=== PATIENT | female | born 1950 | race Caucasian/White ===

== ENCOUNTER 2019-09-13 11:34 | Inpatient (IN) | payer MEDICARE, OTHER ==
[2019-09-13] MEDS ORDERED: IPRATROPIUM 0.5 MG/2.5 ML NEBU INHALATION STA (12:07)
[2019-09-13] MEDS ORDERED: ALBUTEROL NEBULIZED 2.5 MG/3 ML INHALATION STA (12:07)
--- NOTE | 2019-09-13 12:17 | ED ---
General Adult HPI - General Chief complaint: Recheck/Abnormal Lab/Rx Stated complaint: Cold, slurred speech Time Seen by Provider: 09/13/19 11:55 Source: patient, RN notes reviewed, old records reviewed Mode of arrival: ambulatory - History of Present Illness Initial comments: 69-year-old female presenting for evaluation of cough and chest congestion. Patient has had symptoms for 24 hours. She has history of hypertension, congestive heart failure, sickle cell anemia. She recently moved to the area and does not have primary care physician or metal cutter. She states her last hemoglobin was normal but is unable to tell me the exact number. She denies weight gain, denies lower extremity edema. She denies significant chest pain. Denies abdominal pain nausea or vomiting. She is accompanied by her son who states she had an episode of mild confusion and slurred speech which resolved very quickly./The just seconds this morning while eating breakfast. She is at baseline with no complaints of focal numbness or weakness. No headache. - Related Data Allergies Allergy/AdvReac Type Severity Reaction Status Date / Time No Known Allergies Allergy Verified 09/13/19 14:12 Review of Systems ROS Statement: Those systems with pertinent positive or pertinent negative responses have been documented in the HPI. ROS Other: All systems not noted in ROS Statement are negative. Past Medical History Past Medical History: Heart Failure, Hyperlipidemia, Hypertension History of Any Multi-Drug Resistant Organisms: None Reported Past Surgical History: Tubal Ligation Smoking Status: Current every day smoker Past Alcohol Use History: Occasional Past Drug Use History: None Reported General Exam General appearance: alert, in no apparent distress Head exam: Present: atraumatic, normocephalic Eye exam: Present: normal appearance, PERRL. Absent: scleral icterus ENT exam: Present: mucous membranes dry Neck exam: Present: normal inspection. Absent: tenderness, meningismus Respiratory exam: Present: wheezes, rhonchi. Absent: respiratory distress Cardiovascular Exam: Present: regular rate, normal rhythm GI/Abdominal exam: Present: soft. Absent: distended, tenderness, guarding Extremities exam: Present: normal inspection, normal capillary refill. Absent: pedal edema Neurological exam: Present: alert, oriented X3, CN II-XII intact. Absent: motor sensory deficit Psychiatric exam: Present: normal affect, normal mood Skin exam: Present: warm, dry, intact. Absent: cyanosis, diaphoretic Course Vital Signs 09/13/19 09/13/19 09/13/19 11:42 12:28 12:38 Temperature 98.1 F Pulse Rate 82 86 Respiratory 18 16 Rate Blood Pressure 207/130 O2 Sat by Pulse 94 L Oximetry 09/13/19 09/13/19 09/13/19 12:51 13:42 13:52 Temperature Pulse Rate 88 Respiratory Rate Blood Pressure 233/138 213/137 O2 Sat by Pulse Oximetry 09/13/19 14:11 Temperature Pulse Rate Respiratory Rate Blood Pressure 202/128 O2 Sat by Pulse Oximetry EKG Findings - EKG Comments: EKG Findings:: EKG: Sinus rhythm with occasional PVC, left ventricular hypertrophy, no ST segment elevation, rate of 82, TN interval 164, QRS duration 88, QTC 493 Medical Decision Making - Medical Decision Making 69-year-old female history of hypertension, congestive heart failure, previous CVA, presenting with dyspnea for the past 24-48 hours mild cough. No URI symp toms. History of congestive heart failure. Patient also had an episode of slurred speech and dysarthria which lasted only momentarily. Patient well- appearing, hypertensive on initial exam with an NIH is 0. She has a CBC showing hemoglobin 13.0, no signs of anemia consistent with her history of sickle cell anemia. She has potassium 3.4 which is replaced. Chest x-ray showing pulmonary vascular congestion. This is treated with IV Lasix. She has a BNP of 9500 consistent with heart failure. She has a head CT which is negative for intracranial hemorrhage, there is significant ischemic change and remote occipital infarction. She's given an aspirin in the emergency department. She will be admitted for both hypertensive urgency, CHF, and rule out CVA. Cardiology and neurology placed on consult. Case is discussed with the admitting physician Dr. [email or web address] - Lab Data Result diagrams: 09/13/19 12:12 09/13/19 12:12 Lab Results 09/13/19 09/13/19 09/13/19 Range/Units 12:12 12:12 12:12 WBC 4.8 (3.8-10.6) k/uL RBC 4.83 (3.80-5.40) m/uL Hgb 13.0 (11.4-16.0) gm/dL Hct 39.8 (34.0-46.0) % MCV 82.3 (80.0-100.0) fL MCH 26.8 (25.0-35.0) pg MCHC 32.6 (31.0-37.0) g/dL RDW 14.2 (11.5-15.5) % Plt Count 171 (150-450) k/uL Neutrophils % 55 % Lymphocytes % 36 % Monocytes % 4 % Eosinophils % 2 % Basophils % 1 % Neutrophils # 2.6 (1.3-7.7) k/uL Lymphocytes # 1.7 (1.0-4.8) k/uL Monocytes # 0.2 (0-1.0) k/uL Eosinophils # 0.1 (0-0.7) k/uL Basophils # 0.0 (0-0.2) k/uL Retic Count (0.5-2.0) % PT (9.0-12.0) sec INR (<1.2) APTT (22.0-30.0) sec Sodium 142 (137-145) mmol/L Potassium 3.4 L (3.5-5.1) mmol/L Chloride 104 (98-107) mmol/L Carbon Dioxide 28 (22-30) mmol/L Anion Gap 10 mmol/L BUN 15 (7-17) mg/dL Creatinine 0.87 (0.52-1.04) mg/dL Est GFR (CKD-EPI)AfAm 78 (>60 ml/min/1.73 sqM) Est GFR (CKD-EPI)NonAf 68 (>60 ml/min/1.73 sqM) Glucose 106 H (74-99) mg/dL Plasma Lactic Acid Reuben (0.7-2.0) mmol/L Calcium 9.7 (8.4-10.2) mg/dL Magnesium 2.0 (1.6-2.3) mg/dL Total Bilirubin 1.8 H (0.2-1.3) mg/dL AST 55 H (14-36) U/L ALT 71 H (4-34) U/L Alkaline Phosphatase 181 H (38-126) U/L NT-Pro-B Natriuret Pep 9500 pg/mL Total Protein 8.3 H (6.3-8.2) g/dL Albumin 4.5 (3.5-5.0) g/dL Urine Color Urine Appearance (Clear) Urine pH (5.0-8.0) Ur Specific [place] (1.001-1.035) Urine Protein (Negative) Urine Glucose (UA) (Negative) Urine Ketones (Negative) Urine Blood (Negative) Urine Nitrite (Negative) Urine Bilirubin (Negative) Urine Urobilinogen (<2.0) mg/dL Ur Leukocyte Esterase (Negative) Urine RBC (0-5) /hpf Urine WBC (0-5) /hpf Urine WBC Clumps (None) /hpf Ur Squamous Epith Cells (0-4) /hpf Urine Bacteria (None) /hpf Urine Mucus (None) /hpf Influenza Type A RNA (Not Detectd) Influenza Type B (PCR) (Not Detectd) 09/13/19 09/13/19 09/13/19 Range/Units 12:12 12:12 12:21 WBC (3.8-10.6) k/uL RBC (3.80-5.40) m/uL Hgb (11.4-16.0) gm/dL Hct (34.0-46.0) % MCV (80.0-100.0) fL MCH (25.0-35.0) pg MCHC (31.0-37.0) g/dL RDW (11.5-15.5) % Plt Count (150-450) k/uL Neutrophils % % Lymphocytes % % Monocytes % % Eosinophils % % Basophils % % Neutrophils # (1.3-7.7) k/uL Lymphocytes # (1.0-4.8) k/uL Monocytes # (0-1.0) k/uL Eosinophils # (0-0.7) k/uL Basophils # (0-0.2) k/uL Retic Count 2.1 H (0.5-2.0) % PT 11.8 (9.0-12.0) sec INR 1.1 (<1.2) APTT 25.5 (22.0-30.0) sec Sodium (137-145) mmol/L Potassium (3.5-5.1) mmol/L Chloride (98-107) mmol/L Carbon Dioxide (22-30) mmol/L Anion Gap mmol/L BUN (7-17) mg/dL Creatinine (0.52-1.04) mg/dL Est GFR (CKD-EPI)AfAm (>60 ml/min/1.73 sqM) Est GFR (CKD-EPI)NonAf (>60 ml/min/1.73 sqM) Glucose (74-99) mg/dL Plasma Lactic Acid Reuben (0.7-2.0) mmol/L Calcium (8.4-10.2) mg/dL Magnesium (1.6-2.3) mg/dL Total Bilirubin (0.2-1.3) mg/dL AST (14-36) U/L ALT (4-34) U/L Alkaline Phosphatase (38-126) U/L NT-Pro-B Natriuret Pep pg/mL Total Protein (6.3-8.2) g/dL Albumin (3.5-5.0) g/dL Urine Color Urine Appearance (Clear) Urine pH (5.0-8.0) Ur Specific [place] (1.001-1.035) Urine Protein (Negative) Urine Glucose (UA) (Negative) Urine Ketones (Negative) Urine Blood (Negative) Urine Nitrite (Negative) Urine Bilirubin (Negative) Urine Urobilinogen (<2.0) mg/dL Ur Leukocyte Esterase (Negative) Urine RBC (0-5) /hpf Urine WBC (0-5) /hpf Urine WBC Clumps (None) /hpf Ur Squamous Epith Cells (0-4) /hpf Urine Bacteria (None) /hpf Urine Mucus (None) /hpf Influenza Type A RNA Not Detected (Not Detectd) Influenza Type B (PCR) Not Detected (Not Detectd) 09/13/19 09/13/19 Range/Units 12:31 12:36 WBC (3.8-10.6) k/uL RBC (3.80-5.40) m/uL Hgb (11.4-16.0) gm/dL Hct (34.0-46.0) % MCV (80.0-100.0) fL MCH (25.0-35.0) pg MCHC (31.0-37.0) g/dL RDW (11.5-15.5) % Plt Count (150-450) k/uL Neutrophils % % Lymphocytes % % Monocytes % % Eosinophils % % Basophils % % Neutrophils # (1.3-7.7) k/uL Lymphocytes # (1.0-4.8) k/uL Monocytes # (0-1.0) k/uL Eosinophils # (0-0.7) k/uL Basophils # (0-0.2) k/uL Retic Count (0.5-2.0) % PT (9.0-12.0) sec INR (<1.2) APTT (22.0-30.0) sec Sodium (137-145) mmol/L Potassium (3.5-5.1) mmol/L Chloride (98-107) mmol/L Carbon Dioxide (22-30) mmol/L Anion Gap mmol/L BUN (7-17) mg/dL Creatinine (0.52-1.04) mg/dL Est GFR (CKD-EPI)AfAm (>60 ml/min/1.73 sqM) Est GFR (CKD-EPI)NonAf (>60 ml/min/1.73 sqM) Glucose (74-99) mg/dL Plasma Lactic Acid Reuben 1.2 (0.7-2.0) mmol/L Calcium (8.4-10.2) mg/dL Magnesium (1.6-2.3) mg/dL Total Bilirubin (0.2-1.3) mg/dL AST (14-36) U/L ALT (4-34) U/L Alkaline Phosphatase (38-126) U/L NT-Pro-B Natriuret Pep pg/mL Total Protein (6.3-8.2) g/dL Albumin (3.5-5.0) g/dL Urine Color Yellow Urine Appearance Cloudy H (Clear) Urine pH 6.5 (5.0-8.0) Ur Specific [place] 1.011 (1.001-1.035) Urine Protein 2+ H (Negative) Urine Glucose (UA) Negative (Negative) Urine Ketones Negative (Negative) Urine Blood Large H (Negative) Urine Nitrite Positive H (Negative) Urine Bilirubin Negative (Negative) Urine Urobilinogen 2.0 (<2.0) mg/dL Ur Leukocyte Esterase Large H (Negative) Urine RBC 153 H (0-5) /hpf Urine WBC 67 H (0-5) /hpf Urine WBC Clumps Rare H (None) /hpf Ur Squamous Epith Cells 1 (0-4) /hpf Urine Bacteria Moderate H (None) /hpf Urine Mucus Rare H (None) /hpf Influenza Type A RNA (Not Detectd) Influenza Type B (PCR) (Not Detectd) Critical Care Time Critical Care Time: Yes Total Critical Care Time: 35 Disposition Clinical Impression: TIA (transient ischemic attack), CHF (congestive heart failure) Disposition: ADMITTED IP TO THIS [facility] Condition: Stable Is patient prescribed a controlled substance at d/c from ED?: No Referrals: None,Stated [Primary Care Provider] - 1-2 days Decision to Admit Reason: Admit from EC Decision Date: 09/13/19 Decision Time: 14:34
[2019-09-13 12:33] LABS: Basophils % (A) 1 %; Eosinophils # (A) 0.1 k/uL (0-0.7); Eosinophils % (A) 2 %; HCT 39.8 % (34.0-46.0); Lymphocytes # (A) 1.7 k/uL (1.0-4.8); Lymphocytes % (A) 36 %; MCH 26.8 pg (25.0-35.0); MCHC 32.6 g/dL (31.0-37.0); MCV 82.3 fL (80.0-100.0); Mean Platelet Volume 9.9; Monocytes # (A) 0.2 k/uL (0-1.0); Monocytes % (A) 4 %; Neutrophils # (A) 2.6 k/uL (1.3-7.7); Neutrophils % (A) 55 %; Platelet Count 171 k/uL (150-450); RBC 4.83 m/uL (3.80-5.40); RDW 14.2 % (11.5-15.5); WBC 4.8 k/uL (3.8-10.6)
[2019-09-13 12:37] LABS: INR 1.1 (<1.2); Partial Thromboplastin Time 25.5 sec (22.0-30.0); Prothrombin Time 11.8 sec (9.0-12.0)
[2019-09-13 12:41] LABS: Albumin 4.5 g/dL (3.5-5.0); Calcium 9.7 mg/dL (8.4-10.2); Potassium 3.4 mmol/L (3.5-5.1); Total Bilirubin 1.8 mg/dL (0.2-1.3); Total Protein 8.3 g/dL (6.3-8.2)
[2019-09-13 12:58] LABS: Reticulocyte % 2.1 % (0.5-2.0)
[2019-09-13 13:20] LABS: Appearance,Urine Cloudy (Clear); Bacteria,Urine Moderate /hpf; Bilirubin,Urine Negative (Negative); Blood,Urine Large (Negative); Color,Urine Yellow; Glucose,Urine (UA) Negative (Negative); Ketones,Urine Negative (Negative); Leukocyte Esterase,Urine Large (Negative); Mucus,Urine Rare /hpf; Nitrite,Urine Positive (Negative); PH, Urine 6.5 (5.0-8.0); Protein,Urine 2+ (Negative); RBC,Urine 153 /hpf (0-5); Specific Gravity,Urine 1.011 (1.001-1.035); Squamous Epithelial Cell,Urine 1 /hpf (0-4); WBC,Urine 67 /hpf (0-5)
--- NOTE | 2019-09-13 13:28 | XR ---
EXAMINATION TYPE: XR chest 2V DATE OF EXAM: 09/13/2019 COMPARISON: NONE HISTORY: Difficulty breathing, altered mental status TECHNIQUE: Frontal and lateral views of the chest are obtained. FINDINGS: The heart is enlarged. Central vascularity and interstitium are increased. Blunting the ri ght costophrenic angle. No evident pneumothorax. Arthropathy noted within the shoulders. There are ov erlying cardiac leads. IMPRESSION: Correlate for pulmonary venous hypertension and interstitial edema. Possible small basil ar effusion. Follow-up recommended.
[2019-09-13] MEDS ORDERED: NITROGLYCERIN SL TABS 0.4 MG TAB SUBLINGUAL STA (13:32)
[2019-09-13] MEDS ORDERED: FUROSEMIDE 10 MG/ML 4 ML VIAL IV STA (13:33)
[2019-09-13] MEDS ORDERED: POTASSIUM CHLORIDE ER 20 MEQ TAB.ER PO STA (13:33)
[2019-09-13] MEDS ORDERED: LABETALOL 5 MG/ML VIAL MDV IVP STA ×2 (13:33→14:40)
[2019-09-13] MEDS ORDERED: cefTRIAXone IN SWFI 1,000 MG/10 ML SYRINGE IVP STA (13:34)
--- NOTE | 2019-09-13 13:39 | CT ---
EXAMINATION TYPE: CT brain wo con DATE OF EXAM: 09/13/2019 HISTORY: slurred speech CT DLP: 964.6 mGycm. Automated Exposure Control for Dose Reduction was Utilized. TECHNIQUE: CT scan of the head is performed without contrast. COMPARISON: None. FINDINGS: There is no acute intracranial hemorrhage or midline shift identified. Ventricles and sul ci are within normal limits in size for patient's age. There are areas of low-attenuation throughout the deep and periventricular white matter with more prominent involvement left occipital lobe. Slight ex vacuo dilatation of the left occipital horn versus the opposite right side is thought present. Bi lateral basal ganglia calcifications. The globes are intact and the visualized sinuses are clear. IMPRESSION: No acute intracranial hemorrhage or midline shift. Fairly severe nonspecific white matte r changes most likely on basis of product of chronic small vessel ischemic change in patient of this age. Suspect more focal chronic infarct left occipital lobe.
[2019-09-13] MEDS ORDERED: ASPIRIN 325 MG TAB PO STA (13:49)
[2019-09-13] MEDS ORDERED: LABETALOL 5 MG/ML VIAL MDV IVP PRN (14:29)
[2019-09-13] MEDS ORDERED: amLODIPine 5 MG TAB PO STA (14:34)
[2019-09-13] MEDS ORDERED: METOPROLOL TARTRATE 12.5 MG TAB PO STA (14:34)
--- NOTE | 2019-09-13 15:32 | P.HPIM ---
History of Present Illness This is a pleasant 69 years old -[place] female with past medical history of congestive heart failure, hypertension, hyperlipidemia, every day cigarette smoker. Presents because of slurred/slow speech. Her speech abdominal tube was noticed by her son and ask her to come to emergency room. Patient is not very good historian. She denies headache, no weakness or abnormal sensation in limbs. No blurred vision, no swallowing difficulty. Patient also complained from orthopnea but no paroxysmal nocturnal dyspnea. She has some epigastric discomfort earlier this morning but no chest pain. Patient denies specific urinary symptoms, no diarrhea. No fever. No back pain. Patient is slow to respond, she has some memory problems, she says that she is not from the area and she was visiting her siblings the stay in [place] however she could not tell me what exactly she came in from as she forgot but she states she is from [place]. Patient was sitting on the chair, resting comfortably not in distress. On admission patient blood pressure was significantly elevated at 233/138 , she received several doses of IV labetalol, her blood pressure went down to 180/126, her speech is back to normal now. She denies any other symptoms currently. No chest pain or epigastric discomfort or urinary symptoms On admission Vitas looks stable however blood pressure was on the high side at 233/138, labs including CBC, INR, BMP are unremarkable with normal creatinine 0.87, potassium was 3.4. Lactic acid not elevated 1.2, bilirubin is 1.8, AST 55, ALT 71, proBNP is elevated at 9500, urinalysis is suspicious for infection. Chest x-ray showing pulmonary edema. CT of the present: No acute process like hemorrhage or mass effect. However there is severe chronic small vessel ischemic changes and there is chronic left occipital infarct In the emergency room patient got ceftriaxone, Lasix 40 mg IV once, labetalol 10 mg, nitroglycerin, and 1 dose of potassium chloride Review of Systems CONSTITUTIONAL: No fever, no malaise, no fatigue. HEENT: No recent visual problems or hearing problems. Denied any sore throat. CARDIOVASCULAR: No orthopnea, PND, no palpitations, no syncope. PULMONARY: No shortness of breath, no cough, no hemoptysis. GASTROINTESTINAL: No diarrhea, no nausea, no vomiting, no abdominal pain. Normoactive bowel sounds. NEUROLOGICAL: No headaches, no weakness, no numbness. HEMATOLOGICAL: Denies any bleeding or petechiae. GENITOURINARY: Denies any burning micturition, frequency, or urgency. MUSCULOSKELETAL/RHEUMATOLOGICAL: Denies any joint pain, swelling, or any muscle pain. ENDOCRINE: Denies any polyuria or polydipsia. Past Medical History Past Medical History: Heart Failure, Hyperlipidemia, Hypertension History of Any Multi-Drug Resistant Organisms: None Reported Past Surgical History: Tubal Ligation Smoking Status: Current every day smoker Past Alcohol Use History: Occasional Past Drug Use History: None Reported - Past Family History Father Family Medical History: No Reported History Additional Family Medical History / Comment(s): Father was healthy Mother Family Medical History: Hypertension Medications and Allergies Allergies Allergy/AdvReac Type Severity Reaction Status Date / Time No Known Allergies Allergy Verified 09/13/19 14:12 Physical Exam Vitals: Vital Signs Temp Pulse Resp BP Pulse Ox 09/13/19 13:52 213/137 09/13/19 13:42 233/138 09/13/19 12:51 88 09/13/19 12:38 86 09/13/19 12:28 16 09/13/19 11:42 98.1 F 82 18 207/130 94 L Intake and Output 09/12/19 09/13/19 09/13/19 22:59 06:59 14:59 Other: Weight 61.462 kg GENERAL: The patient is alert and oriented x3, not in any acute distress. Well developed, well nourished. HEENT: Pupils are round and equally reacting to light. EOMI. No scleral icterus. No conjunctival pallor. Normocephalic, atraumatic. No pharyngeal erythema. No thyromegaly. CARDIOVASCULAR: S1 and S2 present. No murmurs, rubs, or gallops. -PULMONARY: Chest is clear to auscultation, mild bilateral basal crepitation ABDOMEN: Soft, nontender, nondistended, normoactive bowel sounds. No palpable organomegaly. MUSCULOSKELETAL: No joint swelling or deformity. EXTREMITIES: No cyanosis, clubbing, or pedal edema. -NEUROLOGICAL: Gross neurological examination did not reveal any focal deficits. She responds to questions slowly with memory difficulties SKIN: No rashes. No petechiae Results CBC & Chem 7: 09/13/19 12:12 09/13/19 12:12 Labs: Abnormal Lab Results - Last 24 Hours (Table) 09/13/19 09/13/19 09/13/19 Range/Units 12:12 12:12 12:36 Retic Count 2.1 H (0.5-2.0) % Potassium 3.4 L (3.5-5.1) mmol/L Glucose 106 H (74-99) mg/dL Total Bilirubin 1.8 H (0.2-1.3) mg/dL AST 55 H (14-36) U/L ALT 71 H (4-34) U/L Alkaline Phosphatase 181 H (38-126) U/L Total Protein 8.3 H (6.3-8.2) g/dL Urine Appearance Cloudy H (Clear) Urine Protein 2+ H (Negative) Urine Blood Large H (Negative) Urine Nitrite Positive H (Negative) Ur Leukocyte Esterase Large H (Negative) Urine RBC 153 H (0-5) /hpf Urine WBC 67 H (0-5) /hpf Urine WBC Clumps Rare H (None) /hpf Urine Bacteria Moderate H (None) /hpf Urine Mucus Rare H (None) /hpf Assessment and Plan Assessment: Hypertensive urgency Acute on chronic congestive heart failure, unknown ejection fraction Acute urinary tract infection Elevated liver enzymes old OCCIPITAL infarct with severe small vessel ischemic changes of the brain Plan: This is a pleasant 69 years old female who presents with hypertensive urgency, CHF, UTI. Continue with antihypertensive and follow-up blood pressure closely, continue with Lasix intravenously, monitored input and output. Consult cardiology. We will check troponins and check echocardiogram. Continue with ceftriaxone FOLLOW-UP URINE CULTURE. Monitor liver enzymes Labs and medication were reviewed.. Continue same treatment. Continue with symptomatic treatment. Resume home medication. Monitor lytes and vitals. DVT and GI prophylaxis. Further recommendations of the clinical course of the patient DVT prophylaxis: Subcutaneous heparin, Once blood pressure is better controlled GI Prophylaxis: Pepcid PT/OT: Pending Prognosis is guarded
--- NOTE | 2019-09-13 16:17 | US ---
EXAMINATION TYPE: US carotid duplex BILAT DATE OF EXAM: 09/13/2019 COMPARISON: NONE CLINICAL HISTORY: Stenosis. Slurred speech EXAM MEASUREMENTS: RIGHT: Peak Systolic Velocity (PSV) cm/sec ----- Right CCA: 27.9 ----- Right ICA: 46.4 ----- Right ECA: 15.9 ICA/CCA ratio: 1.7 RIGHT: End Diastole cm/sec ----- Right CCA: 5.5 ----- Right ICA: 13.3 ----- Right ECA: 0.0 LEFT: Peak Systolic Velocity (PSV) cm/sec ----- Left CCA: 31.3 ----- Left ICA: 64.0 ----- Left ECA: 28.0 ICA/CCA ratio: 2.0 LEFT: End Diastole cm/sec ----- Left CCA: 7.5 ----- Left ICA: 24.6 ----- Left ECA: 0.0 VERTEBRALS (direction of flow): Right Vertebral: Antegrade Left Vertebral: Antegrade Rhythm: Normal Bilateral intimal thickening, no elevated velocities, left ICA/CCA ratio 2.0 IMPRESSION: No evidence for hemodynamically significant stenosis. Criteria for Assigning % of Stenosis / Diameter reduction (Estimation based on the indirect measurements of the internal carotid artery velocities (ICA PSV). 1. Normal (no stenosis)=ICA PSV < 125 cm/s: ratio < 2.0: ICA EDV<40 cm/s. 2. Less than 50% stenosis=ICA PSV < 125 cm/s: ratio < 2.0: ICA EDV<40 cm/s. 3. 50 to 69% stenosis=ICA PSV of 125 to 230 cm/s: ration 2.0 ? 4.0: ICA EDV 40-100 cm/s. 4. Greater than 70% stenosis to near occlusion= ICA PSV > 230 cm/s: ratio > 4.0: ICA EDV > 100 cm/s. 5. Near occlusion= ICA PSV velocities may be low or undetectable: variable ratio and ICA EDV. 6. Total occlusion=unable to detect flow.
[2019-09-13] MEDS ORDERED: hydrALAZINE HCL 20 MG/ML 1 ML VIAL IVP STA (16:19)
[2019-09-13] MEDS: SODIUM CHLORIDE 0.9% 1,000 ML IV SCH (17:46)
--- NOTE | 2019-09-13 20:02 | ECHOF ---
Referral Reason:Thrombus MEASUREMENTS -------- HEIGHT: 152.4 cm WEIGHT: 61.2 kg BP: 180/126 RVIDd: 3.4 cm (< 3.3) IVSd: 1.5 cm (0.6 - 1.1) LVIDd: 5.1 cm (3.9 - 5.3) LVPWd: 1.5 cm (0.6 - 1.1) IVSs: 1.5 cm LVIDs: 4.5 cm LVPWs: 1.8 cm LA Diam: 4.1 cm (2.7 - 3.8) LAESV Index (A-L): 40.71 ml/m Ao Diam: 3.2 cm (2.0 - 3.7) AV Cusp: 1.8 cm (1.5 - 2.6) MV EXCURSION: 11.063 mm (> 18.000) MV EF SLOPE: 10 mm/s (70 - 150) EPSS: 2.0 cm MV E [place]: 0.77 m/s MV DecT: 219 ms MV A [place]: 0.58 m/s MV E/A Ratio: 1.33 AR PHT: 1093 ms RAP: 15.00 mmHg RVSP: 69.10 mmHg FINDINGS -------- Sinus rhythm. This was a technically adequate study. The left ventricular size is normal. There is moderate concentric left ventricular hypertrophy. T here is severe global hypokinesis of LV . Overall left ventricular systolic function is severely im paired with, an EF between 20 - 25 %. The right ventricle is mildly enlarged. LA is severely dilated >40 ml/m2 The right atrial size is normal. Interatrial and interventricular septum intact. The aortic valve is trileaflet and appears structurally normal. There is mild aortic regurgitation. The mitral valve leaflets are mildly thickened. Moderate mitral regurgitation is present. Moderate tricuspid regurgitation present. There is severe pulmonary hypertension. The right ventr icular systolic pressure, as measured by Doppler, is 69.10mmHg. Moderate pulmonic regurgitation. The aortic root size is normal. The inferior vena cava is dilated with no significant inspiratory collapse which is consistent estima cody right atrial pressure of >15 mmHg. There is no pericardial effusion. CONCLUSIONS -------- 1. Sinus rhythm. 2. The left ventricular size is normal. 3. There is moderate concentric left ventricular hypertrophy. 4. There is severe global hypokinesis of LV . 5. Overall left ventricular systolic function is severely impaired with, an EF between 20 - 25 %. 6. The right ventricle is mildly enlarged. 7. LA is severely dilated >40 ml/m2 8. The aortic valve is trileaflet and appears structurally normal. 9. There is mild aortic regurgitation. 10. Moderate mitral regurgitation is present. 11. Moderate tricuspid regurgitation present. 12. There is severe pulmonary hypertension. 13. Moderate pulmonic regurgitation. 14. The aortic root size is normal. 15. The inferior vena cava is dilated with no significant inspiratory collapse which is consistent es timated right atrial pressure of >15 mmHg. 16. There is no pericardial effusion. [employer] SAL[employer] CLERK: Carolina Olivas RDCS
[2019-09-13] MEDS: FUROSEMIDE 10 MG/ML 4 ML VIAL IV SCH (20:15)
[2019-09-13] MEDS: METOPROLOL TARTRATE 25 MG TAB PO SCH (20:15)
[2019-09-13] MEDS: FAMOTIDINE 20 MG/2 ML VIAL IV SCH (20:15)
--- NOTE | 2019-09-13 20:26 | P.CNNES ---
History of Present Illness Consult date: 09/13/19 Requesting physician: Mandeep Florez Reason for Consult: TIA History of Present Illness: Patient is a 69-year-old female, who was in usual state of health, woke up this morning. She felt fine, but when she was talking to her son, who he felt that patient was having slurred speech. He did not like how she was speaking and he got concerned and decided her to bring to the hospital. Patient states that this speech difficulty lasted only for 5-10 minutes and then went away. Denies any other focal neurological symptoms whatsoever like numbness tingling focal weakness problem with the vision headache. Her speech is back to baseline. Patient does have history of hypertension on her life. Denies any diabetes or tobacco use. Patient does not take any antiplatelet medication at home. When she arrived her blood pressure was 207/130 with pulse rate of 82. It then went up to 233/138. Her most recent blood pressure is 161/90. Computed tomography scan of head showed no acute intracranial hemorrhage or midline shift. Fairly severe nonspecific white matter changes most likely on the basis of product of chronic small vessel ischemic change in patient of this age. Suspect more focal chronic infarct left occipital lobe. Patient had an EKG, which revealed sinus rhythm with occasional PVC. Left ventricular hypertrophy. Patient had a carotid Doppler, which was normal. Antegrade flow in both vertebr al arteries. Patient had a 2-D echo, in which there is severe global hypokinesis of left ventricle. Overall left-ventricular systolic function is severely impaired with EF between 20-25%. Left atrium is severely dilated. There is mild aortic regurgitation. Moderate MR. Moderate TR. Severe pul monary hypertension. At present patient feels fine. Review of Systems Completely unremarkable except for HPI. Past Medical History Past Medical History: Heart Failure, Hyperlipidemia, Hypertension Additional Past Medical History / Comment(s): Sickle cell anemia, pt states she thinks she may have had a prior TIA History of Any Multi-Drug Resistant Organisms: None Reported Past Surgical History: Tubal Ligation Past Anesthesia/Blood Transfusion Reactions: No Reported Reaction Smoking Status: Current every day smoker Past Alcohol Use History: Occasional Past Drug Use History: None Reported - Past Family History Father Family Medical History: No Reported History Additional Family Medical History / Comment(s): Father was healthy Mother Family Medical History: Hypertension Medications and Allergies Home Medications Medication Instructions Recorded Confirmed Type Atorvastatin [Lipitor] 40 mg PO DAILY 09/13/19 09/13/19 History Carvedilol [Coreg] 25 mg PO BID 09/13/19 09/13/19 History Furosemide [Lasix] 40 mg PO BID 09/13/19 09/13/19 History Isosorbide Mononitrate ER [Imdur] 30 mg PO DAILY 09/13/19 09/13/19 History Sacubitril/Valsartan [Entresto 97 1 tab PO BID 09/13/19 09/13/19 History mg-103 mg Tablet] Spironolactone [Aldactone] 25 mg PO DAILY 09/13/19 09/13/19 History hydrALAZINE HCL [Apresoline] 25 mg PO BID 09/13/19 09/13/19 History Allergies Allergy/AdvReac Type Severity Reaction Status Date / Time No Known Allergies Allergy Verified 09/13/19 14:12 Physical Examination - Vital Signs Vital Signs: Vital Signs Temp Pulse Pulse Resp BP BP Pulse Ox 09/13/19 18:12 97.6 F 71 20 161/90 94 L 09/13/19 17:21 178/109 09/13/19 17:05 195/114 09/13/19 16:19 62 19 166/88 98 09/13/19 14:45 180/126 09/13/19 14:11 202/128 09/13/19 13:52 213/137 09/13/19 13:42 233/138 09/13/19 12:51 88 09/13/19 12:38 86 09/13/19 12:28 16 09/13/19 11:42 98.1 F 82 18 207/130 94 L Intake and Output 09/13/19 09/13/19 09/13/19 06:59 14:59 22:59 Other: Weight 61.462 kg 61.462 kg On examination patient is an elderly Afro-[place] female, in no distress. Her mental status, speech and language functions are normal. Attention and concentration fund of knowledge is adequate. On cranial exertion pupils are r ound and reacting to light, visual medina are full on confrontation extra muscles are intact with no nystagmus. Face is symmetric and tongue protrudes the midline. On muscle strength testing patient has very mild right pronation, no drift. The strength is normal in arms and legs distally and proximally. Reflexes are 2+ all over and plantars are withdrawal. Sensory touch is equal with no neglect. No ataxia for [id number] testing. Tone and bulk of muscles normal. Results - Laboratory Findings CBC and BMP: 09/13/19 12:12 09/13/19 12:12 Abnormal Lab Findings: Abnormal Labs 09/13/19 09/13/19 09/13/19 12:12 12:12 12:36 Retic Count 2.1 H Potassium 3.4 L Glucose 106 H Total Bilirubin 1.8 H AST 55 H ALT 71 H Alkaline Phosphatase 181 H Total Protein 8.3 H Urine Appearance Cloudy H Urine Protein 2+ H Urine Blood Large H Urine Nitrite Positive H Ur Leukocyte Esterase Large H Urine RBC 153 H Urine WBC 67 H Urine WBC Clumps Rare H Urine Bacteria Moderate H Urine Mucus Rare H Assessment and Plan Assessment: * Possible TIA manifesting with transient slurred speech lasting for 5-10 minutes. * Uncontrolled hypertension with hypertensive emergency. * Possible UTI. * Elevated liver enzymes. Plan: * Agree with starting aspirin regimen. Patient was not on any antiplatelet medication at home. * Patient had an abnormal echo. Rule out embolic source. Await cardiology consultation. * Management of possible UTI and elevated liver enzymes, as per internal medicine. * Aggressive control of blood pressure. * Patient to undergo lipid panel in the morning. * Neurology coverage not available on the weekend.
[2019-09-13] MEDS ORDERED: hydrALAZINE HCL 25 MG TAB PO PRN (20:40)
[2019-09-13] MEDS: HEPARIN SODIUM,PORCINE 5,000 UNIT/ML 1 ML VIAL SQ SCH (21:36)
[2019-09-14 06:31] LABS: Albumin 3.9 g/dL (3.5-5.0); Bilirubin, Delta 0.6 mg/dL (0.0-0.2); Bilirubin,Unconjugated 1.1 mg/dL (0.0-1.1); Calcium 9.3 mg/dL (8.4-10.2); Magnesium 1.6 mg/dL (1.6-2.3); Potassium 3.1 mmol/L (3.5-5.1); Total Bilirubin 1.7 mg/dL (0.2-1.3); Total Protein 7.4 g/dL (6.3-8.2)
[2019-09-14 06:38] LABS: Basophils % (A) 1 %; Eosinophils # (A) 0.1 k/uL (0-0.7); Eosinophils % (A) 2 %; HCT 34.7 % (34.0-46.0); HGB 11.7 gm/dL (11.4-16.0); Lymphocytes # (A) 1.8 k/uL (1.0-4.8); Lymphocytes % (A) 37 %; MCH 27.5 pg (25.0-35.0); MCHC 33.7 g/dL (31.0-37.0); MCV 81.5 fL (80.0-100.0); Mean Platelet Volume 10.7; Monocytes # (A) 0.3 k/uL (0-1.0); Monocytes % (A) 6 %; Neutrophils # (A) 2.5 k/uL (1.3-7.7); Neutrophils % (A) 51 %; Platelet Count 153 k/uL (150-450); RBC 4.25 m/uL (3.80-5.40); RDW 14.1 % (11.5-15.5); WBC 4.8 k/uL (3.8-10.6)
--- NOTE | 2019-09-14 08:45 | P.PN ---
Subjective This is a pleasant 69 years old -[place] female with past medical history of congestive heart failure, hypertension, hyperlipidemia, every day cigarette smoker. Presents because of slurred/slow speech. Her speech abdominal tube was noticed by her son and ask her to come to emergency room. Patient is not very good historian. She denies headache, no weakness or abnormal sensation in limbs. No blurred vision, no swallowing difficulty. Patient also complained from orthopnea but no paroxysmal nocturnal dyspnea. She has some epigastric discomfort earlier this morning but no chest pain. Patient denies specific urinary symptoms, no diarrhea. No fever. No back pain. Patient is slow to respond, she has some memory problems, she says that she is not from the area and she was visiting her siblings the stay in [place] however she could not tell me what exactly she came in from as she forgot but she states she is from [place]. Patient was sitting on the chair, resting comfortably not in distress. On admission patient blood pressure was significantly elevated at 233/138 , she received several doses of IV labetalol, her blood pressure went down to 180/126, her speech is back to normal now. She denies any other symptoms currently. No chest pain or epigastric discomfort or urinary symptoms On admission Vitas looks stable however blood pressure was on the high side at 233/138, labs including CBC, INR, BMP are unremarkable with normal creatinine 0.87, potassium was 3.4. Lactic acid not elevated 1.2, bilirubin is 1.8, AST 55, ALT 71, proBNP is elevated at 9500, urinalysis is suspicious for infection. Chest x-ray showing pulmonary edema. CT of the present: No acute process like hemorrhage or mass effect. However there is severe chronic small vessel ischemic changes and there is chronic left occipital infarct In the emergency room patient got ceftriaxone, Lasix 40 mg IV once, labetalol 10 mg, nitroglycerin, and 1 dose of potassium chloride 09/14/2019 Patient awake and oriented. Her speech is better today, close to normal, and she responds better than yesterday when her response was slow. No weakness or numbness. She is breathing fine with no dyspnea. No chest pain. She has some epigastric discomfort earlier which is resolved now. No urinary dysuria however she has hesitancy. She's been more frequent probably from her Lasix. Also she has bilateral leg edema. Vitals are stable and her blood pressure significantly improved, this morning is 145/77 and heart rate is 75. She remains on Norvasc and metoprolol 25 mg twice daily. Also she is on Lasix 40 mg IV twice daily. She is on Rocephin for her UTI. Potassium 3.1, liver enzymes monthly trending down, but opened 1.7 compared to 1.8. We will order for ultrasound. Lactic acid is normal at 1.2. Rest of the CBC is unremarkable. Echocardiogram showing ejection fraction of 20-25% with moderate M Donaldo regurgitation, tricuspid regurgitation and pulmonary valve regurgitation. Patient with severe pulmonary hypertension Also this morning patient told me last week she was with her son in [place] for 2 weeks, although she lives with her son and daughter here in [place], [place] Review of systems CONSTITUTIONAL: No fever, no malaise, no fatigue. HEENT: No recent visual problems or hearing problems. Denied any sore throat. CARDIOVASCULAR: No orthopnea, PND, no palpitations, no syncope. PULMONARY: No shortness of breath, no cough, no hemoptysis. GASTROINTESTINAL: No diarrhea, no nausea, no vomiting, no abdominal pain. Normoactive bowel sounds. NEUROLOGICAL: No headaches, no weakness, no numbness. HEMATOLOGICAL: Denies any bleeding or petechiae. GENITOURINARY: Denies any burning micturition, frequency, or urgency. MUSCULOSKELETAL/RHEUMATOLOGICAL: Denies any joint pain, swelling, or any muscle pain. ENDOCRINE: Denies any polyuria or polydipsia. Active Medications Amlodipine Besylate (Norvasc) 5 mg PO DAILY [facility] Aspirin (Aspirin) 325 mg PO DAILY [facility] Famotidine (Pepcid) 20 mg IV Q12HR [facility] Last Admin: 09/13/19 20:15 Dose: 20 mg Documented by: Furosemide (Lasix) 40 mg IV Q12HR [facility] Last Admin: 09/13/19 20:15 Dose: 40 mg Documented by: Heparin Sodium (Porcine) (Heparin) 5,000 unit SQ Q12HR [facility] Last Admin: 09/13/19 21:36 Dose: 5,000 unit Documented by: Hydralazine HCl (Apresoline) 25 mg PO TID PRN PRN Reason: Blood Pressure - High Sodium Chloride (Saline 0.9%) 1,000 mls @ 20 mls/hr IV .Q24H [facility] Last Admin: 09/13/19 17:46 Dose: Not Given Documented by: Ceftriaxone Sodium 1 gm/ (Sodium Chloride) 50 mls @ 100 mls/hr IVPB Q24H [facility] Labetalol HCl (Trandate) 10 mg IVP Q1HR PRN PRN Reason: Hypertension Metoprolol Tartrate (Lopressor) 25 mg PO BID [facility] Last Admin: 09/13/19 20:15 Dose: 25 mg Documented by: Objective - Vital Signs Vital signs: Vital Signs Temp 98 F 09/14/19 03:48 Pulse 75 09/14/19 03:48 Resp 18 09/14/19 03:48 BP 145/77 09/14/19 03:48 Pulse Ox 97 09/14/19 03:48 Intake & Output 09/13/19 09/14/19 09/14/19 18:59 06:59 18:59 Intake Total 120 Balance 120 Weight 61.462 kg 54.6 kg Intake: Oral 120 Other: # Voids 1 - Exam GENERAL: The patient is alert and oriented x3, not in any acute distress. Well developed, well nourished. HEENT: Pupils are round and equally reacting to light. EOMI. No scleral icterus. No conjunctival pallor. Normocephalic, atraumatic. No pharyngeal erythema. No thyromegaly. CARDIOVASCULAR: S1 and S2 present. No murmurs, rubs, or gallops. PULMONARY: Chest is clear to auscultation, no crepitation or wheezing ABDOMEN: Soft, nontender, nondistended, normoactive bowel sounds. No palpable organomegaly. MUSCULOSKELETAL: No joint swelling or deformity. -EXTREMITIES: No cyanosis, clubbing,. Bilateral pitting leg edema. NEUROLOGICAL: Gross neurological examination did not reveal any focal deficits. SKIN: No rashes. No petechiae - Labs CBC & Chem 7: 09/14/19 05:45 09/14/19 05:45 Labs: Abnormal Lab Results - Last 24 Hours (Table) 09/13/19 09/13/19 09/13/19 Range/Units 12:12 12:12 12:36 Retic Count 2.1 H (0.5-2.0) % Potassium 3.4 L (3.5-5.1) mmol/L BUN (7-17) mg/dL Glucose 106 H (74-99) mg/dL Total Bilirubin 1.8 H (0.2-1.3) mg/dL Delta Bilirubin (0.0-0.2) mg/dL AST 55 H (14-36) U/L ALT 71 H (4-34) U/L Alkaline Phosphatase 181 H (38-126) U/L Total Protein 8.3 H (6.3-8.2) g/dL Urine Appearance Cloudy H (Clear) Urine Protein 2+ H (Negative) Urine Blood Large H (Negative) Urine Nitrite Positive H (Negative) Ur Leukocyte Esterase Large H (Negative) Urine RBC 153 H (0-5) /hpf Urine WBC 67 H (0-5) /hpf Urine WBC Clumps Rare H (None) /hpf Urine Bacteria Moderate H (None) /hpf Urine Mucus Rare H (None) /hpf 09/14/19 Range/Units 05:45 Retic Count (0.5-2.0) % Potassium 3.1 L (3.5-5.1) mmol/L BUN 20 H (7-17) mg/dL Glucose 107 H (74-99) mg/dL Total Bilirubin 1.7 H (0.2-1.3) mg/dL Delta Bilirubin 0.6 H (0.0-0.2) mg/dL AST 47 H (14-36) U/L ALT 55 H (4-34) U/L Alkaline Phosphatase 138 H (38-126) U/L Total Protein (6.3-8.2) g/dL Urine Appearance (Clear) Urine Protein (Negative) Urine Blood (Negative) Urine Nitrite (Negative) Ur Leukocyte Esterase (Negative) Urine RBC (0-5) /hpf Urine WBC (0-5) /hpf Urine WBC Clumps (None) /hpf Urine Bacteria (None) /hpf Urine Mucus (None) /hpf Microbiology - Last 24 Hours (Table) 09/13/19 12:36 Urine Culture - Preliminary Urine,Clean Catch Assessment and Plan Assessment: Hypertensive urgency , markedly improved Acute on systolic chronic congestive heart failure, ejection fraction 20-25% Acute urinary tract infection Elevated liver enzymes Heart valvular disease, moderate mitral regurgitation, tricuspid regurgitation and pulmonary valve regurgitation severe pulmonary hypertension old OCCIPITAL infarct with severe small vessel ischemic changes of the brain Plan: This is a pleasant 69 years old female who presents with hypertensive urgency, CHF, UTI. Continue with antihypertensive and follow-up blood pressure closely, continue with Lasix intravenously, monitored input and output. Consult cardiology. We will check troponins . Continue with ceftriaxone FOLLOW-UP URINE CULTURE. Liver ultrasound. Labs and medication were reviewed.. Continue same treatment. Continue with symptomatic treatment. Resume home medication. Monitor lytes and vitals. DVT and GI prophylaxis. Further recommendations of the clinical course of the patient DVT prophylaxis: Subcutaneous heparin GI Prophylaxis: Pepcid PT/OT: Pending Prognosis is guarded
[2019-09-14] MEDS: FAMOTIDINE 20 MG/2 ML VIAL IV SCH ×2 (08:46→19:57)
[2019-09-14] MEDS: METOPROLOL TARTRATE 25 MG TAB PO SCH (08:46)
[2019-09-14] MEDS: HEPARIN SODIUM,PORCINE 5,000 UNIT/ML 1 ML VIAL SQ SCH ×2 (08:46→19:57)
[2019-09-14] MEDS: FUROSEMIDE 10 MG/ML 4 ML VIAL IV SCH ×2 (08:46→19:57)
[2019-09-14] MEDS ORDERED: amLODIPine 5 MG TAB PO SCH (09:00)
--- NOTE | 2019-09-14 11:54 | MR ---
EXAMINATION TYPE: MR brain wo con DATE OF EXAM: 09/14/2019 COMPARISON: CT brain from yesterday. HISTORY: Possible TIA versus CVA, abnormal CT head. Acute onset slurred speech yesterday. TECHNIQUE: Multiplanar, multisequence imaging of the brain and brainstem is performed without IV cont rast. FINDINGS: Diffusion weighted images demonstrate no evidence of a recent infarct or other diffusion abnormality. There is no worrisome extra-axial fluid collection. Mild ventricular and sulcal prominence. Confluent areas of T2 hyperintensity seen throughout the deep and periventricular white matter. Area of old in farct left occipital lobe noted inferiorly. Smaller lacunar infarcts right head of caudate nucleus an d johnson radiata noted axial image 17. Midline structures demonstrate normal morphology. The craniocervical junction appears within normal limits. Normal vascular flow voids are present. Small mucous retention cyst or polyp posterior inferi or right maxillary sinus axial image 3. Remainder paranasal sinuses are clear. Globes are intact bila terally. IMPRESSION: 1. No evidence of a recent infarct. 2. Mild diffuse cerebral atrophy with advanced chronic small vessel ischemic change along with old le ft occipital lobe infarct and smaller scattered lacunar infarcts.
[2019-09-14] MEDS ORDERED: METOPROLOL TARTRATE 50 MG TAB PO STA (12:22)
[2019-09-14] MEDS: SODIUM CHLORIDE 0.9% 1,000 ML IV SCH (13:17)
[2019-09-14] MEDS: hydrALAZINE HCL 50 MG TAB PO SCH ×3 (13:17→22:39)
[2019-09-14] MEDS: SACUBITRIL/VALSARTAN 49 MG-51 MG TABLET PO SCH ×2 (13:23→22:36)
[2019-09-14] MEDS ORDERED: ASPIRIN 325 MG TAB PO SCH (14:31)
--- NOTE | 2019-09-14 14:34 | P.CRDCN ---
History of Present Illness Consult date: 09/14/19 Reason for Consult (text): hypertensive urgency Consult reason: hypertension Chief complaint: hypertensive urgency History of present illness: HISTORY OF PRESENT ILLNESS AND PLAN: This is a 69-year-old female with history of sickle cell anemia, hypertension, CHF, hyperlipidemia, smoking and declining memory. Patient presented to ER on 09/13/19 for complaints of cough and congestion. Patient was accompanied by her son in the ER who also states patient had a mild episode of confusion and slurred speech which resolved quickly. Cardiology being consulted for hypertensive urgency. BP 233/138 and 181/89. patient currently lying in bed in no acute distress but remains pleasantly confused. Patient has no current complaints of chest pain, chest pressure, shortness of breath or palpitations. When asked where the patient lives she cannot currently recall but knows it is with her son. Patient cannot recall the city that she recently moved from either. Patient's currently sinus rhythm on monitors heart rate 80s. Troponins negative 1. Most recent echo shows global decrease in LV function EF 20-25%. No focal weakness with neurology exam. SIGNIFICANT PAST MEDICAL HISTORY: PAST SURGICAL HISTORY: sickle cell anemia, hypertension, CHF, hyperlipidemia, smoking and declining memory. See list. EKG = sinus rhythm with PVCs, heart rate 80. Troponins negative x 2 SIGNIFICANT LABORATORY VALUES: Chest x-ray 09/13/19 = significant for pulmonary hypertension CT of head 09/13/19 = White matter changes. Chronic small vessel changes. focal chronic infarct left occipital lobe. Most recent echo = EF 20-25%, moderate concentric LVH. Severe global hypokinesis of LV. RV mildly enlarged. LA severely dilated. Mild AR. Moderate MR. Moderate TR. Severe pulmonary hypertension. Moderate HI. REVIEW OF SYSTEMS: CONSTITUTIONAL: Denies fever. Denies chills. EYES: Denies blurred vision. Denies blurred vision or vision changes. Denies eye pain. EARS, NOSE, MOUTH & THROAT: Denies headache. Denies sore throat. Denies ear pain Denies hemoptysis. CARDIOVASCULAR: Denies chest pain. Denies shortness of breath. Denies orthopnea. Denies PND. Denies palpitations. RESPIRATORY: Complains of cough. Denies shortness of breath. GASTROINTESTINAL: Denies abdominal pain or distention. Denies diarrhea. Denies constipation. Denies nausea. Denies vomiting. MUSCULOSKELETAL: Denies myalgias. INTEGUMENTARY: Denies pruitis. Denies rash. ENDOCRINE: Complains of fatigue. Denies weight change. Denies polydipsia. Denies polyurina Denies heat/cold intolerance. GENITOURINARY: Denies burning, hematuria or urgency with micturation. HEMATOLOGIC: Denies history of anemia. Denies bleeding. NEUROLOGIC: Denies numbness. Denies tingling. Denies weakness. PSYCHIATRIC: Denies anxiety. Denies depression. PHYSICAL EXAM: VITAL SIGNS: 145/77, HR 75. Afebrile. 97% on RA. GENERAL: Well developed, in no acute distress. HEENT: Head is atraumatic, normocephalic. Pupils are equal, round. Extra ocular movements intact. Mucous membranes moist. Neck supple. No JVD. No carotid bruit. No thyromegaly. LUNGS: Bilateral wheeze. No rales or rhonchi. No chest wall tenderness on palpation or with deep breathing. HEART: Regular rate and rhythm, no rubs or gallops. S1 and S2 heard. No murmur. ABDOMEN: Abdominal exam, WNL. Bowel sounds x4 quads. Soft, non-tender, without masses, organomegaly, or abdominal aorta enlargement. EXTREMITIES/VASCULAR: Extremities have easily palpable radial, femoral, dorsalis pedis and posterior tibial pulses. No cyanosis, calf tenderness. No BLE edema. NEUROLOGIC: Patient is awake, alert and oriented x1. No focal neurologic abnormalities. FINAL IMPRESSION: 1. Hypertensive urgency 2. Acute on chronic systolic HF with reduced EF at 20-25% 3. Sickle cell anemia 4. Acute UTI 5. Old occipital infarct with white matter changes and small vessel changes PLAN: Resume Entresto 49/51 mg one tablet twice daily. Reduce ASA to 81 mg daily. Discontinue amlodipine. START Hydralazine 50 mg every 8 hours. Increase Metoprolol tartrate to 50 mg twice daily. Continue same all other medical/medication regime. Hearth healthy diet. Awaiting MRI of head. Nurse Practitioner note has been reviewed by the Physician. Signing provider agrees with the documented findings, assessment and plan of care. Past Medical History Past Medical History: Heart Failure, Hyperlipidemia, Hypertension Additional Past Medical History / Comment(s): Sickle cell anemia, pt states she thinks she may have had a prior TIA History of Any Multi-Drug Resistant Organisms: None Reported Past Surgical History: Tubal Ligation Past Anesthesia/Blood Transfusion Reactions: No Reported Reaction Smoking Status: Current every day smoker Past Alcohol Use History: Occasional Past Drug Use History: None Reported - Past Family History Father Family Medical History: No Reported History Additional Family Medical History / Comment(s): Father was healthy Mother Family Medical History: Hypertension Medications and Allergies Home Medications Medication Instructions Recorded Confirmed Type Atorvastatin [Lipitor] 40 mg PO DAILY 09/13/19 09/13/19 History Carvedilol [Coreg] 25 mg PO BID 09/13/19 09/13/19 History Furosemide [Lasix] 40 mg PO BID 09/13/19 09/13/19 History Isosorbide Mononitrate ER [Imdur] 30 mg PO DAILY 09/13/19 09/13/19 History Sacubitril/Valsartan [Entresto 97 1 tab PO BID 09/13/19 09/13/19 History mg-103 mg Tablet] Spironolactone [Aldactone] 25 mg PO DAILY 09/13/19 09/13/19 History hydrALAZINE HCL [Apresoline] 25 mg PO BID 09/13/19 09/13/19 History Allergies Allergy/AdvReac Type Severity Reaction Status Date / Time No Known Allergies Allergy Verified 09/13/19 14:12 Physical Exam Vitals: Vital Signs Temp Pulse Pulse Resp BP BP Pulse Ox 09/14/19 12:00 97.6 F 64 18 196/98 95 09/14/19 08:43 98.3 F 68 18 181/89 91 L 09/14/19 03:48 98 F 75 18 145/77 97 09/13/19 23:57 72 18 152/85 96 09/13/19 20:00 97.8 F 71 18 166/94 95 09/13/19 18:12 97.6 F 71 20 161/90 94 L 09/13/19 17:21 178/109 09/13/19 17:05 195/114 09/13/19 16:19 62 19 166/88 98 09/13/19 14:45 180/126 Intake and Output 09/13/19 09/14/19 09/14/19 22:59 06:59 14:59 Intake Total 120 Balance 120 Intake: Oral 120 Other: # Voids 1 Weight 61.462 kg 54.6 kg Results 09/14/19 05:45 09/14/19 05:45 Cardiac Enzymes 09/14/19 09/14/19 09/14/19 Range/Units 05:45 05:45 12:16 AST 47 H (14-36) U/L Troponin I 0.032 0.030 (0.000-0.034) ng/mL Lipids 09/14/19 Range/Units 05:45 Triglycerides 76 (<150) mg/dL Cholesterol 102 (<200) mg/dL HDL Cholesterol 48 (40-60) mg/dL CBC 09/14/19 Range/Units 05:45 WBC 4.8 (3.8-10.6) k/uL RBC 4.25 (3.80-5.40) m/uL Hgb 11.7 (11.4-16.0) gm/dL Hct 34.7 (34.0-46.0) % Plt Count 153 (150-450) k/uL Comprehensive Metabolic Panel 09/14/19 Range/Units 05:45 Sodium 139 (137-145) mmol/L Potassium 3.1 L (3.5-5.1) mmol/L Chloride 102 (98-107) mmol/L Carbon Dioxide 28 (22-30) mmol/L BUN 20 H (7-17) mg/dL Creatinine 0.89 (0.52-1.04) mg/dL Glucose 107 H (74-99) mg/dL Calcium 9.3 (8.4-10.2) mg/dL Unconjugated Bilirubin 1.1 (0.0-1.1) mg/dL AST 47 H (14-36) U/L ALT 55 H (4-34) U/L Alkaline Phosphatase 138 H (38-126) U/L Total Protein 7.4 (6.3-8.2) g/dL Albumin 3.9 (3.5-5.0) g/dL Current Medications Generic Name Dose Route Start Last Admin Trade Name Freq PRN Reason Stop Dose Admin Aspirin 81 mg 09/15/19 09:00 Aspirin PO DAILY [facility]I Famotidine 20 mg 09/13/19 21:00 09/14/19 08:46 Pepcid IV 20 mg Q12HR [facility] Administration Furosemide 40 mg 09/13/19 21:00 09/14/19 08:46 Lasix IV 40 mg Q12HR [facility] Administration Heparin Sodium (Porcine) 5,000 unit 09/13/19 21:00 09/14/19 08:46 Heparin SQ 5,000 unit Q12HR [facility] Administration Hydralazine HCl 50 mg 09/14/19 12:30 09/14/19 13:17 Apresoline PO 50 mg TID [facility]I Administration Sodium Chloride 1,000 mls @ 20 mls/hr 09/13/19 14:30 09/14/19 13:17 Saline 0.9% IV 20 mls/hr .Q24H [facility] Administration Ceftriaxone Sodium 1 gm/ 50 mls @ 100 mls/hr 09/14/19 13:00 09/14/19 13:17 Sodium Chloride IVPB 100 mls/hr Q24H [facility] Administration Labetalol HCl 10 mg 09/13/19 14:29 Trandate IVP Q1HR PRN Hypertension Metoprolol Tartrate 50 mg 09/14/19 21:00 Lopressor PO BID [facility]I Sacubitril/Valsartan 1 each 09/14/19 12:30 09/14/19 13:23 Entresto 49 Mg-51 Mg Tablet PO 1 each BID [facility]I Administration Intake and Output 09/13/19 09/14/19 09/14/19 22:59 06:59 14:59 Intake Total 120 Balance 120 Intake: Oral 120 Other: # Voids 1 Weight 61.462 kg 54.6 kg 09/14/19 05:45 09/14/19 05:45
--- NOTE | 2019-09-14 15:38 | US ---
EXAMINATION TYPE: US liver DATE OF EXAM: 09/14/2019 COMPARISON: NONE CLINICAL HISTORY: elevated Liver enz and mild epig discomfort . Elevated liver enzymes. EXAM MEASUREMENTS: Liver Length: 17.2 cm Gallbladder Wall: .3 cm CBD: .2 cm Right Kidney: 10.3 x 3.9 x 5.9 cm Pancreas: wnl Liver: wnl Gallbladder: Multiple stones seen. Evidence for sonographic Finch's sign: No CBD: wnl Right Kidney: wnl Pleural effusion visualized. IMPRESSION: There are numerous gallstones. No dilated ducts. No focal liver defect.
[2019-09-14] MEDS: METOPROLOL TARTRATE 50 MG TAB PO SCH (19:56)
[2019-09-14] MEDS ORDERED: Potassium Replacement Protocol 1 EACH MISC MISCELLANE PRN (20:14)
[2019-09-15 07:38] LABS: Albumin 3.7 g/dL (3.5-5.0); Bilirubin, Delta 0.6 mg/dL (0.0-0.2); Bilirubin,Unconjugated 0.8 mg/dL (0.0-1.1); Calcium 9.4 mg/dL (8.4-10.2); Magnesium 1.6 mg/dL (1.6-2.3); Potassium 3.3 mmol/L (3.5-5.1); Total Bilirubin 1.4 mg/dL (0.2-1.3)
[2019-09-15 07:56] LABS: Basophils % (A) 1 %; Eosinophils # (A) 0.2 k/uL (0-0.7); Eosinophils % (A) 4 %; HCT 44.1 % (34.0-46.0); Lymphocytes # (A) 1.6 k/uL (1.0-4.8); Lymphocytes % (A) 26 %; MCH 27.7 pg (25.0-35.0); MCHC 33.7 g/dL (31.0-37.0); MCV 82.4 fL (80.0-100.0); Mean Platelet Volume 11.5; Monocytes # (A) 0.4 k/uL (0-1.0); Monocytes % (A) 7 %; Neutrophils # (A) 3.5 k/uL (1.3-7.7); Neutrophils % (A) 58 %; Platelet Count 199 k/uL (150-450); RBC 5.36 m/uL (3.80-5.40); RDW 14.3 % (11.5-15.5)
[2019-09-15 08:22] LABS: HGB 14.9 gm/dL (11.4-16.0)
[2019-09-15] MEDS: FAMOTIDINE 20 MG/2 ML VIAL IV SCH ×2 (09:23→20:31)
[2019-09-15] MEDS: HEPARIN SODIUM,PORCINE 5,000 UNIT/ML 1 ML VIAL SQ SCH ×2 (09:24→20:25)
[2019-09-15] MEDS: hydrALAZINE HCL 50 MG TAB PO SCH (09:24)
[2019-09-15] MEDS: POTASSIUM CHLORIDE ER 20 MEQ TAB.ER PO SCH (09:24)
[2019-09-15] MEDS: METOPROLOL TARTRATE 50 MG TAB PO SCH ×2 (09:24→20:31)
[2019-09-15] MEDS: FUROSEMIDE 10 MG/ML 4 ML VIAL IV SCH ×2 (09:24→20:31)
[2019-09-15] MEDS: SACUBITRIL/VALSARTAN 49 MG-51 MG TABLET PO SCH ×2 (09:24→20:32)
[2019-09-15] MEDS: ASPIRIN 81 MG PO SCH (09:24)
[2019-09-15] MEDS ORDERED: SODIUM CHLORIDE 0.9% 500 ML 500 ML IV ONE (09:50)
--- NOTE | 2019-09-15 09:52 | P.PN ---
Subjective This is a pleasant 69 years old -[place]ian female with past medical history of congestive heart failure, hypertension, hyperlipidemia, every day cigarette smoker. Presents because of slurred/slow speech. Her speech abdominal tube was noticed by her son and ask her to come to emergency room. Patient is not very good historian. She denies headache, no weakness or abnormal sensation in limbs. No blurred vision, no swallowing difficulty. Patient also complained from orthopnea but no paroxysmal nocturnal dyspnea. She has some epigastric discomfort earlier this morning but no chest pain. Patient denies specific urinary symptoms, no diarrhea. No fever. No back pain. Patient is slow to respond, she has some memory problems, she says that she is not from the area and she was visiting her siblings the stay in [place] however she could not tell me what exactly she came in from as she forgot but she states she is from [place]. Patient was sitting on the chair, resting comfortably not in distress. On admission patient blood pressure was significantly elevated at 233/138 , she received several doses of IV labetalol, her blood pressure went down to 180/126, her speech is back to normal now. She denies any other symptoms currently. No chest pain or epigastric discomfort or urinary symptoms On admission Vitas looks stable however blood pressure was on the high side at 233/138, labs including CBC, INR, BMP are unremarkable with normal creatinine 0.87, potassium was 3.4. Lactic acid not elevated 1.2, bilirubin is 1.8, AST 55, ALT 71, proBNP is elevated at 9500, urinalysis is suspicious for infection. Chest x-ray showing pulmonary edema. CT of the present: No acute process like hemorrhage or mass effect. However there is severe chronic small vessel ischemic changes and there is chronic left occipital infarct In the emergency room patient got ceftriaxone, Lasix 40 mg IV once, labetalol 10 mg, nitroglycerin, and 1 dose of potassium chloride 09/14/2019 Patient awake and oriented. Her speech is better today, close to normal, and she responds better than yesterday when her response was slow. No weakness or numbness. She is breathing fine with no dyspnea. No chest pain. She has some epigastric discomfort earlier which is resolved now. No urinary dysuria however she has hesitancy. She's been more frequent probably from her Lasix. Also she has bilateral leg edema. Vitals are stable and her blood pressure significantly improved, this morning is 145/77 and heart rate is 75. She remains on Norvasc and metoprolol 25 mg twice daily. Also she is on Lasix 40 mg IV twice daily. She is on Rocephin for her UTI. Potassium 3.1, liver enzymes monthly trending down, but opened 1.7 compared to 1.8. We will order for ultrasound. Lactic acid is normal at 1.2. Rest of the CBC is unremarkable. Echocardiogram showing ejection fraction of 20-25% with moderate M Donaldo regurgitation, tricuspid regurgitation and pulmonary valve regurgitation. Patient with severe pulmonary hypertension Also this morning patient told me last week she was with her son in [place] for 2 weeks, although she lives with her son and daughter here in [place], [place] 09/15/2019 Patient awake with no dyspnea, no more epigastric discomfort or pain. She still have some cough. And her urine hesitancy has resolved and is back to her usual state. Vitals are stable. Liver ultrasound showed gallstones with no cayetano cystitis. Brain MRI showing no recent infarct. Her blood pressure medication were adjusted by manuscripts archivist. Her blood pressure is 100/65 today. this morning showed potassium 3.3, creatinine went up to 1.3, right lower the dose of hydralazine because of that from 50 down to 25 mg 3 times a day, and we will give small bolus of NS. Also check bladder scan. Her troponin was slightly elevated at 0.046. Urine culture showing gram-negative bacilli and firm result is pending. Objective - Vital Signs Vital signs: Vital Signs Temp 97.6 F 09/15/19 06:20 Pulse 65 09/15/19 06:20 Resp 18 09/15/19 06:20 BP 100/65 09/15/19 06:20 Pulse Ox 96 09/15/19 06:20 Intake & Output 09/14/19 09/15/19 09/15/19 18:59 06:59 18:59 Intake Total 240 Balance 240 Intake: Oral 240 Other: # Voids 3 1 - Exam GENERAL: The patient is alert and oriented x3, not in any acute distress. Well developed, well nourished. HEENT: Pupils are round and equally reacting to light. EOMI. No scleral icterus. No conjunctival pallor. Normocephalic, atraumatic. No pharyngeal erythema. No thyromegaly. CARDIOVASCULAR: S1 and S2 present. No murmurs, rubs, or gallops. PULMONARY: Chest is clear to auscultation, no crepitation or wheezing ABDOMEN: Soft, nontender, nondistended, normoactive bowel sounds. No palpable organomegaly. MUSCULOSKELETAL: No joint swelling or deformity. -EXTREMITIES: No cyanosis, clubbing,. Bilateral pitting leg edema. NEUROLOGICAL: Gross neurological examination did not reveal any focal deficits. SKIN: No rashes. No petechiae - Labs CBC & Chem 7: 09/15/19 06:11 09/15/19 06:11 Labs: Abnormal Lab Results - Last 24 Hours (Table) 09/14/19 09/15/19 Range/Units 17:48 06:11 Potassium 3.3 L (3.5-5.1) mmol/L BUN 26 H (7-17) mg/dL Creatinine 1.30 H (0.52-1.04) mg/dL Glucose 103 H (74-99) mg/dL Total Bilirubin 1.4 H (0.2-1.3) mg/dL Delta Bilirubin 0.6 H (0.0-0.2) mg/dL AST 39 H (14-36) U/L ALT 44 H (4-34) U/L Alkaline Phosphatase 144 H (38-126) U/L Troponin I 0.046 H* (0.000-0.034) ng/mL Microbiology - Last 24 Hours (Table) 09/13/19 12:36 Urine Culture - Preliminary Urine,Clean Catch Gram Neg Bacilli 09/13/19 12:31 Blood Culture - Preliminary Blood No Growth after 24 hours Assessment and Plan Assessment: Hypertensive urgency , markedly improved Acute on systolic chronic congestive heart failure, ejection fraction 20-25% Acute urinary tract infection Elevated liver enzymes Heart valvular disease, moderate mitral regurgitation, tricuspid regurgitation and pulmonary valve regurgitation severe pulmonary hypertension old OCCIPITAL infarct with severe small vessel ischemic changes of the brain Plan: This is a pleasant 69 years old female who presents with hypertensive urgency, CHF, UTI. Continue with antihypertensive and follow-up blood pressure closely, continue with Lasix intravenously, monitored input and output. Follow-up cardiology recommendation Continue with ceftriaxone FOLLOW-UP URINE CULTURE. Labs and medication were reviewed.. Continue same treatment. Continue with symptomatic treatment. Resume home medication. Monitor lytes and vitals. DVT and GI prophylaxis. Further recommendations of the clinical course of the patient DVT prophylaxis: Subcutaneous heparin GI Prophylaxis: Pepcid PT/OT: Pending Prognosis is guarded
[2019-09-15] MEDS: SODIUM CHLORIDE 0.9% 1,000 ML IV SCH (14:16)
--- NOTE | 2019-09-15 15:15 | PN ---
PROGRESS NOTE Mrs. Camara is doing well. Blood pressure control is optimal. Potassium is somewhat low. We will supplement the potassium. Vitals are stable. No JVD. S1-S2 heard normally. Short systolic murmur noted. Lungs are clear. Abdomen and lower extremity exam unchanged. Plan is to continue current medical regimen, increase activity and she can be discharged whenever okay with the admitting doctor. [email or web address] / BRITTNEEN: [id number] /
[2019-09-15] MEDS: hydrALAZINE HCL 25 MG TAB PO SCH ×2 (16:03→20:31)
[2019-09-16] MEDS ORDERED: POTASSIUM CHLORIDE ER 20 MEQ TAB.ER PO SCH (09:00)
[2019-09-16] MEDS: ASPIRIN 81 MG PO SCH (09:11)
[2019-09-16] MEDS: HEPARIN SODIUM,PORCINE 5,000 UNIT/ML 1 ML VIAL SQ SCH ×3 (09:11→22:44)
[2019-09-16] MEDS: hydrALAZINE HCL 25 MG TAB PO SCH ×3 (09:11→22:34)
[2019-09-16] MEDS: FAMOTIDINE 20 MG/2 ML VIAL IV SCH (09:11)
[2019-09-16] MEDS: FUROSEMIDE 10 MG/ML 4 ML VIAL IV SCH (09:11)
[2019-09-16] MEDS: METOPROLOL TARTRATE 50 MG TAB PO SCH ×2 (09:11→22:35)
[2019-09-16] MEDS: SACUBITRIL/VALSARTAN 49 MG-51 MG TABLET PO SCH ×2 (09:11→22:34)
[2019-09-16 10:54] LABS: Calcium 9.4 mg/dL (8.4-10.2); Magnesium 1.7 mg/dL (1.6-2.3); Potassium 2.8 mmol/L (3.5-5.1)
[2019-09-16] MEDS ORDERED: Magnesium Replacement Protocol 1 EACH MISC MISCELLANE PRN (11:50)
[2019-09-16] MEDS ORDERED: Potassium Replacement Protocol 1 EACH MISC MISCELLANE PRN (11:50)
[2019-09-16] MEDS: POTASSIUM CHLORIDE ER 20 MEQ TAB.ER PO SCH ×3 (12:12→15:08)
--- NOTE | 2019-09-16 12:38 | P.NPCON ---
History of Present Illness - Reason for Consult acute renal failure - History of Present Illness Reason for consultation: Acute kidney injury History of present illness: Patient is a 69-year-old female seen in renal consultation for acute kidney injury. Patient denies any prior history of kidney disease. Her creatinine on admission was 0.87. It is up to 1.42 today. Patient's initial chest x-ray was suggestive of vascular congestion and interstitial edema. She is currently maintained on IV Lasix 40 mg twice daily. Patient's echocardiogram revealed ejection fraction of 20-25% with moderate mitral, pulmonic and tricuspid regurgitation. She is also noted to have severe pulmonary hypertension. She denies any chest pain or shortness of breath at this time. She does admit to a cough with clear sputum. She denies history of diabetes. Denies regular use of nonsteroidals. Denies family history of renal disease. She admits to good urine output. Denies any hematuria or dysuria. Oral intake is fair. She did have an episode of vomiting yesterday but none since. Patient's potassium level is 2.8 today. This is being replaced. No other complaints at this time. Hemodynamically stable. Vital signs are stable. General: The patient appeared well nourished and normally developed. HEENT: Head exam is unremarkable. Neck is without jugular venous distension. LUNGS: Lungs are clear to auscultation and percussion. Breath sounds decreased. HEART: Rate and Rhythm are regular. First and second heart sounds normal. No murmurs, rubs or gallops. ABDOMEN: Abdominal exam reveals normal bowel sounds. Non-tender and non- distended. No evidence of peritonitis. EXTREMITITES: No clubbing, cyanosis, or edema. Past Medical History Past Medical History: Heart Failure, Hyperlipidemia, Hypertension Additional Past Medical History / Comment(s): Sickle cell anemia, pt states she thinks she may have had a prior TIA History of Any Multi-Drug Resistant Organisms: None Reported Past Surgical History: Tubal Ligation Past Anesthesia/Blood Transfusion Reactions: No Reported Reaction Smoking Status: Current every day smoker Past Alcohol Use History: Occasional Past Drug Use History: None Reported - Past Family History Father Family Medical History: No Reported History Additional Family Medical History / Comment(s): Father was healthy Mother Family Medical History: Hypertension Medications and Allergies Home Medications Medication Instructions Recorded Confirmed Type Atorvastatin [Lipitor] 40 mg PO DAILY 09/13/19 09/13/19 History Carvedilol [Coreg] 25 mg PO BID 09/13/19 09/13/19 History Furosemide [Lasix] 40 mg PO BID 09/13/19 09/13/19 History Isosorbide Mononitrate ER [Imdur] 30 mg PO DAILY 09/13/19 09/13/19 History Sacubitril/Valsartan [Entresto 97 1 tab PO BID 09/13/19 09/13/19 History mg-103 mg Tablet] Spironolactone [Aldactone] 25 mg PO DAILY 09/13/19 09/13/19 History hydrALAZINE HCL [Apresoline] 25 mg PO BID 09/13/19 09/13/19 History Allergies Allergy/AdvReac Type Severity Reaction Status Date / Time No Known Allergies Allergy Verified 09/13/19 14:12 Physical Exam Vitals: Vital Signs Temp Pulse Resp BP Pulse Ox 09/16/19 09:00 98 F 65 18 132/91 99 09/15/19 22:00 98.6 F 76 16 151/72 100 09/15/19 15:00 97.6 F 63 18 121/64 97 Intake and Output 09/15/19 09/16/19 09/16/19 22:59 06:59 14:59 Intake Total 90 360 Balance 90 360 Intake: Oral 90 360 Other: # Voids 1 1 Weight 54.3 kg Results - Lab Results Most recent lab results Calcium 9.4 mg/dL (8.4-10.2) 09/16/19 09:57 Magnesium 1.7 mg/dL (1.6-2.3) 09/16/19 09:57 09/15/19 06:11 09/16/19 09:57 Assessment and Plan Plan: Assessment: 1. Acute kidney injury mostly prerenal secondary to cardiorenal syndrome. Creatinine 1.42 today. 2. Acute systolic CHF with ejection fraction of 20-25% with moderate mitral, tricuspid and pulmonic regurgitation. 3. Severe pulmonary hypertension. 4. Volume overload. Improving with diuresis. 5. Hypokalemia secondary to diuresis. 6. Mild hypomagnesemia secondary to diuresis. 7. UTI with urine culture positive for E. coli maintained on antibiotics. Plan: Change Lasix to 40 mg orally twice daily. Potassium and magnesium being replaced. Repeat electrolytes in the morning. Low-salt diet. Thank you for the consultation. I will continue to follow the patient with you during her hospital stay.
--- NOTE | 2019-09-16 13:14 | P.PN ---
Subjective Progress Note Date: 09/16/19 this is a 69-year-old -[place] female with history of sickle cell anemia, hypertension, hyperlipidemianicotine dependence, declining memory, who presented to the hospital with symptoms of cough and congestion, she's having some mild confusion and slurring of speech as well. Cardiology consultation was initially requested because of hypertensive urgency. She was seen and examined this morning, walking around her room, had no complaints at all. Blood pressure under much better control, 130/90 today. Objective - Vital Signs Vital signs: Vital Signs Temp 98 F 09/16/19 09:00 Pulse 65 09/16/19 09:00 Resp 18 09/16/19 09:00 BP 132/91 09/16/19 09:00 Pulse Ox 99 09/16/19 09:00 Intake & Output 09/15/19 09/16/19 09/16/19 18:59 06:59 18:59 Intake Total 570 720 Output Total 780 Balance -210 720 Weight 54.3 kg Intake: Oral 570 720 Output: Urine 600 Post Void Residual 180 Other: # Voids 2 1 - Exam PHYSICAL EXAMINATION: GENERAL:69-year-old -[place] female in no acute distress at the time of my examination HEENT: Head is atraumatic, normocephalic. Pupils equal, round. Sclera anicteric. Conjunctiva are clear. Mucous membranes of the mouth are moist. Neck is supple. There is no elevated jugular venous pressure.] bruit is heard. HEART EXAMINATION: [Heart S1, S2 normal. No murmur or gallop heard.] CHEST EXAMINATION:[ Lungs reveal fine wheezing throughout.] ABDOMEN: [ Soft, nontender. Bowel sounds are heard. No organomegaly noted]. EXTREMITIES:[ 2+ peripheral pulses with no evidence of peripheral edema and no calf tenderness noted]. NEUROLOGIC [patient is awake, alert and oriented 3.] . - Labs CBC & Chem 7: 09/15/19 06:11 09/16/19 09:57 Labs: Abnormal Lab Results - Last 24 Hours (Table) 09/16/19 Range/Units 09:57 Potassium 2.8 L (3.5-5.1) mmol/L Carbon Dioxide 31 H (22-30) mmol/L BUN 24 H (7-17) mg/dL Creatinine 1.42 H (0.52-1.04) mg/dL Glucose 118 H (74-99) mg/dL Microbiology - Last 24 Hours (Table) 09/13/19 12:36 Urine Culture - Final Urine,Clean Catch Escherichia coli 09/13/19 12:31 Blood Culture - Preliminary Blood No Growth after 48 hours Assessment and Plan Plan: Assessment and plan 1. Hypertensive urgency 2. Acute on chronic systolic HF with reduced EF at 20-25% 3. Sickle cell anemia 4. Acute UTI 5. Old occipital infarct with white matter changes and small vessel changes Plan From cardiology's perspective, patient may be able to be discharged home.she has been advised to follow-up in the office post discharge. DNP note has been reviewed, I agree with a documented findings and plan of care. Patient was seen and examined.
[2019-09-16] MEDS: MAGNESIUM SULFATE-D5W PMX 1 GM in DEXTROSE/WATER 1 100ML.BAG IVPB SCH ×2 (13:25→15:08)
[2019-09-16 13:50] VITALS: BMI 23.3
[2019-09-16] MEDS: FUROSEMIDE 40 MG TAB PO SCH (17:20)
[2019-09-16] MEDS: SODIUM CHLORIDE 0.9% 1,000 ML IV SCH (18:18)
--- NOTE | 2019-09-17 00:02 | P.PN ---
Subjective This is a pleasant 69 years old -[place] female with past medical history of congestive heart failure, hypertension, hyperlipidemia, every day cigarette smoker. Presents because of slurred/slow speech. Her speech abdominal tube was noticed by her son and ask her to come to emergency room. Patient is not very good historian. She denies headache, no weakness or abnormal sensation in limbs. No blurred vision, no swallowing difficulty. Patient also complained from orthopnea but no paroxysmal nocturnal dyspnea. She has some epigastric discomfort earlier this morning but no chest pain. Patient denies specific urinary symptoms, no diarrhea. No fever. No back pain. Patient is slow to respond, she has some memory problems, she says that she is not from the area and she was visiting her siblings the stay in [place] however she could not tell me what exactly she came in from as she forgot but she states she is from [place]. Patient was sitting on the chair, resting comfortably not in distress. On admission patient blood pressure was significantly elevated at 233/138 , she received several doses of IV labetalol, her blood pressure went down to 180/126, her speech is back to normal now. She denies any other symptoms currently. No chest pain or epigastric discomfort or urinary symptoms On admission Vitas looks stable however blood pressure was on the high side at 233/138, labs including CBC, INR, BMP are unremarkable with normal creatinine 0.87, potassium was 3.4. Lactic acid not elevated 1.2, bilirubin is 1.8, AST 55, ALT 71, proBNP is elevated at 9500, urinalysis is suspicious for infection. Chest x-ray showing pulmonary edema. CT of the present: No acute process like hemorrhage or mass effect. However there is severe chronic small vessel ischemic changes and there is chronic left occipital infarct In the emergency room patient got ceftriaxone, Lasix 40 mg IV once, labetalol 10 mg, nitroglycerin, and 1 dose of potassium chloride 09/14/2019 Patient awake and oriented. Her speech is better today, close to normal, and she responds better than yesterday when her response was slow. No weakness or numbness. She is breathing fine with no dyspnea. No chest pain. She has some epigastric discomfort earlier which is resolved now. No urinary dysuria however she has hesitancy. She's been more frequent probably from her Lasix. Also she has bilateral leg edema. Vitals are stable and her blood pressure significantly improved, this morning is 145/77 and heart rate is 75. She remains on Norvasc and metoprolol 25 mg twice daily. Also she is on Lasix 40 mg IV twice daily. She is on Rocephin for her UTI. Potassium 3.1, liver enzymes monthly trending down, but opened 1.7 compared to 1.8. We will order for ultrasound. Lactic acid is normal at 1.2. Rest of the CBC is unremarkable. Echocardiogram showing ejection fraction of 20-25% with moderate M Donaldo regurgitation, tricuspid regurgitation and pulmonary valve regurgitation. Patient with severe pulmonary hypertension Also this morning patient told me last week she was with her son in [place] for 2 weeks, although she lives with her son and daughter here in [place], [place] 09/15/2019 Patient awake with no dyspnea, no more epigastric discomfort or pain. She still have some cough. And her urine hesitancy has resolved and is back to her usual state. Vitals are stable. Liver ultrasound showed gallstones with no cayetano cystitis. Brain MRI showing no recent infarct. Her blood pressure medication were adjusted by director education. Her blood pressure is 100/65 today. this morning showed potassium 3.3, creatinine went up to 1.3, right lower the dose of hydralazine because of that from 50 down to 25 mg 3 times a day, and we will give small bolus of NS. Also check bladder scan. Her troponin was slightly elevated at 0.046. Urine culture showing gram-negative bacilli and firm result is pending. pt was little confused in the morning and she needed a sitter , however by the time i saw her she is back to baseline, repeat labs shows worsening renal function , we will call nephrology consult and keep monitoring the pt while sitter at bed side. Objective - Vital Signs Vital signs: Vital Signs Temp 98 F 09/16/19 09:00 Pulse 65 09/16/19 09:00 Resp 18 09/16/19 09:00 BP 132/91 09/16/19 09:00 Pulse Ox 99 09/16/19 09:00 Intake & Output 09/15/19 09/16/19 09/16/19 18:59 06:59 18:59 Intake Total 570 360 Output Total 780 Balance -210 360 Weight 54.3 kg Intake: Oral 570 360 Output: Urine 600 Post Void Residual 180 Other: # Voids 2 1 - Exam GENERAL: The patient is alert and oriented x3, not in any acute distress. Well developed, well nourished. HEENT: Pupils are round and equally reacting to light. EOMI. No scleral icterus. No conjunctival pallor. Normocephalic, atraumatic. No pharyngeal erythema. No thyromegaly. CARDIOVASCULAR: S1 and S2 present. No murmurs, rubs, or gallops. PULMONARY: Chest is clear to auscultation, no crepitation or wheezing ABDOMEN: Soft, nontender, nondistended, normoactive bowel sounds. No palpable organomegaly. MUSCULOSKELETAL: No joint swelling or deformity. -EXTREMITIES: No cyanosis, clubbing,. Bilateral pitting leg edema. NEUROLOGICAL: Gross neurological examination did not reveal any focal deficits. SKIN: No rashes. No petechiae - Labs CBC & Chem 7: 09/15/19 06:11 09/16/19 16:00 Labs: Abnormal Lab Results - Last 24 Hours (Table) 09/16/19 Range/Units 09:57 Potassium 2.8 L (3.5-5.1) mmol/L Carbon Dioxide 31 H (22-30) mmol/L BUN 24 H (7-17) mg/dL Creatinine 1.42 H (0.52-1.04) mg/dL Glucose 118 H (74-99) mg/dL Microbiology - Last 24 Hours (Table) 09/13/19 12:36 Urine Culture - Final Urine,Clean Catch Escherichia coli 09/13/19 12:31 Blood Culture - Preliminary Blood No Growth after 48 hours Assessment and Plan Assessment: Hypertensive urgency , markedly improved Acute on systolic chronic congestive heart failure, ejection fraction 20-25% Acute urinary tract infection Elevated liver enzymes Heart valvular disease, moderate mitral regurgitation, tricuspid regurgitation and pulmonary valve regurgitation severe pulmonary hypertension old OCCIPITAL infarct with severe small vessel ischemic changes of the brain Plan: This is a pleasant 69 years old female who presents with hypertensive urgency, CHF, UTI. Continue with antihypertensive and follow-up blood pressure closely, continue with Lasix intravenously, monitored input and output. Follow-up cardiology recommendation Continue with ceftriaxone FOLLOW-UP URINE CULTURE. Labs and medication were reviewed.. Continue same treatment. Continue with symptomatic treatment. Resume home medication. Monitor lytes and vitals. DVT and GI prophylaxis. Further recommendations of the clinical course of the patient DVT prophylaxis: Subcutaneous heparin GI Prophylaxis: Pepcid PT/OT: Pending Prognosis is guarded
[2019-09-17 08:29] LABS: Calcium 9.3 mg/dL (8.4-10.2); Magnesium 2.1 mg/dL (1.6-2.3); Potassium 3.5 mmol/L (3.5-5.1)
[2019-09-17] MEDS: hydrALAZINE HCL 25 MG TAB PO SCH ×3 (09:47→20:39)
[2019-09-17] MEDS: METOPROLOL TARTRATE 50 MG TAB PO SCH (09:48)
[2019-09-17] MEDS: FUROSEMIDE 40 MG TAB PO SCH ×2 (09:48→17:15)
[2019-09-17] MEDS: FAMOTIDINE 20 MG TAB PO SCH (09:48)
[2019-09-17] MEDS: HEPARIN SODIUM,PORCINE 5,000 UNIT/ML 1 ML VIAL SQ SCH ×2 (09:48→20:39)
[2019-09-17] MEDS: ASPIRIN 81 MG PO SCH (09:48)
[2019-09-17] MEDS: SACUBITRIL/VALSARTAN 49 MG-51 MG TABLET PO SCH ×2 (09:48→20:39)
--- NOTE | 2019-09-17 13:47 | P.PN ---
Subjective Progress Note Date: 09/17/19 Follow-up for acute kidney injury. Objective - Vital Signs Vital signs: Vital Signs Temp 98.4 F 09/17/19 11:44 Pulse 58 L 09/17/19 11:44 Resp 18 09/17/19 11:44 BP 152/55 09/17/19 11:44 Pulse Ox 97 09/17/19 11:44 Intake & Output 09/16/19 09/17/19 09/17/19 18:59 06:59 18:59 Intake Total 820 480 Balance 820 480 Weight 54.3 kg Intake: Intake, IV Titration 100 Amount cefTRIAXone 1 gm In 100 Sodium Chloride 0.9% 50 ml @ 100 mls/hr IVPB Q24H [facility] Rx#:[id number] Oral 720 480 Other: Voiding Method Toilet Toilet # Voids 2 2 - Exam No acute distress S1-S2 heard Decreased breath sounds bases Trace edema - Labs CBC & Chem 7: 09/15/19 06:11 09/17/19 07:53 Labs: Abnormal Lab Results - Last 24 Hours (Table) 09/17/19 Range/Units 07:53 Carbon Dioxide 31 H (22-30) mmol/L BUN 20 H (7-17) mg/dL Creatinine 1.34 H (0.52-1.04) mg/dL Glucose 106 H (74-99) mg/dL Microbiology - Last 24 Hours (Table) 09/13/19 12:31 Blood Culture - Preliminary Blood No Growth after 72 hours Assessment and Plan Assessment: #1 acute kidney injury secondary to type and cardiorenal syndrome #2 systolic CHF with EF of 20-25% #3 severe pulmonary hypertension #4 volume overload improving with diuresis #5 electrolyte abnormality secondary to diuretics #6 UTI with E. coli Plan: #1 renal function stable and improving #2 continue with diuretics and cardiac care. #3 avoid nephrotoxic agents and hypotensive episodes
--- NOTE | 2019-09-17 15:40 | P.PN ---
Subjective This is a pleasant 69 years old -[place] female with past medical history of congestive heart failure, hypertension, hyperlipidemia, every day cigarette smoker. Presents because of slurred/slow speech. Her speech abdominal tube was noticed by her son and ask her to come to emergency room. Patient is not very good historian. She denies headache, no weakness or abnormal sensation in limbs. No blurred vision, no swallowing difficulty. Patient also complained from orthopnea but no paroxysmal nocturnal dyspnea. She has some epigastric discomfort earlier this morning but no chest pain. Patient denies specific urinary symptoms, no diarrhea. No fever. No back pain. Patient is slow to respond, she has some memory problems, she says that she is not from the area and she was visiting her siblings the stay in [place] however she could not tell me what exactly she came in from as she forgot but she states she is from [place]. Patient was sitting on the chair, resting comfortably not in distress. On admission patient blood pressure was significantly elevated at 233/138 , she received several doses of IV labetalol, her blood pressure went down to 180/126, her speech is back to normal now. She denies any other symptoms currently. No chest pain or epigastric discomfort or urinary symptoms On admission Vitas looks stable however blood pressure was on the high side at 233/138, labs including CBC, INR, BMP are unremarkable with normal creatinine 0.87, potassium was 3.4. Lactic acid not elevated 1.2, bilirubin is 1.8, AST 55, ALT 71, proBNP is elevated at 9500, urinalysis is suspicious for infection. Chest x-ray showing pulmonary edema. CT of the present: No acute process like hemorrhage or mass effect. However there is severe chronic small vessel ischemic changes and there is chronic left occipital infarct In the emergency room patient got ceftriaxone, Lasix 40 mg IV once, labetalol 10 mg, nitroglycerin, and 1 dose of potassium chloride 09/14/2019 Patient awake and oriented. Her speech is better today, close to normal, and she responds better than yesterday when her response was slow. No weakness or numbness. She is breathing fine with no dyspnea. No chest pain. She has some epigastric discomfort earlier which is resolved now. No urinary dysuria however she has hesitancy. She's been more frequent probably from her Lasix. Also she has bilateral leg edema. Vitals are stable and her blood pressure significantly improved, this morning is 145/77 and heart rate is 75. She remains on Norvasc and metoprolol 25 mg twice daily. Also she is on Lasix 40 mg IV twice daily. She is on Rocephin for her UTI. Potassium 3.1, liver enzymes monthly trending down, but opened 1.7 compared to 1.8. We will order for ultrasound. Lactic acid is normal at 1.2. Rest of the CBC is unremarkable. Echocardiogram showing ejection fraction of 20-25% with moderate M Donaldo regurgitation, tricuspid regurgitation and pulmonary valve regurgitation. Patient with severe pulmonary hypertension Also this morning patient told me last week she was with her son in [place] for 2 weeks, although she lives with her son and daughter here in [place], [place] 09/15/2019 Patient awake with no dyspnea, no more epigastric discomfort or pain. She still have some cough. And her urine hesitancy has resolved and is back to her usual state. Vitals are stable. Liver ultrasound showed gallstones with no cayetano cystitis. Brain MRI showing no recent infarct. Her blood pressure medication were adjusted by sas etl developer. Her blood pressure is 100/65 today. this morning showed potassium 3.3, creatinine went up to 1.3, right lower the dose of hydralazine because of that from 50 down to 25 mg 3 times a day, and we will give small bolus of NS. Also check bladder scan. Her troponin was slightly elevated at 0.046. Urine culture showing gram-negative bacilli and firm result is pending. 09/16/2019 pt was little confused in the morning and she needed a sitter , however by the time i saw her she is back to baseline, repeat labs shows worsening renal function , we will call nephrology consult and keep monitoring the pt while sitter at bed side. 09/17/2019 When I saw the patient she was calm,and make appropriate conversation, however as per staff systolic of confusion at times. Still been followed closely by beef trimmer for elevated creatinine however is creatinine is starts improving slightly today from 1.4 down to 1.3. Patient still pending neurologist and beef trimmer clearance prior to discharge. Patient is hemodynamically stable Objective - Vital Signs Vital signs: Vital Signs Temp 98.4 F 09/17/19 11:44 Pulse 58 L 09/17/19 11:44 Resp 18 09/17/19 11:44 BP 152/55 09/17/19 11:44 Pulse Ox 97 09/17/19 11:44 Intake & Output 09/16/19 09/17/19 09/17/19 18:59 06:59 18:59 Intake Total 820 480 Balance 820 480 Weight 54.3 kg Intake: Intake, IV Titration 100 Amount cefTRIAXone 1 gm In 100 Sodium Chloride 0.9% 50 ml @ 100 mls/hr IVPB Q24H [facility] Rx#:[id number] Oral 720 480 Other: Voiding Method Toilet Toilet # Voids 2 2 - Exam GENERAL: The patient is alert and oriented x3, not in any acute distress. Well developed, well nourished. HEENT: Pupils are round and equally reacting to light. EOMI. No scleral icterus. No conjunctival pallor. Normocephalic, atraumatic. No pharyngeal erythema. No thyromegaly. CARDIOVASCULAR: S1 and S2 present. No murmurs, rubs, or gallops. PULMONARY: Chest is clear to auscultation, no crepitation or wheezing ABDOMEN: Soft, nontender, nondistended, normoactive bowel sounds. No palpable organomegaly. MUSCULOSKELETAL: No joint swelling or deformity. -EXTREMITIES: No cyanosis, clubbing,. Bilateral pitting leg edema. NEUROLOGICAL: Gross neurological examination did not reveal any focal deficits. SKIN: No rashes. No petechiae - Labs CBC & Chem 7: 09/15/19 06:11 09/17/19 07:53 Labs: Abnormal Lab Results - Last 24 Hours (Table) 09/17/19 Range/Units 07:53 Carbon Dioxide 31 H (22-30) mmol/L BUN 20 H (7-17) mg/dL Creatinine 1.34 H (0.52-1.04) mg/dL Glucose 106 H (74-99) mg/dL Microbiology - Last 24 Hours (Table) 09/13/19 12:31 Blood Culture - Preliminary Blood No Growth after 96 hours Assessment and Plan Assessment: Hypertensive urgency , markedly improved Acute on systolic chronic congestive heart failure, ejection fraction 20-25% Acute urinary tract infection Elevated liver enzymes Heart valvular disease, moderate mitral regurgitation, tricuspid regurgitation and pulmonary valve regurgitation severe pulmonary hypertension old OCCIPITAL infarct with severe small vessel ischemic changes of the brain Plan: This is a pleasant 69 years old female who presents with hypertensive urgency, CHF, UTI. Continue with antihypertensive and follow-up blood pressure closely, continue with Lasix intravenously, monitored input and output. Follow-up cardiology recommendation Continue with ceftriaxone FOLLOW-UP URINE CULTURE. Labs and medication were reviewed.. Continue same treatment. Continue with symptomatic treatment. Resume home medication. Monitor lytes and vitals. DVT and GI prophylaxis. Further recommendations of the clinical course of the patient DVT prophylaxis: Subcutaneous heparin GI Prophylaxis: Pepcid PT/OT: Pending Prognosis is guarded
[2019-09-17] MEDS: SODIUM CHLORIDE 0.9% 1,000 ML IV SCH (17:31)
[2019-09-18] MEDS: FUROSEMIDE 40 MG TAB PO SCH ×2 (08:08→16:36)
[2019-09-18] MEDS: hydrALAZINE HCL 25 MG TAB PO SCH ×2 (08:08→16:36)
[2019-09-18] MEDS: FAMOTIDINE 20 MG TAB PO SCH (08:08)
[2019-09-18] MEDS: METOPROLOL TARTRATE 50 MG TAB PO SCH (08:08)
[2019-09-18] MEDS: HEPARIN SODIUM,PORCINE 5,000 UNIT/ML 1 ML VIAL SQ SCH (08:09)
[2019-09-18] MEDS: SACUBITRIL/VALSARTAN 49 MG-51 MG TABLET PO SCH (08:09)
[2019-09-18] MEDS: ASPIRIN 81 MG PO SCH (08:09)
--- NOTE | 2019-09-18 11:44 | P.PN ---
Subjective Progress Note Date: 09/18/19 Follow-up for acute kidney injury. Objective - Vital Signs Vital signs: Vital Signs Temp 98.1 F 09/18/19 05:00 Pulse 68 09/18/19 05:00 Resp 16 09/18/19 05:00 BP 146/70 09/18/19 05:00 Pulse Ox 98 09/18/19 05:00 Intake & Output 09/17/19 09/18/19 09/18/19 18:59 06:59 18:59 Intake Total 400 Output Total 600 Balance -200 Weight 55.1 kg Intake: Intake, IV Titration 400 Amount cefTRIAXone 1 gm In 400 Sodium Chloride 0.9% 50 ml @ 100 mls/hr IVPB Q24H [facility] Rx#:[id number] Output: Urine 600 Other: Voiding Method Toilet Toilet Toilet # Voids 2 1 - Exam No acute distress S1-S2 heard Decreased breath sounds bases Trace edema - Labs CBC & Chem 7: 09/15/19 06:11 09/17/19 07:53 Labs: Microbiology - Last 24 Hours (Table) 09/13/19 12:31 Blood Culture - Preliminary Blood No Growth after 96 hours Assessment and Plan Assessment: #1 acute kidney injury secondary to type and cardiorenal syndrome #2 systolic CHF with EF of 20-25% #3 severe pulmonary hypertension #4 volume overload improving with diuresis #5 electrolyte abnormality secondary to diuretics #6 UTI with E. coli Plan: #1 renal function stable and improving #2 continue with diuretics and cardiac care. #3 avoid nephrotoxic agents and hypotensive episodes
[2019-09-18 12:20] VITALS: BP 162/81; PULSE 54; RESP 17; TEMP 97.5
[2019-09-18] MEDS: SODIUM CHLORIDE 0.9% 1,000 ML IV SCH (12:44)
--- NOTE | 2019-09-19 09:57 | DS ---
DISCHARGE SUMMARY DATE OF SERVICE: 09/18/2019 FINAL DIAGNOSES: 1. Hypertensive urgency and markedly elevated hypertension on presentation, improved. 2. Possible acute transient ischemic attack. 3. Congestive heart failure with acute on chronic systolic dysfunction, ejection fraction 20% to 25%. 4. Acute urinary tract infection. 5. Elevated liver enzymes. 6. History of cardiac valvular disease with moderate mitral regurgitation, tricuspid regurgitation, pulmonary valve regurgitation. 7. Severe pulmonary hypertension. 8. Old occipital infarct with severe small-vessel ischemic changes in the brain. DISCHARGE DISPOSITION: The patient will be discharged in stable condition with guarded prognosis. HISTORY OF PRESENT ILLNESS: This is a 69-year-old woman with a past medical history of multiple medical issues, admitted with hypertensive urgency. The patient also had some slurred speech also, possible TIA was considered and the patient was monitored by multiple consultants. Otherwise, patient improved significantly and creatinine is stable at 1.34. The patient is also seen by Neurology and the patient discharged as per Neurology. DISCHARGE MEDICATIONS AND ADVICE: 1. Diet is cardiac diet. 2. Activity limited until followup. 3. Follow up with Dr. Chatman in 2-3 days. 4. Follow up with Neurology and Nephrology and Cardiology as recommended. DISCHARGE MEDICATIONS: 1. Aldactone 25 mg p.o. daily. 2. Apresoline 25 mg p.o. b.i.d. 3. Coreg 25 mg p.o. b.i.d. 4. Entrestro 1 p.o. b.i.d. 5. Imdur ER 30 mg p.o. daily. 6. Lasix 40 mg p.o. b.i.d. 7. Lipitor 40 mg p.o. daily. 8. Aspirin 81 mg p.o. daily. 9. Ceftin 500 mg p.o. daily for 3 days. 10.Lopressor 50 mg p.o. b.i.d. Hold the Coreg. MMODL / IJN: [id number] /
--- NOTE | 2019-09-21 11:19 | P.PN ---
Progress Note - Text Progress Note Date: 09/18/19 SUBJECTIVE/INTERVAL EVENTS: No acute overnight events. Patient with no slurred speech, difficulty with producing speech, vision deficit, weakness, numbness, tingling, headache, nausea or vomiting. Patient states that she needs to be very careful with which meds she takes because some meds can be bad for her. Patient states she did not have a data base design analyst before coming to [place]. Patient cannot explain why she didn't have one. Patient states she took ASA every so often when she came to the hospital. Patient was never told that she had a minor stroke or a stroke prior to this admission. PHYSICAL EXAMINATION: VITAL SIGNS: T 98.1 HR 68 RR 16 BP 146/70 O2 sat 98% on RA GEN.: NAD, pleasant and cooperative HEENT: NCAT, sclera without icterus NECK: Supple SKIN AND EXTREMITIES: Warm to touch, no edema NEURO: MENTAL STATUS: Patient alert and oriented to self, place, time. Able to name the current president. Speech fluent, able to name and repeat, following all commands readily. No right and left disorientation, neglect. CRANIAL NERVES II THROUGH XII: II: Pupils are equal and reactive to light symmetrically. Visual medina are intact. III, IV, : No ptosis. Extraocular movements full. No nystagmus. V: Facial sensation intact from V1-3. VII. No clear facial asymmetry. VIII: Hearing intact to finger rub bilaterally. IX, X: Symmetric palate elevation. XI: Shoulder shrug intact. XII: Tongue midline without fasciculation or atrophy. MOTOR: Normal bulk/tone. No pronator drift or tremor. Strength is 5/5 throughout all 4 extremities. SENSORY: Intact to light touch in all 4 extremities REFLEXES: 2+ throughout. Toes are downgoing. COORDINATION: Finger to nose intact. No dysmetria. DIAGNOSTICS: Laboratory: 09/15/19: WBC 6.0 Hgb 14.9 Platelet 199 Na 140 K 3.3 Cl 101 CO2 29 BUN 26 Cr 1.30 glucose 103 AST 39 ALT 44 AlkPhos 144 LDL 39 Imaging: MRI brain w/o contrast 09/14/19: no evidence of a recent infarct. Mild diffuse cerebral strophy with advanced chronic small vessel ischemic change along with old L occipital lobe infarct and smaller scattered lacunar infarcts in R head of caudate and johnson radiata. Carotid Doppler 09/13/19: no evidence for hemodynamically significant stenosis TTE 09/13/19: SR. EF 20-25%. Severe global hypokinesisi of LV. RV mildly enlarged. LA Is severely dilated. ASSESSMENT and PLAN: 69 year-old woman with PMhx of heart failure, HTN, HLD, ?sickle cell anemia, presented to [facility] for cough and chest congestion, consulted N eurology for transient slurred speech lasting for 5-10 minutes. MRI with no evidence of recent infarct. There was old infarct in L occipital lobe and scattered lacunar infarct in R head of caudate and johnson radiata, etiology possibly from hx of sickle cell anemia vs. heart failure vs. small vessel disease. RECOMMENDATION: - ASA 81 mg daily - Atorvastatin 40mg qday - ED precautions discussed with patient - Patient needs outpatient Neurology follow-up within 2-3 weeks of discharge. Needs to be considered for possible initiation of anticoagulation - Patient needs to be set up with PCP and a data base design analyst - Neurology will sign off
== END 2019-09-18 16:53 | disposition home or self-care (01) | DRG 304 ==
LOC: EC 11:34 → 3SCARD 14:29 → 5NMEDONC 09-16 17:55
PROVIDERS: ADMIT Internal Medicine; ATTEND Internal Medicine
DX: I16.0 Hypertensive urgency (principal); I50.23 Acute on chronic systolic (congestive) heart failure; I67.83 Posterior reversible encephalopathy syndrome; G45.9 Transient cerebral ischemic attack, unspecified; N17.9 Acute kidney failure, unspecified; N39.0 Urinary tract infection, site not specified; B96.20 Unspecified Escherichia coli [E. coli] as the cause of diseases classified elsewhere; D57.1 Sickle-cell disease without crisis; E78.5 Hyperlipidemia, unspecified; E83.42 Hypomagnesemia; E87.6 Hypokalemia; F17.210 Nicotine dependence, cigarettes, uncomplicated; I08.8 Other rheumatic multiple valve diseases; I13.0 Hypertensive heart and chronic kidney disease with heart failure and stage 1 through stage 4 chronic kidney disease, or unspecified chronic kidney disease; I27.20 Pulmonary hypertension, unspecified; I49.3 Ventricular premature depolarization; Z86.73 Personal history of transient ischemic attack (TIA), and cerebral infarction without residual deficits; R47.81 Slurred speech; K80.20 Calculus of gallbladder without cholecystitis without obstruction; N18.9 Chronic kidney disease, unspecified; T50.2X5A Adverse effect of carbonic-anhydrase inhibitors, benzothiadiazides and other diuretics, initial encounter; Z79.899 Other long term (current) drug therapy; Z82.49 Family history of ischemic heart disease and other diseases of the circulatory system; Z98.51 Tubal ligation status; R41.3 Other amnesia
CPT/HCPCS: 36415; 70450; 70551; 71046; 76705; 80048; 80053; 80061; 80076; 81001; 83605; 83735; 83880; 84132; 84484; 85025; 85045; 85610; 85730; 87040; 87077; 87086; 87186; 87502; 93005; 93306; 93880; 94640; 96374; 96375; 96376; 99291

== ENCOUNTER → 2020-07-13 | Outpatient (CLI) | payer MEDICARE | END | disposition home or self-care (01) | LOC: LABWHC1 09:48 | PROVIDERS: ATTEND Nurse Practitioner Family | DX: Z20.828 Contact with and (suspected) exposure to other viral communicable diseases (principal) | CPT/HCPCS: U0003; C9803 ==

== ENCOUNTER 2021-07-29 21:27 | Inpatient (IN) | payer MEDICARE ==
--- NOTE | 2021-07-29 23:14 | ED ---
SOB HPI - General Chief Complaint: Shortness of Breath Stated Complaint: Water retention in lower legs Time Seen by Provider: 07/29/21 23:10 Source: patient, family Mode of arrival: wheelchair - Related Data Home Medications Medication Instructions Recorded Confirmed Atorvastatin [Lipitor] 40 mg PO DAILY 09/13/19 09/13/19 Furosemide [Lasix] 40 mg PO BID 09/13/19 09/13/19 Isosorbide Mononitrate ER [Imdur] 30 mg PO DAILY 09/13/19 09/13/19 Sacubitril/Valsartan [Entresto 97 1 tab PO BID 09/13/19 09/13/19 mg-103 mg Tablet] Spironolactone [Aldactone] 25 mg PO DAILY 09/13/19 09/13/19 hydrALAZINE HCL [Apresoline] 25 mg PO BID 09/13/19 09/13/19 Previous Rx's Medication Instructions Recorded Aspirin 81 mg PO DAILY #30 chew 09/18/19 Cefuroxime Axetil [Ceftin] 500 mg PO BID 3 Days #6 tab 09/18/19 Metoprolol Tartrate [Lopressor] 50 mg PO BID #60 tab 09/18/19 Allergies Allergy/AdvReac Type Severity Reaction Status Date / Time No Known Allergies Allergy Verified 07/29/21 21:56 Review of Systems ROS Statement: Those systems with pertinent positive or pertinent negative responses have been documented in the HPI. ROS Other: All systems not noted in ROS Statement are negative. Past Medical History Past Medical History: Heart Failure, Hyperlipidemia, Hypertension Additional Past Medical History / Comment(s): Sickle cell anemia, pt states she thinks she may have had a prior TIA History of Any Multi-Drug Resistant Organisms: None Reported Past Surgical History: Tubal Ligation Past Anesthesia/Blood Transfusion Reactions: No Reported Reaction Past Psychological History: No Psychological Hx Reported Smoking Status: Never smoker Past Alcohol Use History: Occasional Past Drug Use History: None Reported - Past Family History Father Family Medical History: No Reported History Additional Family Medical History / Comment(s): Father was healthy Mother Family Medical History: Hypertension Course Vital Signs 07/29/21 21:56 Temperature 98 F Pulse Rate 100 Respiratory 18 Rate Blood Pressure 160/91 O2 Sat by Pulse 98 Oximetry Medical Decision Making - Lab Data Result diagrams: 07/29/21 23:48 07/29/21 23:48 Lab Results 07/29/21 07/29/21 07/29/21 Range/Units 23:48 23:48 23:48 WBC 4.9 (3.8-10.6) k/uL RBC 4.29 (3.80-5.40) m/uL Hgb 11.6 (11.4-16.0) gm/dL Hct 35.9 (34.0-46.0) % MCV 83.6 (80.0-100.0) fL MCH 27.0 (25.0-35.0) pg MCHC 32.4 (31.0-37.0) g/dL RDW 15.2 (11.5-15.5) % Plt Count 197 (150-450) k/uL MPV 9.7 Neutrophils % 68 % Lymphocytes % 21 % Monocytes % 7 % Eosinophils % 2 % Basophils % 0 % Neutrophils # 3.3 (1.3-7.7) k/uL Lymphocytes # 1.0 (1.0-4.8) k/uL Monocytes # 0.4 (0-1.0) k/uL Eosinophils # 0.1 (0-0.7) k/uL Basophils # 0.0 (0-0.2) k/uL PT 12.8 H (9.0-12.0) sec INR 1.2 H (<1.2) APTT 24.8 (22.0-30.0) sec Sodium 138 (137-145) mmol/L Potassium 3.7 (3.5-5.1) mmol/L Chloride 106 (98-107) mmol/L Carbon Dioxide 25 (22-30) mmol/L Anion Gap 7 mmol/L BUN 20 H (7-17) mg/dL Creatinine 1.04 (0.52-1.04) mg/dL Est GFR (CKD-EPI)AfAm 63 (>60 ml/min/1.73 sqM) Est GFR (CKD-EPI)NonAf 55 (>60 ml/min/1.73 sqM) Glucose 110 H (74-99) mg/dL Plasma Lactic Acid Reuben (0.7-2.0) mmol/L Calcium 9.4 (8.4-10.2) mg/dL Magnesium 2.0 (1.6-2.3) mg/dL Total Bilirubin 1.2 (0.2-1.3) mg/dL AST 46 H (14-36) U/L ALT 33 (4-34) U/L Alkaline Phosphatase 157 H (38-126) U/L Total Protein 7.2 (6.3-8.2) g/dL Albumin 3.7 (3.5-5.0) g/dL 07/29/21 Range/Units 23:48 WBC (3.8-10.6) k/uL RBC (3.80-5.40) m/uL Hgb (11.4-16.0) gm/dL Hct (34.0-46.0) % MCV (80.0-100.0) fL MCH (25.0-35.0) pg MCHC (31.0-37.0) g/dL RDW (11.5-15.5) % Plt Count (150-450) k/uL MPV Neutrophils % % Lymphocytes % % Monocytes % % Eosinophils % % Basophils % % Neutrophils # (1.3-7.7) k/uL Lymphocytes # (1.0-4.8) k/uL Monocytes # (0-1.0) k/uL Eosinophils # (0-0.7) k/uL Basophils # (0-0.2) k/uL PT (9.0-12.0) sec INR (<1.2) APTT (22.0-30.0) sec Sodium (137-145) mmol/L Potassium (3.5-5.1) mmol/L Chloride (98-107) mmol/L Carbon Dioxide (22-30) mmol/L Anion Gap mmol/L BUN (7-17) mg/dL Creatinine (0.52-1.04) mg/dL Est GFR (CKD-EPI)AfAm (>60 ml/min/1.73 sqM) Est GFR (CKD-EPI)NonAf (>60 ml/min/1.73 sqM) Glucose (74-99) mg/dL Plasma Lactic Acid Reuben 1.3 (0.7-2.0) mmol/L Calcium (8.4-10.2) mg/dL Magnesium (1.6-2.3) mg/dL Total Bilirubin (0.2-1.3) mg/dL AST (14-36) U/L ALT (4-34) U/L Alkaline Phosphatase (38-126) U/L Total Protein (6.3-8.2) g/dL Albumin (3.5-5.0) g/dL - EKG Data -: EKG Interpreted by Me (EKG is sinus rhythm 94 CA 122 QRS 94 QTC 480) Disposition Clinical Impression: CHF (congestive heart failure), Bilateral leg edema Disposition: ADMITTED IP TO THIS HOSP Condition: Fair Is patient prescribed a controlled substance at d/c from ED?: No Referrals: None,Stated [Primary Care Provider] - 1-2 days
--- NOTE | 2021-07-29 23:32 | XR ---
EXAMINATION TYPE: XR chest 1V portable DATE OF EXAM: 07/29/2021 COMPARISON: 09/13/2019 HISTORY: Weakness TECHNIQUE: 2 views FINDINGS: There is some blunting of the right costophrenic angle. There is mild pulmonary congestion. Heart is enlarged. There is mild infiltrate at the right lung base. IMPRESSION: There is evidence for some mild heart failure with right pleural effusion and mild right basilar infiltrate. This appears increased compared to old exam.
[2021-07-30 00:14] LABS: Basophils % (A) 0 %; Eosinophils # (A) 0.1 k/uL (0-0.7); Eosinophils % (A) 2 %; HCT 35.9 % (34.0-46.0); HGB 11.6 gm/dL (11.4-16.0); Lymphocytes % (A) 21 %; MCHC 32.4 g/dL (31.0-37.0); MCV 83.6 fL (80.0-100.0); Mean Platelet Volume 9.7; Monocytes # (A) 0.4 k/uL (0-1.0); Monocytes % (A) 7 %; Neutrophils # (A) 3.3 k/uL (1.3-7.7); Neutrophils % (A) 68 %; Platelet Count 197 k/uL (150-450); RBC 4.29 m/uL (3.80-5.40); RDW 15.2 % (11.5-15.5); WBC 4.9 k/uL (3.8-10.6)
[2021-07-30 00:36] LABS: Albumin 3.7 g/dL (3.5-5.0); Calcium 9.4 mg/dL (8.4-10.2); Potassium 3.7 mmol/L (3.5-5.1); Total Bilirubin 1.2 mg/dL (0.2-1.3); Total Protein 7.2 g/dL (6.3-8.2)
[2021-07-30 00:46] LABS: INR 1.2 (<1.2); Partial Thromboplastin Time 24.8 sec (22.0-30.0); Prothrombin Time 12.8 sec (9.0-12.0)
[2021-07-30] MEDS: FUROSEMIDE 10 MG/ML 4 ML VIAL IV SCH ×3 (03:11→20:21)
[2021-07-30] MEDS: cloNIDine HCL 0.2 MG TAB PO PRN ×2 (05:48→10:58)
[2021-07-30] MEDS ORDERED: HEPARIN SODIUM 1,000 UN/ML (10ML VL) IV PRN (06:38)
[2021-07-30] MEDS ORDERED: HEPARIN SODIUM 1,000 UN/ML (10ML VL) IV ONE (06:38)
--- NOTE | 2021-07-30 06:47 | P.HPIM ---
History of Present Illness H&P Date: 07/30/21 Chief Complaint: Progressive shortness of breath 69-year-old female with history of hypertension, and possible congestive heart failure Patient is very poor historian has poor insight of her conditions She reports that she came to the hospital due to progressive shortness of breath, currently she is having exertional dyspnea with very mild exertion over the past few days for which she decided to come to the hospital she reports difficulty with laying flat as she is gets some orthopnea, she denies any worsening of her leg swelling she claims that she chronically has some mild leg edema. She also has chronic right leg erythema which has not changed recently. She denies any fevers or chills denies any coughing denies any hemoptysis denies any chest pain denies any changes in her bowel or urinary habits denies any changes in her medications however she reports she only takes blood pressure medications she doesn't know them she doesn't know how many pills she takes and she doesn't know the name of her medications. In the ED workup showed chest x-ray mild CHF changes proBNP elevated to 5500 No hypoxemia Review of Systems Pertinent positives as noted in HPI. All other systems were reviewed and are negative Past Medical History Past Medical History: Heart Failure, Hyperlipidemia, Hypertension Additional Past Medical History / Comment(s): Sickle cell anemia, pt states she thinks she may have had a prior TIA History of Any Multi-Drug Resistant Organisms: None Reported Past Surgical History: Tubal Ligation Past Anesthesia/Blood Transfusion Reactions: No Reported Reaction Past Psychological History: No Psychological Hx Reported Smoking Status: Never smoker Past Alcohol Use History: Occasional Past Drug Use History: None Reported - Past Family History Father Family Medical History: No Reported History Additional Family Medical History / Comment(s): Father was healthy Mother Family Medical History: Hypertension Medications and Allergies Home Medications Medication Instructions Recorded Confirmed Type Atorvastatin [Lipitor] 40 mg PO DAILY 09/13/19 09/13/19 History Furosemide [Lasix] 40 mg PO BID 09/13/19 09/13/19 History Isosorbide Mononitrate ER [Imdur] 30 mg PO DAILY 09/13/19 09/13/19 History Sacubitril/Valsartan [Entresto 97 1 tab PO BID 09/13/19 09/13/19 History mg-103 mg Tablet] Spironolactone [Aldactone] 25 mg PO DAILY 09/13/19 09/13/19 History hydrALAZINE HCL [Apresoline] 25 mg PO BID 09/13/19 09/13/19 History Aspirin 81 mg PO DAILY #30 chew 09/18/19 Rx Cefuroxime Axetil [Ceftin] 500 mg PO BID 3 Days #6 tab 09/18/19 Rx Metoprolol Tartrate [Lopressor] 50 mg PO BID #60 tab 09/18/19 Rx Allergies Allergy/AdvReac Type Severity Reaction Status Date / Time No Known Allergies Allergy Verified 07/29/21 21:56 Physical Exam Vitals: Vital Signs Temp Pulse Resp BP Pulse Ox 07/30/21 06:15 94 22 151/88 96 07/30/21 05:23 99 22 168/115 97 07/30/21 03:00 94 20 174/82 96 07/30/21 02:00 92 22 96 07/29/21 23:57 94 22 162/82 95 07/29/21 21:56 98 F 100 18 160/91 98 Intake and Output 07/29/21 07/29/21 07/30/21 14:59 22:59 06:59 Other: Weight 66.678 kg Constitutional: No acute distress, conversant, pleasant, very poor historian poor insight of her condition Eyes: Anicteric sclerae, moist conjunctiva, Pupils equal round reactive to light ENMT: NC/AT Oropharynx clear, no erythema, or exudates Neck: Supple, FROM, no masses, or JVD No carotid bruits No thyromegaly Lungs: Good breath sounds overall with decrease breath sounds at lung bases with inspiratory rales Clear to percussion Normal respiratory effort, no accessory muscle use Cardiovascular: Heart regular in rate and rhythm, No murmurs, gallops, or rubs Bilateral +2 pitting peripheral edema Abdominal: Soft Nontender, no guarding, rebound or rigidity Abdomen moving with respiration Normoactive bowel sounds No hepatomegaly, No splenomegaly No palpable mass No abdominal wall hernia noted Skin: Normal temperature, tone, texture, turgor Slight erythema over the right leg patient claims that this is chronic no tenderness to palpation Extremities: No digital cyanosis No clubbing Pedal pulses difficult to palpate due to pedal edema bilaterally capillary refill immediate Radial pulses intact and symmetrical No calf tenderness Psychiatric: Alert and oriented to person, place Appropriate affect Poor judgment judgement Neuro Muscles Strength 4/5 in all 4 extremities Sensation to light touch grossly present throughout Cranial nerves II-XII grossly intact N Lymphatics: no palpable cervical or supraclavicular , or inguinal lymph nodes Results CBC & Chem 7: 07/29/21 23:48 07/29/21 23:48 Labs: Abnormal Lab Results - Last 24 Hours (Table) 07/29/21 07/29/21 07/29/21 Range/Units 23:48 23:48 23:48 PT 12.8 H (9.0-12.0) sec INR 1.2 H (<1.2) BUN 20 H (7-17) mg/dL Glucose 110 H (74-99) mg/dL AST 46 H (14-36) U/L Alkaline Phosphatase 157 H (38-126) U/L Troponin I 0.052 H* (0.000-0.034) ng/mL 07/30/21 Range/Units 04:04 PT (9.0-12.0) sec INR (<1.2) BUN (7-17) mg/dL Glucose (74-99) mg/dL AST (14-36) U/L Alkaline Phosphatase (38-126) U/L Troponin I 0.067 H* (0.000-0.034) ng/mL Assessment and Plan Assessment: Progressive exertional dyspnea with acute CHF exacerbation Elevated troponins and rule out NSTEMI Most recent left ventricular ejection fraction of 20% from 2019 IV diuresis Resume cardiac meds on file Verify home medications Cardiology consult Monitor urine output Daily weights Monitor vital signs Elevated troponins Heparin drip for ACS Patient full code Anticipated length of stay more than 2 midnights Anticipated discharge home
[2021-07-30] MEDS: HEPARIN SOD,PORK IN 0.45% NACL 25,000 UNIT in 0.45% NACL 1 250ML.BAG IV SCH (07:18)
[2021-07-30 07:53] LABS: Basophils % (A) 0 %; Eosinophils # (A) 0.1 k/uL (0-0.7); Eosinophils % (A) 2 %; HCT 31.4 % (34.0-46.0); HGB 10.3 gm/dL (11.4-16.0); Lymphocytes # (A) 0.8 k/uL (1.0-4.8); Lymphocytes % (A) 18 %; MCH 27.4 pg (25.0-35.0); MCHC 32.8 g/dL (31.0-37.0); MCV 83.4 fL (80.0-100.0); Mean Platelet Volume 10.8; Monocytes # (A) 0.3 k/uL (0-1.0); Monocytes % (A) 7 %; Neutrophils # (A) 2.9 k/uL (1.3-7.7); Neutrophils % (A) 71 %; Platelet Count 161 k/uL (150-450); RBC 3.76 m/uL (3.80-5.40); RDW 15.3 % (11.5-15.5); WBC 4.1 k/uL (3.8-10.6)
[2021-07-30 08:03] LABS: INR 1.3 (<1.2); Partial Thromboplastin Time 28.9 sec (22.0-30.0); Prothrombin Time 13.4 sec (9.0-12.0)
[2021-07-30] MEDS: METOPROLOL TARTRATE 50 MG TAB PO SCH ×2 (10:58→21:34)
[2021-07-30] MEDS: ATORVASTATIN 40 MG TAB PO SCH (10:58)
[2021-07-30] MEDS: ASPIRIN 81 MG PO SCH (10:58)
[2021-07-30] MEDS: SPIRONOLACTONE 25 MG TAB PO SCH (10:59)
[2021-07-30] MEDS: hydrALAZINE HCL 25 MG TAB PO SCH ×2 (10:59→21:34)
[2021-07-30] MEDS: ISOSORBIDE MONONITRATE ER 30 MG TAB.ER.24H PO SCH (10:59)
--- NOTE | 2021-07-30 16:40 | P.PN ---
Subjective Patient was seen and evaluated by me this morning. She was sitting at the edge of the bed. She denies any significant shortness of breath. She has severe lower extremity edema Objective - Vital Signs Vital signs: Vital Signs Temp 98 F 07/29/21 21:56 Pulse 79 07/30/21 10:55 Resp 20 07/30/21 10:55 BP 158/96 07/30/21 10:55 Pulse Ox 99 07/30/21 10:55 Intake & Output 07/29/21 07/30/21 07/30/21 18:59 06:59 18:59 Intake Total 61.177 Balance 61.177 Weight 66.678 kg Intake: Intake, IV Titration 61.177 Amount Heparin Sod,Pork in 0.45% 61.177 NaCl 25,000 unit In 0.45 % NaCl 1 250ml.bag @ 12 UNITS/KG/HR 8.001 mls/hr IV .Q24H [facility] Rx#: [id number] - Exam General: The patient is awake and alert, in no distress Eye: there is normal conjunctiva bilaterally. Neck: The neck is supple, there is no JVD. Cardiovascular: Normal S1-S2, no S3-S4, no murmurs. Respiratory: Lungs clear to auscultation bilaterally Gastrointestinal: Abdomen is soft, nontender Musculoskeletal: There is +3 edema. Neurological:. Speech is normal. Skin: Skin is warm and dry - Labs CBC & Chem 7: 07/30/21 07:39 07/29/21 23:48 Labs: Abnormal Lab Results - Last 24 Hours (Table) 07/29/21 07/29/21 07/29/21 Range/Units 23:48 23:48 23:48 RBC (3.80-5.40) m/uL Hgb (11.4-16.0) gm/dL Hct (34.0-46.0) % Lymphocytes # (1.0-4.8) k/uL PT 12.8 H (9.0-12.0) sec INR 1.2 H (<1.2) APTT (22.0-30.0) sec BUN 20 H (7-17) mg/dL Glucose 110 H (74-99) mg/dL AST 46 H (14-36) U/L Alkaline Phosphatase 157 H (38-126) U/L Troponin I 0.052 H* (0.000-0.034) ng/mL 07/30/21 07/30/21 07/30/21 Range/Units 04:04 05:39 07:39 RBC 3.76 L (3.80-5.40) m/uL Hgb 10.3 L (11.4-16.0) gm/dL Hct 31.4 L (34.0-46.0) % Lymphocytes # 0.8 L (1.0-4.8) k/uL PT (9.0-12.0) sec INR (<1.2) APTT (22.0-30.0) sec BUN (7-17) mg/dL Glucose (74-99) mg/dL AST (14-36) U/L Alkaline Phosphatase (38-126) U/L Troponin I 0.067 H* 0.049 H* (0.000-0.034) ng/mL 07/30/21 07/30/21 Range/Units 07:42 12:27 RBC (3.80-5.40) m/uL Hgb (11.4-16.0) gm/dL Hct (34.0-46.0) % Lymphocytes # (1.0-4.8) k/uL PT 13.4 H (9.0-12.0) sec INR 1.3 H (<1.2) APTT >200.0 H* (22.0-30.0) sec BUN (7-17) mg/dL Glucose (74-99) mg/dL AST (14-36) U/L Alkaline Phosphatase (38-126) U/L Troponin I (0.000-0.034) ng/mL Assessment and Plan Assessment: This is a 69-year-old female with complex past medical history noted below that presented to the emergency room with worsening shortness of breath and exertional dyspnea. Patient was evaluated in the ER and admitted to the hospital for further management of her medical problems noted below. 1. Acute congestive heart failure exacerbation, unclear type. I would order echocardiogram. I would also place a consult for cardiology. Continue diuresis with IV Lasix 40 mg twice daily. Monitor electrolytes closely. 2. Essential hypertension, blood pressure not well controlled. Resume home medications and continue to monitor blood pressure closely 3. Non-ST elevation [place], type II. Most likely secondary to congestive heart failure and troponin leak. Patient was started on IV heparin drip awaiting cardiology evaluation.
[2021-07-30] MEDS: SACUBITRIL/VALSARTAN 97 MG-103 MG TABLET PO SCH ×2 (17:09→21:34)
--- NOTE | 2021-07-30 17:31 | ECHOF ---
Referral Reason: MEASUREMENTS -------- HEIGHT: 154.9 cm WEIGHT: 66.7 kg BP: RVIDd: 3.0 cm (< 3.3) IVSd: 1.2 cm (0.6 - 1.1) LVIDd: 4.9 cm (3.9 - 5.3) LVPWd: 1.5 cm (0.6 - 1.1) IVSs: 1.5 cm LVIDs: 4.1 cm LVPWs: 1.8 cm LAESV Index (A-L): 44.20 ml/m Ao Diam: 3.0 cm (2.0 - 3.7) AV Cusp: 1.5 cm (1.5 - 2.6) LA Diam: 4.3 cm (2.7 - 3.8) MV EXCURSION: 11.532 mm (> 18.000) MV EF SLOPE: 50 mm/s (70 - 150) EPSS: 1.8 cm MV E Austin: 0.83 m/s MV DecT: 237 ms MV A Austin: 0.58 m/s MV E/A Ratio: 1.42 AR PHT: 901 ms RAP: 20.00 mmHg RVSP: 56.81 mmHg FINDINGS -------- Sinus rhythm. This was a technically adequate study. The left ventricular size is normal. There is mild concentric left ventricular hypertrophy. There is severe global hypokinesis of LV . Overall left ventricular systolic function is severely impair ed with, an EF between 20 - 25 %. Increased LAP. Grade 3 Diastolic Dysfunction. The right ventricle is normal in size. LA is severely dilated >40 ml/m2 The right atrial size is normal. Aneurysmal Interatrial septum. Aortic valve is trileaflet and is mildly thickened. There is moderate aortic regurgitation. The mitral valve is normal. Severe mitral regurgitation is present. The tricuspid valve appears structurally normal. Severe tricuspid regurgitation present. There is moderate to severe pulmonary hypertension. The right ventricular systolic pressure, as measured by Doppler, is 56.81mmHg. There is no pulmonic regurgitation present. The aortic root size is normal. The inferior vena cava is dilated with no significant inspiratory collapse which is consistent estima cody right atrial pressure of >20 mmHg. There is a trivial pericardial effusion present. CONCLUSIONS -------- 1. There is mild concentric left ventricular hypertrophy. 2. There is severe global hypokinesis of LV . 3. Overall left ventricular systolic function is severely impaired with, an EF between 20 - 25 %. 4. Increased LAP. Grade 3 Diastolic Dysfunction. 5. LA is severely dilated >40 ml/m2 6. Aneurysmal Interatrial septum. 7. Aortic valve is trileaflet and is mildly thickened. 8. There is moderate aortic regurgitation. 9. Severe mitral regurgitation is present. 10. Severe tricuspid regurgitation present. 11. There is moderate to severe pulmonary hypertension. 12. The inferior vena cava is dilated with no significant inspiratory collapse which is consistent es timated right atrial pressure of >20 mmHg. 13. There is a trivial pericardial effusion present. RETURNS SUPERVISOR: Damaris Loera RDCS
[2021-07-31] MEDS: HEPARIN SOD,PORK IN 0.45% NACL 25,000 UNIT in 0.45% NACL 1 250ML.BAG IV SCH (06:55)
[2021-07-31] MEDS: FUROSEMIDE 10 MG/ML 4 ML VIAL IV SCH ×2 (06:55→18:31)
[2021-07-31] MEDS: hydrALAZINE HCL 25 MG TAB PO SCH ×2 (07:49→20:40)
[2021-07-31] MEDS: ATORVASTATIN 40 MG TAB PO SCH (07:49)
[2021-07-31] MEDS: SACUBITRIL/VALSARTAN 97 MG-103 MG TABLET PO SCH ×2 (07:49→20:40)
[2021-07-31] MEDS: ASPIRIN 81 MG PO SCH (07:49)
[2021-07-31] MEDS: SPIRONOLACTONE 25 MG TAB PO SCH (07:49)
[2021-07-31] MEDS: METOPROLOL TARTRATE 50 MG TAB PO SCH ×2 (07:49→20:40)
[2021-07-31] MEDS: ISOSORBIDE MONONITRATE ER 30 MG TAB.ER.24H PO SCH (07:49)
--- NOTE | 2021-07-31 08:34 | P.CRDCN ---
History of Present Illness Consult date: 07/31/21 Consult reason: congestive heart failure History of present illness: HISTORY OF PRESENT ILLNESS This is a 69-year-old female with past medical history of sickle cell anemia, hypertension, chronic systolic heart failure, hyperlipidemia, memory loss, tobacco use and dependence. Patient presented to the hospital due to increasing shortness of breath which she states have been going on for 2-3 days and worsening. She does not have home oxygen therapy. She is not sure if she gained any weight or had any lower extremity edema. Patient is very vague when answering any questions. She may have had some chest pain in the middle of her chest but not sure. She has an active smoker and is unclear if she smokes more than a few cigarettes per week but isn't smoking since her 20s. 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 Hemoglobin 10.3. INR 1.3. B UN 20 creatinine 1.04. Blood sugar 110. AST 46, alkaline phosphatase 157. Troponins 0.052, 0.067, 0.049. COVID-19 PCR not detected. Patient presented with blood pressure 160/91. Chest x-ray reveals mild heart failure with right pleural effusion and mild right basilar infiltrate. This appears increased from old exam. EKG sinus rhythm with PVCs. Echocardiogram reveals EF of 20-25% with severe global hypokinesia of the LV, mild concentric left hypertrophy, grade 3 diastolic dysfunction, aneurysmal intra-atrial septum, moderate aortic regurgitation, severe mitral regurgitation, severe tricuspid regurgitation, moderate to severe pulmonary hypertension. Patient has been started on IV Lasix 40 mg every 12 hours, hydralazine 25 mg twice daily, Imdur 30 mg daily, Lopressor 50 mg twice daily, Entresto 97 mg103 mg 1 twice daily, Aldactone 25 mg daily. It appears from the records, patient is not on any home medications. REVIEW OF SYSTEMS Constitutional: No fever, no chills. No weakness, fatigue or lethargy. EENT: No headache. No dizziness. Lungs: Reported shortness of breath, cough, no sputum production. No wheezing. Cardiovascular: Reported chest pain, noted lower extremity edema. No palpitations. No paroxysmal nocturnal dyspnea. No orthopnea. No lightheadedness or dizziness. No syncopal episodes. Abdominal: No abdominal pain. No nausea, vomiting. No diarrhea. No constipation. No bloody or tarry stools.. No loss of appetite. Genitourinary: No dysuria. No urinary retention. Musculoskeletal: No myalgias. No muscle weakness, no gait dysfunction, no f requent falls. No back pain. No neck pain. Integumentary: No wounds, no lesions. No rash or pruritus. No unusual bruising. Neurologic: No aphasia. No facial droop. No change in mentation. No head injury. No headache. No paralysis. No paresthesia. Psychiatric: No depression. No anxiety. Endocrine: No abnormal blood sugars. PHYSICAL EXAMINATION Gen: This is a 69-year-old black female, resting in bed and appears to be in no acute distress. VS: Afebrile, heart rate 77, blood pressure 130/71, pulse ox 97% on 2 L nasal cannula. HEENT: Head is atraumatic, normocephalic. Pupils equal, round. Sclerae is anicteric. NECK: Supple. No JVD. No lymphadenopathy. No thyromegaly. LUNGS: Diminished in the bases. No wheezes or rhonchi. No intercostal retractions. HEART: Irregular rate and rhythm. No murmur. ABDOMEN: Soft. Bowel sounds are present. No masses. No tenderness. EXTREMITIES: 1+ pedal edema. No calf tenderness. NEUROLOGICAL: Patient is awake, alert and oriented x3. Cranial nerves 2 through 12 are grossly intact. ASSESSMENT Acute on chronic systolic heart failure Cardiomyopathy with EF of 20-25% Elevated troponins, ruled out acute coronary syndrome Uncontrolled hypertension Hyperlipidemia Active tobacco use and dependence Sickle cell anemia Poor short-term memory PLAN Continue IV Lasix 40 mg every 12 hours, monitor I&O and daily weights, monitor electrolytes and renal function Maintain current cardiac medications as listed above Further recommendations to follow based upon clinical course Thank you kindly for this consultation. Nurse practitioner note has been reviewed, I agree with documented findings and plan of care. Patient was seen and examined. Past Medical History Past Medical History: Heart Failure, Hyperlipidemia, Hypertension Additional Past Medical History / Comment(s): Sickle cell anemia, pt states she thinks she may have had a prior TIA History of Any Multi-Drug Resistant Organisms: None Reported Past Surgical History: Tubal Ligation Past Anesthesia/Blood Transfusion Reactions: No Reported Reaction Smoking Status: Current some day smoker - Past Family History Father Family Medical History: No Reported History Additional Family Medical History / Comment(s): Father was healthy Mother Family Medical History: Hypertension Medications and Allergies Home Medications Medication Instructions Recorded Confirmed Type No Known Home Medications 07/30/21 07/30/21 History Allergies Allergy/AdvReac Type Severity Reaction Status Date / Time No Known Allergies Allergy Verified 07/29/21 21:56 Physical Exam Vitals: Vital Signs Temp Pulse Pulse Resp BP BP Pulse Ox 07/31/21 07:52 19 97 07/31/21 07:51 98.5 F 77 19 138/71 89 L 07/31/21 03:00 97.8 F 72 20 134/75 94 L 07/30/21 23:32 57 L 17 97/61 96 07/30/21 21:00 97.5 F L 63 18 126/85 97 07/30/21 15:00 98.5 F 18 148/77 98 07/30/21 14:00 20 07/30/21 10:55 79 20 158/96 99 Intake and Output 07/30/21 07/31/21 07/31/21 22:59 06:59 14:59 Intake Total 0 240 Output Total 250 300 250 Balance -250 -60 -250 Intake: Intake, IV Titration 0 Amount Heparin Sod,Pork in 0.45% 0 NaCl 25,000 unit In 0.45 % NaCl 1 250ml.bag @ 12 UNITS/KG/HR 8.001 mls/hr IV .Q24H [facility] Rx#: [id number] Oral 240 Output: Urine 250 300 250 Other: Voiding Method Toilet Toilet # Voids 1 Weight 66.678 kg 66.8 kg Results 07/31/21 10:45 07/31/21 10:45 Coagulation 07/30/21 07/30/21 Range/Units 12:27 19:27 APTT >200.0 H* 50.2 H (22.0-30.0) sec Current Medications Generic Name Dose Route Start Last Admin Trade Name Freq PRN Reason Stop Dose Admin Aspirin 81 mg 07/30/21 09:00 07/31/21 07:49 Aspirin 81 Mg PO 81 mg DAILY [facility] Administration Atorvastatin Calcium 40 mg 07/30/21 09:00 07/31/21 07:49 Atorvastatin 40 Mg Tab PO 40 mg DAILY [facility]I Administration Furosemide 40 mg 07/30/21 19:00 07/31/21 06:55 Furosemide 10 Mg/Ml 4 Ml Vial IV 40 mg Q12H [facility] Administration Heparin Sodium (Porcine) 0 unit 07/30/21 06:38 07/30/21 11:30 Heparin Sodium 1,000 Un/Ml (10ml Vl) IV 3,333.9 unit PER PROTOCOL PRN Administration Low PTT Protocol Hydralazine HCl 25 mg 07/30/21 09:00 07/31/21 07:49 Hydralazine Hcl 25 Mg Tab PO 25 mg BID CHARI Administration Heparin Sodium/Sodium Chloride 250 mls @ 8.001 mls/hr 07/30/21 06:45 07/31/21 06:55 25,000 unit/ Sodium Chloride IV Not Given .Q24H [facility] Protocol 12 UNITS/KG/HR Isosorbide Mononitrate 30 mg 07/30/21 09:00 07/31/21 07:49 Isosorbide Mononitrate Er 30 Mg Tab.Er.24h PO 30 mg DAILY [facility]I Administration Metoprolol Tartrate 50 mg 07/30/21 09:00 07/31/21 07:49 Metoprolol Tartrate 50 Mg Tab PO 50 mg BID [facility]I Administration Sacubitril/Valsartan 1 each 07/30/21 09:00 07/31/21 07:49 Sacubitril/Valsartan 97 Mg-103 Mg Tablet PO 1 each BID [facility] Administration Spironolactone 25 mg 07/30/21 09:00 07/31/21 07:49 Spironolactone 25 Mg Tab PO 25 mg DAILY [facility]I Administration Intake and Output 07/30/21 07/31/21 07/31/21 22:59 06:59 14:59 Intake Total 0 240 Output Total 250 300 250 Balance -250 -60 -250 Intake: Intake, IV Titration 0 Amount Heparin Sod,Pork in 0.45% 0 NaCl 25,000 unit In 0.45 % NaCl 1 250ml.bag @ 12 UNITS/KG/HR 8.001 mls/hr IV .Q24H [facility] Rx#: [id number] Oral 240 Output: Urine 250 300 250 Other: Voiding Method Toilet Toilet # Voids 1 Weight 66.678 kg 66.8 kg 07/30/21 07:39 07/29/21 23:48
--- NOTE | 2021-07-31 10:44 | P.PN ---
Subjective Patient is feeling about the same yesterday. She is diuresing well. Lower extremity edema is not really improving. Objective - Vital Signs Vital signs: Vital Signs Temp 98.5 F 07/31/21 07:51 Pulse 77 07/31/21 08:00 Resp 19 07/31/21 08:00 BP 138/71 07/31/21 07:51 Pulse Ox 97 07/31/21 07:52 Intake & Output 07/30/21 07/31/21 07/31/21 18:59 06:59 18:59 Intake Total 61.177 240 Output Total 550 250 Balance 61.177 -310 -250 Weight 66.8 kg Intake: Intake, IV Titration 61.177 Amount Heparin Sod,Pork in 0.45% 61.177 NaCl 25,000 unit In 0.45 % NaCl 1 250ml.bag @ 12 UNITS/KG/HR 8.001 mls/hr IV .Q24H [facility] Rx#: [id number] Oral 240 Output: Urine 550 250 Other: Voiding Method Diaper Toilet Toilet # Voids 2 1 # Bowel Movements 1 - Exam General: The patient is awake and alert, in no distress Eye: there is normal conjunctiva bilaterally. Neck: The neck is supple, there is no JVD. Cardiovascular: Normal S1-S2, no S3-S4, no murmurs. Respiratory: Lungs clear to auscultation bilaterally Gastrointestinal: Abdomen is soft, nontender Musculoskeletal: There is +3 edema. Neurological:. Speech is normal. Skin: Skin is warm and dry - Labs CBC & Chem 7: 07/30/21 07:39 07/29/21 23:48 Labs: Abnormal Lab Results - Last 24 Hours (Table) 07/30/21 07/30/21 Range/Units 12:27 19:27 APTT >200.0 H* 50.2 H (22.0-30.0) sec Assessment and Plan Assessment: This is a 69-year-old female with complex past medical history noted below that presented to the emergency room with worsening shortness of breath and exertional dyspnea. Patient was evaluated in the ER and admitted to the hospital for further management of her medical problems noted below. 1. Acute systolic congestive heart failure exacerbation: Continue diuresis with IV Lasix 40 mg twice daily. Monitor electrolytes closely. Echocardiogram showed EF of 20-25%. Cardiology consulted for further evaluation. 2. Essential hypertension, blood pressure not well controlled. Resume home medications and continue to monitor blood pressure closely 3. Non-ST elevation [place], type II. Most likely secondary to congestive heart failure and troponin leak. Patient was started on IV heparin drip awaiting cardiology recommendations. Probably can discontinue today. Today, I reviewed her medication list and lab work results. I would obtain ultrasound of the lower extremities to rule out DVT even though less likely I asked nursing staff to call pharmacy coordinator to put home medications in the computer
[2021-07-31 11:08] LABS: Basophils % (A) 0 %; Eosinophils # (A) 0.1 k/uL (0-0.7); Eosinophils % (A) 1 %; HCT 35.7 % (34.0-46.0); HGB 11.5 gm/dL (11.4-16.0); Lymphocytes # (A) 0.8 k/uL (1.0-4.8); Lymphocytes % (A) 17 %; MCH 26.9 pg (25.0-35.0); MCHC 32.1 g/dL (31.0-37.0); MCV 83.9 fL (80.0-100.0); Mean Platelet Volume 10.4; Monocytes # (A) 0.3 k/uL (0-1.0); Monocytes % (A) 7 %; Neutrophils # (A) 3.3 k/uL (1.3-7.7); Neutrophils % (A) 73 %; Platelet Count 206 k/uL (150-450); RBC 4.25 m/uL (3.80-5.40); RDW 15.1 % (11.5-15.5); WBC 4.6 k/uL (3.8-10.6)
[2021-07-31 11:20] LABS: INR 1.3 (<1.2); Partial Thromboplastin Time 53.1 sec (22.0-30.0)
[2021-07-31 11:58] LABS: Calcium 9.2 mg/dL (8.4-10.2); Magnesium 1.7 mg/dL (1.6-2.3); Potassium 2.9 mmol/L (3.5-5.1)
[2021-07-31] MEDS ORDERED: POTASSIUM CHLORIDE ER 20 MEQ TAB.ER PO STA (12:23)
[2021-07-31] MEDS ORDERED: POTASSIUM CHLORIDE 10 MEQ in WATER FOR INJECTION 1 100ML.BAG IVPB STA (12:23)
[2021-07-31 13:44] VITALS: BMI 27.8
--- NOTE | 2021-07-31 15:27 | CT ---
EXAMINATION TYPE: CODE STROKE: CTA head neck DATE OF EXAM: 07/31/2021 HISTORY: Change in mental status COMPARISON: None CT DLP: 400.3 mGycm. Automated Exposure Control for Dose Reduction was Utilized. TECHNIQUE: CTA scan of the neck is performed with IV Contrast, patient injected with 65 mL of Isovue 370, axial images are obtained, coronal and sagittal reformatted images are reviewed. 3D reconstruct ed images are created on an independent workstation and reviewed. FINDINGS: The brachiocephalic origins are widely patent. There is moderate calcified plaque the origins of the internal carotid arteries bilaterally resulting in mild bilateral stenoses. There is no common carotid artery stenosis or internal carotid artery st enosis intracranially. Intracranially, there is no segmental arterial occlusion or filling defect. 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 There are no vascular malformations. IMPRESSION: 1. Mild bilateral internal carotid artery stenoses at their origins secondary to calcified plaque. 2. 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 3. No occlusive disease intracranially. NASCET criteria was used in interpretation of this exam?
--- NOTE | 2021-07-31 15:27 | CT ---
EXAMINATION TYPE: CT brain wo con for TPA DATE OF EXAM: 07/31/2021 COMPARISON: 09/13/2019 INDICATION: Neuro deficit DLP: 1003.2 mGycm, Automated exposure control for dose reduction was used. CONTRAST: None CT of the brain is performed utilizing 3 mm thick sections through the posterior fossa and 3 mm thick sections through the remaining calvarium. Study is performed within 24 hours of arrival to the hosp [facility]. No abnormal hyperdensity is present to suggest an acute intracranial hemorrhage. No mass lesion is evident. Bilateral basal ganglion calcification is present. No acute infarcts are evident. There is an old infarct within the left occipital lobe. Periventricula r White matter confluent hypodensity is present likely on the basis of chronic white matter ischemic changes. Ventricles and sulci are appropriate for the patient age. Paranasal sinuses and mastoid air cells within the [id number] are clear. IMPRESSIONS: 1. Chronic appearing periventricular white matter ischemic changes. 2. Old left occipital lobe infarct. 3. If symptoms persist, MRI could further evaluate.
--- NOTE | 2021-07-31 15:27 | US ---
EXAMINATION TYPE: US venous doppler duplex LE DATE OF EXAM: 07/31/2021 10:37 AM COMPARISON: NONE CLINICAL HISTORY: r/o DVT. On heparin, swelling SIDE PERFORMED: Bilateral TECHNIQUE: The lower extremity deep venous system is examined utilizing real time linear array sonog alberto with graded compression, doppler sonography and color-flow sonography. VESSELS IMAGED: Common Femoral Vein Deep Femoral Vein Greater Saphenous Vein * Femoral Vein Popliteal Vein Small Saphenous Vein * Proximal Calf Veins (* superficial vessels) The deep venous systems of both lower extremities are patent and compressible with augmentable flow. Right Leg: Negative for DVT Left Leg: Negative for DVT IMPRESSION: Grayscale, color doppler, spectral doppler imaging performed of the deep veins of the lo wer extremities. There is normal flow, compressibility, vascular waveforms. No evidence of DVT of t he lower extremities.
[2021-07-31 16:07] LABS: Creatine Kinase MB 3.1 ng/mL (0.0-2.4)
[2021-07-31 16:25] LABS: Troponin I 0.111 ng/mL (0.000-0.034)
[2021-07-31] MEDS: POTASSIUM CHLORIDE 10 MEQ in WATER FOR INJECTION 1 100ML.BAG IVPB SCH ×3 (16:46→20:39)
[2021-07-31 22:01] LABS: Appearance,Urine Clear (Clear); Bilirubin,Urine Negative (Negative); Blood,Urine Negative (Negative); Color,Urine Light Yellow; Glucose,Urine (UA) Negative (Negative); Ketones,Urine Negative (Negative); Leukocyte Esterase,Urine Negative (Negative); Nitrite,Urine Negative (Negative); PH, Urine 5.5 (5.0-8.0); Protein,Urine Negative (Negative); Specific Gravity,Urine 1.011 (1.001-1.035); Urobilinogen,Urine <2.0 mg/dL (<2.0)
--- NOTE | 2021-07-31 22:36 | CONS ---
CONSULTATION DATE OF SERVICE: 07/31/2021. PURPOSE FOR CONSULTATION: Evaluate for confusion and odd behavior. HISTORY OF PRESENTING ILLNESS: The patient was not able to provide any reliable information about her current circumstances or factors leading to her coming into the hospital. Information was obtained from Nursing, the medical record and family. The patient is a 69-year-old female. She presented to the hospital with shortness of breath, possible congestive heart failure, hypertension, exertional dyspnea and lower extremity edema. According to Nursing, this morning the patient had an episode where her eyes seemed to roll back, she became non-communicative. There was a question of stroke. She had evaluation including CT scan that was unremarkable. After returning to the unit, the patient was somewhat withdrawn in her manner. At times she would make odd statements. She could be seemingly angry over unclear issues. For the most part, she has just been in her room and says very little. When I talked to her she would respond to a few questions with minimal answers. She did not give any information about her situation or factors that led to her coming to the hospital. Nursing did indicate that there was some question that she got into an argument with her son, with whom she lives, though there were no further details. I made a telephone contact with two of the patient's son. They indicate that the main issue they have been concerned about was that she had stopped taking some of her medications, she was getting swelling in her feet and she was having problems walking. They note that she has dementia. She lives at home with family. They report that there is someone with her 24 hours and that she has not had any safety issues at home. They note that generally she does not sleep at night, though will then sleep reasonably well during the day. They described that when she is up at night she spends time playing games on her telephone. They note that she has not had any significant or persistent mood issues, anxiety or depression. They note that occasionally she can get into an angry mood, though this is generally short-lived and not a significant problem. She has not had a past history of any mental health issues. She is not currently on any psychotropic medications. MENTAL STATUS: Patient was in her room lying in bed with her head somewhat up. She gave fair eye contact at best. She responded to a few questions. Some of the time when I would ask a question, she would look at me or look away and would not make an effort to respond to other questions. She would give one- or two-word responses, though she did not say much. She was not spontaneous or interactive. Her affect was blunted. She seemed to have somewhat of a scowl on her face. She had a dysphoric manner. She did not appear to be significantly distressed. There was no immediate indication for thought disorder. There was no indication for thoughts of harm. On cognitive exam, the patient was not able to respond to most of the questions. When I asked her where she was, she said "a clinic." She did not know the name of the facility. She said that she believed she was in [place]. She said she lived in [place]. She did not make an effort to say what the day, month or year was. She said she did not know when I asked who the president was. She reported no specific concerns at the time of the interview. ASSESSMENT: This 69-year-old female has a diagnosis of dementia. It is likely in the moderate range. According to family, she is safe and has 24-hour supervision in her home setting. She does not have a history of significant mental health issues. I would question whether some of the behavior that was observed by Nursing today may relate to just some level of confusion and misperception. She may feel intimidated and uncertain in the hospital setting. I will check in with her tomorrow, though there is no indication for any specific psychiatric intervention. She may benefit from cognitive- enhancing medications. [id number] / BRITTNEEN: [id number] /
[2021-08-01 05:29] LABS: Calcium 9.1 mg/dL (8.4-10.2); Magnesium 1.5 mg/dL (1.6-2.3); Potassium 3.2 mmol/L (3.5-5.1)
[2021-08-01] MEDS ORDERED: POTASSIUM CHLORIDE ER 20 MEQ TAB.ER PO STA ×2 (05:54→09:37)
[2021-08-01] MEDS: MAGNESIUM SULFATE-D5W PMX 1 GM in DEXTROSE/WATER 1 100ML.BAG IVPB SCH ×4 (06:08→11:22)
[2021-08-01] MEDS: FUROSEMIDE 10 MG/ML 4 ML VIAL IV SCH ×2 (07:10→20:21)
[2021-08-01] MEDS: SACUBITRIL/VALSARTAN 97 MG-103 MG TABLET PO SCH ×2 (07:35→20:21)
[2021-08-01] MEDS: ATORVASTATIN 40 MG TAB PO SCH (07:35)
[2021-08-01] MEDS: hydrALAZINE HCL 25 MG TAB PO SCH ×2 (07:36→20:21)
[2021-08-01] MEDS: METOPROLOL TARTRATE 50 MG TAB PO SCH ×2 (07:36→20:21)
[2021-08-01] MEDS: SPIRONOLACTONE 25 MG TAB PO SCH (07:36)
[2021-08-01] MEDS: ASPIRIN 81 MG PO SCH (07:36)
[2021-08-01] MEDS: ISOSORBIDE MONONITRATE ER 30 MG TAB.ER.24H PO SCH (07:36)
[2021-08-01] MEDS ORDERED: POTASSIUM CHLORIDE 10 MEQ in WATER FOR INJECTION 1 100ML.BAG IVPB STA (09:37)
--- NOTE | 2021-08-01 09:44 | P.CNNES ---
History of Present Illness Consult date: 08/01/21 Requesting physician: Jina Wells Reason for Consult: code stroke History of Present Illness: This is a 69-year-old woman with medical history of left occipital stroke, systolic congestive heart failure, essential hypertension, who presented emergency department with worsening shortness of breath and exertional dyspnea 07/29/2021. History was obtained from medical record and the patient's nurse since the patient is a poor historian. Neurology is consulted code stroke. During this hospital admission, patient was noted to have acute systolic congestive heart failure and had a non-ST elevation AK therefore she was on IV heparin drip. Per the patient note patient the last normal was 1 PM on the 07/31/2021 but then that she was aphasic and not following around 1:30pm that same and that's when the stroke code was activated. Patient NIH was 31. Patient CT of the head is reported as chronic appearing periventricular white matter ischemic changes. Old left occipital lobe infarct. If symptoms persist, MRI could further evaluate. Personally reviewed the CT of the head and there is no acute or subacute ischemia. The patient does have an old left occipital stroke. CT angiography of the head and neck was reported as mild bilateral internal carotid artery stenosis at the origin secondary to calcified plaque. 2.3 mm aneurysm at the anterior communicating artery. No occlusive disease intracranially. The nurse spoke with the stroke attending and no IV TPA since the patient was getting IV heparin drip for cardiac issues. He symptoms was improving according to the patient's nurse. Per patient's nurse patient patient's neurological condition is improving. She is currently oriented 2 per the patient's nurse and unknown her baseline mentation. Nurse has the number for the patient's son and attempted to call him but no response. Patient is stated to me that she is unaware that she had an old stroke. She stated that she's not on any medication at home. Currently she feels like she is doing well. She denies of any focal deficit. Patient denies of any headaches, nausea vomiting. She denies of any sensory loss. She does smoke tobacco on a daily basis at. She denies of any illicit drug use. She socially drinks alcohol. Some of the other workup in the hospital consisted of: Patient most recent vitals his blood pressure 135/66, heart rate of 74, respiratory of 20, temperature of 98.3 Fahrenheit oral and pulse ox of 93% room air. 2-D echo was reported as overall left ventricle systolic function was severely impaired with ejection fraction of 20-25%. Increase left atrial pressure grade 3 diastolic dysfunction. Left atrium is severely dilated. Aneurysmal intra- atrial septum. Severe mitral regurgitation. Severe tricuspid regurgitation. There is moderate to severe pulmonary hypertension. Inferior vena cava is dilated with no significant that ventricular collapse. There is severe global hypokinetic of left ventricle. EKG is reported as sinus rhythm with premature supper ventricular couplets with occasional premature ventricular complexes. Cannot rule out anterior infarct, age undetermined. Abnormal EKG. White blood cell is 4.6 thousand Sodium is 138, most recent creatinine is 1.36 and on presentation was 1.04 so it's trending up. Calcium is 9.1, magnesium is 1.5, AST of 46 and ALT of 33. In the hospital stay the patient was on heparin drip as stated that earlier and the PTT on 07/30/2021 was more than 200 yesterday it was 53.1 and most recent is 24.8. INR is 1.3 at. Cardiology is on board. Review of Systems Review of system: The 12 point system was reviewed and apparent positive and negative per HPI. Past Medical History Past Medical History: Heart Failure, Hyperlipidemia, Hypertension Additional Past Medical History / Comment(s): Sickle cell anemia, pt states she thinks she may have had a prior TIA History of Any Multi-Drug Resistant Organisms: None Reported Past Surgical History: Tubal Ligation Past Anesthesia/Blood Transfusion Reactions: No Reported Reaction Smoking Status: Current some day smoker - Past Family History Father Family Medical History: No Reported History Additional Family Medical History / Comment(s): Father was healthy Mother Family Medical History: Hypertension Medications and Allergies Home Medications Medication Instructions Recorded Confirmed Type No Known Home Medications 07/30/21 07/30/21 History Allergies Allergy/AdvReac Type Severity Reaction Status Date / Time No Known Allergies Allergy Verified 07/29/21 21:56 Physical Examination - Vital Signs Vital Signs: Vital Signs Temp Pulse Resp BP Pulse Ox 08/01/21 04:00 98.3 F 74 20 135/66 93 L 07/31/21 23:25 64 18 143/63 93 L 07/31/21 20:05 98.1 F 64 20 129/72 96 11/13/21 16:00 98.2 F 73 18 152/74 94 L 07/31/21 14:06 65 18 130/59 96 07/31/21 14:00 61 18 07/31/21 12:00 98.7 F 61 18 122/65 95 Intake and Output 07/31/21 08/01/21 08/01/21 22:59 06:59 14:59 Output Total 500 Balance -500 Output: Urine 500 Other: Voiding Method Toilet Toilet External Catheter External Catheter # Voids 2 # Bowel Movements 1 Weight 67.5 kg GENERAL: The patient is lying in bed and is not in acute distress. CHEST: The heart rate is regular rate rhythm. No murmurs to auscultation. No carotid bruit bilaterally. LUNG: Clear to auscultation bilaterally no wheezing noted throughout. Not labored breathing. ABDOMEN/GI: Bowel sounds present in all 4 quadrants. No tenderness to palpation throughout. INTEGUMENTARY: Erythema, edema of bilateral lower extremities and pain to touch. NEUROLOGICAL: Higher mental function: The patient is awake, alert, oriented to self and place. She was able to tell the month correctly. She could not tell me the year and even with options. She is following simple commands. She was able to name pen but upon showing watch or glasses she kept on saying pen (having preservation). Intact repitition. No neglect. Cranial nerves: The pupils are round, equal and reactive to light. Visual medina are hard to assess because of her cooperation (was attempted multiple times). Extraocular movement is intact no nystagmus is noted. Facial sensation is normal to touch throughout. The facial strength is normal throughout. Hearing is moderately decreased bilaterally to hand rub. Tongue is midline and moved [id number] without any difficulty. No dysarthria is noted. Shoulder shrug is normal bilaterally. Motor: Gait is deferred. The strength is 5 over 5 throughout uppers while lower was hard to assess because of her pain (has erythema and edma in lowers) but was able to lift above gravity briefly. Normal tone and bulk. Has non-sustained clonus of bilateral ankles (right > left). Cerebellum: Normal finger to nose bilaterally. Sensation: Sensation is normal to touch throughout. Reflexes (right/left):2+ throughout while the right ankle is 1+. Plantars are downgoing bilaterally. Results Urine Analysis negative for urinary tract infection. Levin virus PCR was not detected. - Laboratory Findings CBC and BMP: 07/31/21 10:45 08/01/21 04:59 Abnormal Lab Findings: Abnormal Labs 07/29/21 07/29/21 07/29/21 23:48 23:48 23:48 RBC Hgb Hct Lymphocytes # PT 12.8 H INR 1.2 H APTT Potassium BUN 20 H Creatinine Glucose 110 H Magnesium AST 46 H Alkaline Phosphatase 157 H CK-MB (CK-2) Troponin I 0.052 H* 07/30/21 07/30/21 07/30/21 04:04 05:39 07:39 RBC 3.76 L Hgb 10.3 L Hct 31.4 L Lymphocytes # 0.8 L PT INR APTT Potassium BUN Creatinine Glucose Magnesium AST Alkaline Phosphatase CK-MB (CK-2) Troponin I 0.067 H* 0.049 H* 07/30/21 07/30/21 07/30/21 07:42 12:27 19:27 RBC Hgb Hct Lymphocytes # PT 13.4 H INR 1.3 H APTT >200.0 H* 50.2 H Potassium BUN Creatinine Glucose Magnesium AST Alkaline Phosphatase CK-MB (CK-2) Troponin I 07/31/21 07/31/21 07/31/21 10:45 10:45 10:45 RBC Hgb Hct Lymphocytes # 0.8 L PT 13.0 H INR 1.3 H APTT 53.1 H Potassium 2.9 L BUN 20 H Creatinine 1.30 H Glucose 120 H Magnesium AST Alkaline Phosphatase CK-MB (CK-2) Troponin I 07/31/21 08/01/21 10:45 04:59 RBC Hgb Hct Lymphocytes # PT INR APTT Potassium 3.2 L BUN 20 H Creatinine 1.36 H Glucose 123 H Magnesium 1.5 L AST Alkaline Phosphatase CK-MB (CK-2) 3.1 H Troponin I 0.111 H* Assessment and Plan Assessment: * Acute Aphasia (and on examination continues to have some appears broca aphasia. On 07/31/2021 had NIH 31)---symptoms improving compared to yesterday. Likely due to acute ischemic stroke. No IV TPA since the patient was on anticoagulation. * History of Old left occipital stroke * Acute systolic congestive heart failure exacerbation * Acute kidney insufficiency * Mild Hypomagnesemia * Non-ST elevation AK and was on IV heparin drip * Essential hypertension * Medication non-compliance (per patient is not on any medication at home) * Nicotine use Plan: Ordered MRI of the brain Currently the patient is on aspirin 81 mg daily. I added Plavix 75mg daily in addition. Continue Lipitor 40 mg daily for secondary stroke prophylaxis Ordered lipid panel, hemoglobin A1c. Patient had a TSH of 3.07 on 2020 and therefore I will not repeated. Continue neuro checks On cardiac monitoring. Was notified so far has sinus rhythm and no a-fib or flutter. Consulted PT, OT and LABEL SEWER. Cardiology team is on board Patient was counseled on tobacco cessation. We'll defer the rest of the medical management to the primary team. For DVT prophylaxis consider subcu heparin or Lovenox and we'll defer that decision to the primary team. Upon discharge the patient needs to follow-up with her I'll just within 1-2 weeks as an outpatient. The plan is discussed with the patient's nurse. Thank you for the consultation. Dr. Cross will start neurology service tomorrow AM. Ronnie Preciado M.D. Neuro-hospitalist Time with Patient: Greater than 30
--- NOTE | 2021-08-01 10:52 | XR ---
EXAMINATION TYPE: XR ankle complete LT DATE OF EXAM: 08/01/2021 COMPARISON: None HISTORY: Pain TECHNIQUE: Three-view left ankle FINDINGS: No acute fractures or dislocations are evident. Ankle mortise is intact. Soft tissues are n ormal. Tiny plantar calcaneal heel spur is present. Follow up exams can be performed 7-10 days from acute trauma for continued pain. IMPRESSION: 1. No acute osseous abnormality left ankle.
[2021-08-01] MEDS: CLOPIDOGREL 75 MG TAB PO SCH (11:49)
[2021-08-01 12:31] LABS: Magnesium 2.1 mg/dL (1.6-2.3); Potassium 3.4 mmol/L (3.5-5.1)
--- NOTE | 2021-08-01 12:48 | P.PN ---
Subjective Progress Note Date: 08/01/21 HISTORY OF PRESENT ILLNESS This is a 69-year-old female with past medical history of sickle cell anemia, h ypertension, chronic systolic heart failure, hyperlipidemia, memory loss, tobacco use and dependence. Patient presented to the hospital due to increasing shortness of breath which she states have been going on for 2-3 days and worsening. She does not have home oxygen therapy. She is not sure if she gained any weight or had any lower extremity edema. Patient is very vague when answering any questions. She may have had some chest pain in the middle of her chest but not sure. She has an active smoker and is unclear if she smokes more than a few cigarettes per week but isn't smoking since her 20s. Patient does not follow with a hotel operations manager. Hemoglobin 10.3. INR 1.3. B UN 20 creatinine 1.04. Blood sugar 110. AST 46, alkaline phosphatase 157. Troponins 0.052, 0.067, 0.049. COVID-19 PCR not detected. Patient presented with blood pressure 160/91. Chest x-ray reveals mild heart failure with right pleural effusion and mild right basilar infiltrate. This appears increased from old exam. EKG sinus rhythm with PVCs. Echocardiogram reveals EF of 20-25% with severe global hypokinesia of the LV, mild concentric left hypertrophy, grade 3 diastolic dysfunction, aneurysmal intra-atrial septum, moderate aortic regurgitation, severe mitral regurgitation, severe tricuspid regurgitation, moderate to severe pulmonary hypertension. Patient has been started on IV Lasix 40 mg every 12 hours, hydralazine 25 mg twice daily, Imdur 30 mg daily, Lopressor 50 mg twice daily, Entresto 97 mg103 mg 1 twice daily, Aldactone 25 mg daily. It appears from the records, patient is not on any home medications. 08/01/2021: Code Stroke was called last night on this patient as patient was found to be unresponsive and a phasic subsequently symptoms completely resolved. Patient is sitting up in a chair today and denies any shortness of breath or chest pain. She does have underlying dementia and her son is supposed to bring in her home medications. IV Lasix has been decreased to once daily. Repeat potassium 3.4 and magnesium 2.1. PHYSICAL EXAMINATION Gen: This is a 69-year-old black female, sitting in recliner and appears to be in no acute distress. VS: Afebrile, heart rate 56, blood pressure 122/73, pulse ox 99% on room air. HEENT: Head is atraumatic, normocephalic. Pupils equal, round. Sclerae is anicteric. NECK: Supple. No JVD. No lymphadenopathy. No thyromegaly. LUNGS: Diminished in the bases. No wheezes or rhonchi. No intercostal retractions. HEART: Irregular rate and rhythm. No murmur. ABDOMEN: Soft. Bowel sounds are present. No masses. No tenderness. EXTREMITIES: 1+ pedal edema. No calf tenderness. NEUROLOGICAL: Patient is awake, alert and oriented x3. Cranial nerves 2 through 12 are grossly intact. ASSESSMENT Acute on chronic systolic heart failure Cardiomyopathy with EF of 20-25% Elevated troponins, ruled out acute coronary syndrome Uncontrolled hypertension Hyperlipidemia Active tobacco use and dependence Sickle cell anemia Poor short-term memory PLAN Continue IV Lasix 40 mg decreased frequency to daily, monitor I&O and daily weights, monitor electrolytes and renal function Maintain current cardiac medications as listed above Further recommendations to follow based upon clinical course Thank you kindly for this consultation. Nurse practitioner note has been reviewed, I agree with documented findings and plan of care. Patient was seen and examined. Objective - Vital Signs Vital signs: Vital Signs Temp 98.5 F 08/01/21 08:00 Pulse 70 08/01/21 08:00 Resp 19 08/01/21 08:00 BP 149/73 08/01/21 08:00 Pulse Ox 98 08/01/21 08:00 Intake & Output 07/31/21 08/01/21 08/01/21 18:59 06:59 18:59 Intake Total 90 Output Total 625 500 1 Balance -625 -500 89 Weight 66.8 kg 67.5 kg Intake: Oral 90 Output: Urine 625 500 Urine/Stool Mix 1 Other: Voiding Method Toilet Toilet Toilet External Catheter External Catheter External Catheter # Voids 1 2 # Bowel Movements 1 - Labs CBC & Chem 7: 07/31/21 10:45 08/01/21 11:43 Labs: Abnormal Lab Results - Last 24 Hours (Table) 07/31/21 07/31/21 07/31/21 Range/Units 10:45 10:45 10:45 Lymphocytes # 0.8 L (1.0-4.8) k/uL PT 13.0 H (9.0-12.0) sec INR 1.3 H (<1.2) APTT 53.1 H (22.0-30.0) sec Potassium 2.9 L (3.5-5.1) mmol/L BUN 20 H (7-17) mg/dL Creatinine 1.30 H (0.52-1.04) mg/dL Glucose 120 H (74-99) mg/dL Magnesium (1.6-2.3) mg/dL CK-MB (CK-2) (0.0-2.4) ng/mL Troponin I (0.000-0.034) ng/mL 07/31/21 08/01/21 Range/Units 10:45 04:59 Lymphocytes # (1.0-4.8) k/uL PT (9.0-12.0) sec INR (<1.2) APTT (22.0-30.0) sec Potassium 3.2 L (3.5-5.1) mmol/L BUN 20 H (7-17) mg/dL Creatinine 1.36 H (0.52-1.04) mg/dL Glucose 123 H (74-99) mg/dL Magnesium 1.5 L (1.6-2.3) mg/dL CK-MB (CK-2) 3.1 H (0.0-2.4) ng/mL Troponin I 0.111 H* (0.000-0.034) ng/mL
--- NOTE | 2021-08-01 14:35 | P.PN ---
Subjective Patient is doing well today. She is awake and alert. She had an episode of confusion last night requiring a code stroke called by nursing staff with reported NIH score of 31. Workup including computed tomography scan of the brain and CT angiogram were both unremarkable. Patient was seen and evaluated by neurology as well. She is back to her normal self today. No acute events otherwise reported by nursing staff. Objective - Vital Signs Vital signs: Vital Signs Temp 98.0 F 08/01/21 11:57 Pulse 56 L 08/01/21 13:57 Resp 18 08/01/21 13:57 BP 122/73 08/01/21 11:57 Pulse Ox 99 08/01/21 11:57 Intake & Output 07/31/21 08/01/21 08/01/21 18:59 06:59 18:59 Intake Total 90 Output Total 625 500 1 Balance -625 -500 89 Weight 66.8 kg 67.5 kg Intake: Oral 90 Output: Urine 625 500 Urine/Stool Mix 1 Other: Voiding Method Toilet Toilet Toilet External Catheter External Catheter External Catheter # Voids 1 2 2 # Bowel Movements 1 - Exam General: The patient is awake and alert, in no distress Eye: there is normal conjunctiva bilaterally. Neck: The neck is supple, there is no JVD. Cardiovascular: Normal S1-S2, no S3-S4, no murmurs. Respiratory: Lungs clear to auscultation bilaterally Gastrointestinal: Abdomen is soft, nontender Musculoskeletal: There is +3 edema. Neurological:. Speech is normal. Skin: Skin is warm and dry - Labs CBC & Chem 7: 07/31/21 10:45 08/01/21 11:43 Labs: Abnormal Lab Results - Last 24 Hours (Table) 07/31/21 08/01/21 08/01/21 Range/Units 10:45 04:59 11:43 Potassium 3.2 L 3.4 L (3.5-5.1) mmol/L BUN 20 H (7-17) mg/dL Creatinine 1.36 H (0.52-1.04) mg/dL Glucose 123 H (74-99) mg/dL Magnesium 1.5 L (1.6-2.3) mg/dL CK-MB (CK-2) 3.1 H (0.0-2.4) ng/mL Troponin I 0.111 H* (0.000-0.034) ng/mL Assessment and Plan Assessment: This is a 69-year-old female with complex past medical history noted below that presented to the emergency room with worsening shortness of breath and exertional dyspnea. Patient was evaluated in the ER and admitted to the hospital for further management of her medical problems noted below. 1. Acute systolic congestive heart failure exacerbation: Continue diuresis with IV Lasix 40 mg twice daily. Monitor electrolytes closely. Echocardiogram showed EF of 20-25%. Cardiology consulted for further evaluation. 2. Essential hypertension, blood pressure well controlled. Continue home medications and continue to monitor blood pressure closely 3. Non-ST elevation LA, type II. Most likely secondary to congestive heart failure and troponin leak. Seen and evaluated by cardiology 4. Transient episode of aphasia during this admission, now resolved. Patient was seen and evaluated by neurology. MRI ordered for further evaluation. Computed tomography scan of the head and CT angiogram of the head and neck both unremarkable. Plavix added by neurology to her current regimen. Today, I reviewed her medication list and lab work results. I would obtain ultrasound of the lower extremities to rule out DVT even though less likely I asked nursing staff to call pharmacy informatics manager to put home medications in the computer
[2021-08-01 17:59] LABS: Chol/HDL Ratio 1.61 Ratio; LDL Cholesterol,Calculated 20.3 mg/dL (0.0-131.0); VLDL Calculation 10.88 mg/dL (5.00-40.00)
--- NOTE | 2021-08-01 21:32 | CONS ---
CONSULTATION DATE OF SERVICE: 08/01/2021. PURPOSE FOR CONSULTATION: Evaluate for confusion and odd behavior. INTERVAL HISTORY: The patient has been doing fair. From a psychiatric standpoint, not much has changed in the last 24 hours. She has not had any further episodes of being aphasic or not responding to staff. When I talked with Nursing, they note that she seems to have an irritable manner where she makes negative comments and it seems that she does not want to be bothered by staff. Nursing also notes that she has odd behavior, such as hiding her insurance cards and other apparent valuables either in her blouse or in her underwear. She seems to have a very protective manner in that regard. Further, Nursing noted that they had contacted the patient's sons. The sons were supposed to bring bottles of her medications to the hospital. One son reported he could only find one bottle of medication, which was Aricept. Apparently the son also made the comment to Nursing that he did not want to come into the hospital, as he had plans to relax and watch football. When I talked to the patient today, she was a little more responsive than yesterday. She did answer some of the questions, though mostly she tended to give brief vague responses. She otherwise voiced no concerns or issues. She did show a little response to humor, though mostly she had a quiet manner. She appeared to pay attention to things going on around her. She did not make an effort to answer orientation questions. ASSESSMENT: I will continue the current diagnosis and treatment plan. From a psychiatric standpoint, it is not clear there are any immediate needs to be addressed. The patient did not appear to have significant issues with anxiety or mood disorder. There is a question as to how secure and supportive the home situation is. It may be appropriate to consider a referral to Protective Services. At this point, Psychiatry will sign off. Please re-consult Psychiatry with any further questions or concerns. MMODL / IJN: [id number] /
[2021-08-02] MEDS: FUROSEMIDE 10 MG/ML 4 ML VIAL IV SCH (06:37)
[2021-08-02 08:34] LABS: Calcium 9.5 mg/dL (8.4-10.2); Potassium 3.6 mmol/L (3.5-5.1)
[2021-08-02] MEDS: ISOSORBIDE MONONITRATE ER 30 MG TAB.ER.24H PO SCH (10:06)
[2021-08-02] MEDS: hydrALAZINE HCL 25 MG TAB PO SCH ×2 (10:06→20:13)
[2021-08-02] MEDS: CLOPIDOGREL 75 MG TAB PO SCH (10:06)
[2021-08-02] MEDS: METOPROLOL TARTRATE 50 MG TAB PO SCH ×2 (10:06→20:13)
[2021-08-02] MEDS: SACUBITRIL/VALSARTAN 97 MG-103 MG TABLET PO SCH ×2 (10:06→20:14)
[2021-08-02] MEDS: SPIRONOLACTONE 25 MG TAB PO SCH (10:06)
[2021-08-02] MEDS: ATORVASTATIN 40 MG TAB PO SCH (10:07)
[2021-08-02] MEDS: ASPIRIN 81 MG PO SCH (10:07)
--- NOTE | 2021-08-02 13:58 | P.PN ---
Subjective HISTORY OF PRESENT ILLNESS This is a 69-year-old female with past medical history of sickle cell anemia, hypertension, chronic systolic heart failure, cardiomyopathy known EF 20-25% in 2019, hyperlipidemia, memory loss, tobacco use and dependence. 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 Patient presented to the hospital on 07/29/21 due to increasing shortness of breath which she states have been going on for 2-3 days and worsening. Echocardiogram revealed EF of 20-25% with severe global hypokinesia of the LV, mild concentric left hypertrophy, grade 3 diastolic dysfunction, aneurysmal intra-atrial septum, moderate aortic regurgitation, severe mitral regurgitation, severe tricuspid regurgitation, moderate to severe pulmonary hypertension. Patient has been started on IV Lasix 40 mg every 12 hours, hydralazine 25 mg twice daily, Imdur 30 mg daily, Lopressor 50 mg twice daily, Entresto 97 mg103 mg 1 twice daily, Aldactone 25 mg daily. It appears from the records, patient is not on any home medications. 08/02/21: Patient seen at bedside, no acute distress. She denies any chest pain shortness of breath lightheadedness or dizziness. Her breathing has improved. She is currently maintained on IV Lasix 40 mg every 12 hours, hydralazine 25 mg twice daily, Imdur 30 mg daily, Lopressor 50 mg twice daily, Entresto 97 mg103 mg 1 twice daily, Aldactone 25 mg BID. 1.1L urine output over past 24 hours. PHYSICAL EXAMINATION Gen: This is a 69-year-old black female, sitting in recliner and appears to be in no acute distress. VS: Blood pressure 130/70, heart rate 61, afebrile oxygen saturation is 96% on room air HEENT: Head is atraumatic, normocephalic. Pupils equal, round. Sclerae is anicteric. NECK: Supple. No JVD. No lymphadenopathy. No thyromegaly. LUNGS: Diminished in the bases. No wheezes or rhonchi. No intercostal retractions. HEART: Irregular rate and rhythm. No murmur. ABDOMEN: Soft. Bowel sounds are present. No masses. No tenderness. EXTREMITIES: 1+ pedal edema. No calf tenderness. NEUROLOGICAL: Patient is awake, alert and oriented x3. ASSESSMENT Acute on chronic systolic heart failure Cardiomyopathy with EF of 20-25%, unclear it ischemic vs non-ischemic at this time Elevated troponins, ruled out acute coronary syndrome Uncontrolled hypertension Hyperlipidemia Active tobacco use and dependence Sickle cell anemia Poor short-term memory PLAN Transition to PO Lasix 40mg BID Increase aldactone to 50mg daily Monitor I&O and daily weights, monitor electrolytes and renal function Maintain current cardiac medications as listed above Patient most likely will need cardiac catheterization, this can be done as an outpatient Further recommendations to follow based upon clinical course On discharge recommend close follow up with Dr. Lu Nurse practitioner note has been reviewed, I agree with documented findings and plan of care. Patient was seen and examined. Objective - Vital Signs Vital signs: Vital Signs Temp 98.3 F 08/02/21 11:55 Pulse 61 08/02/21 11:55 Resp 18 08/02/21 11:55 BP 130/70 08/02/21 11:55 Pulse Ox 96 08/02/21 11:55 Intake & Output 08/01/21 08/02/21 08/02/21 18:59 06:59 18:59 Intake Total 90 10 Output Total 1 350 100 Balance 89 -350 -90 Weight 68.7 kg Intake: IV 10 Invasive Line 1 10 Oral 90 0 Output: Urine 350 100 Urine/Stool Mix 1 Other: Voiding Method Toilet Toilet Toilet External Catheter # Voids 2 2 1 - Labs CBC & Chem 7: 07/31/21 10:45 08/02/21 07:38 Labs: Abnormal Lab Results - Last 24 Hours (Table) 08/01/21 08/02/21 Range/Units 11:43 07:38 BUN 21 H (7-17) mg/dL Creatinine 1.52 H (0.52-1.04) mg/dL Glucose 113 H (74-99) mg/dL Hemoglobin A1c 6.8 H (4.0-6.0) %
[2021-08-02] MEDS: FUROSEMIDE 40 MG TAB PO SCH (15:07)
--- NOTE | 2021-08-02 17:11 | P.PN ---
Subjective Patient is doing fairly well today. No acute events overnight Objective - Vital Signs Vital signs: Vital Signs Temp 97.8 F 08/02/21 15:45 Pulse 61 08/02/21 15:45 Resp 16 08/02/21 15:45 BP 151/80 08/02/21 15:45 Pulse Ox 96 08/02/21 15:45 Intake & Output 08/01/21 08/02/21 08/02/21 18:59 06:59 18:59 Intake Total 90 10 Output Total 1 350 100 Balance 89 -350 -90 Weight 68.7 kg Intake: IV 10 Invasive Line 1 10 Oral 90 0 Output: Urine 350 100 Urine/Stool Mix 1 Other: Voiding Method Toilet Toilet Toilet External Catheter # Voids 2 2 1 - Exam General: The patient is awake and alert, in no distress Eye: there is normal conjunctiva bilaterally. Neck: The neck is supple, there is no JVD. Cardiovascular: Normal S1-S2, no S3-S4, no murmurs. Respiratory: Lungs clear to auscultation bilaterally Gastrointestinal: Abdomen is soft, nontender Musculoskeletal: There is +1-2 edema. Neurological:. Speech is normal. Skin: Skin is warm and dry - Labs CBC & Chem 7: 07/31/21 10:45 08/02/21 07:38 Labs: Abnormal Lab Results - Last 24 Hours (Table) 08/01/21 08/02/21 Range/Units 11:43 07:38 BUN 21 H (7-17) mg/dL Creatinine 1.52 H (0.52-1.04) mg/dL Glucose 113 H (74-99) mg/dL Hemoglobin A1c 6.8 H (4.0-6.0) % Assessment and Plan Assessment: This is a 69-year-old female with complex past medical history noted below that presented to the emergency room with worsening shortness of breath and exertional dyspnea. Patient was evaluated in the ER and admitted to the hospital for further management of her medical problems noted below. 1. Acute systolic congestive heart failure exacerbation: Transition Lasix to oral 40 mg twice a day. Monitor electrolytes closely. Echocardiogram showed EF of 20-25%. Cardiology consulted for further evaluation. 2. Essential hypertension, blood pressure well controlled. Continue home medications and continue to monitor blood pressure closely 3. Non-ST elevation HI, type II. Most likely secondary to congestive heart f ailure and troponin leak. Seen and evaluated by cardiology 4. Transient episode of aphasia during this admission, now resolved. Patient was seen and evaluated by neurology. MRI ordered for further evaluation. Computed tomography scan of the head and CT angiogram of the head and neck both unremarkable. Plavix added by neurology to her current regimen. Today, I reviewed her medication list and lab work results. I would obtain ultrasound of the lower extremities to rule out DVT even though less likely I asked nursing staff to [facility] medications in the computer
[2021-08-03 08:54] LABS: Calcium 9.4 mg/dL (8.4-10.2); Potassium 3.6 mmol/L (3.5-5.1)
[2021-08-03] MEDS ORDERED: LORazepam 2 MG/ML INJ IV STA (10:30)
--- NOTE | 2021-08-03 10:41 | P.PN ---
Subjective HISTORY OF PRESENT ILLNESS This is a 69-year-old female with past medical history of sickle cell anemia, hypertension, chronic systolic heart failure, cardiomyopathy known EF 20-25% in 2019, hyperlipidemia, memory loss, tobacco use and dependence. 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 Patient presented to the hospital on 07/29/21 due to increasing shortness of breath which she states have been going on for 2-3 days and worsening. Echocardiogram revealed EF of 20-25% with severe global hypokinesia of the LV, mild concentric left hypertrophy, grade 3 diastolic dysfunction, aneurysmal intra-atrial septum, moderate aortic regurgi tation, severe mitral regurgitation, severe tricuspid regurgitation, moderate to severe pulmonary hypertension. Patient has been started on IV Lasix 40 mg every 12 hours, hydralazine 25 mg twice daily, Imdur 30 mg daily, Lopressor 50 mg twice daily, Entresto 97 mg103 mg 1 twice daily, Aldactone 25 mg daily. It appears from the records, patient is not on any home medications. 08/03/2021 Patient seen and examined resting comfortably lying flat in bed in no acute distress. She has no symptoms of chest pain or shortness of breath. Blood pressure 127/72 heart rate 60 afebrile maintaining oxygen saturation on room air. Currently maintained on aspirin 81 mg daily, atorvastatin 40 mg daily, Pl avix 75 mg daily, Lasix 40 mg twice a day, hydralazine 25 mg twice a day, Imdur 30 mg daily, Lopressor 50 mg twice a day, Aldactone 50 mg daily and entresto 97/103 mg BID. PHYSICAL EXAMINATION Gen: This is a 69-year-old black female, sitting in recliner and appears to be in no acute distress. HEENT: Head is atraumatic, normocephalic. Pupils equal, round. Sclerae is anicteric. NECK: Supple. No JVD. No lymphadenopathy. No thyromegaly. LUNGS: Diminished in the bases. No wheezes or rhonchi. No intercostal retractions. HEART: Irregular rate and rhythm. No murmur. EXTREMITIES: trace bilateral pedal edema. No calf tenderness. ASSESSMENT Acute on chronic systolic heart failure Cardiomyopathy with EF of 20-25%, unclear it ischemic vs non-ischemic at this time Elevated troponins, ruled out acute coronary syndrome Uncontrolled hypertension Hyperlipidemia Active tobacco use and dependence Sickle cell anemia Poor short-term memory PLAN Continue current medical regimen. MRI pending. Overall stable on current medical regimen from a cardiac perspective. Ongoing medical management. Nurse practitioner note has been reviewed, I agree with documented findings and plan of care. Patient was seen and examined. Objective - Vital Signs Vital signs: Vital Signs Temp 98.0 F 08/03/21 04:00 Pulse 60 08/03/21 04:00 Resp 17 08/03/21 04:00 BP 127/72 08/03/21 04:00 Pulse Ox 94 L 08/03/21 04:00 Intake & Output 08/02/21 08/03/21 08/03/21 18:59 06:59 18:59 Intake Total 250 0 Output Total 100 Balance 150 0 Weight 68.7 kg Intake: IV 10 Invasive Line 1 10 Oral 240 0 Output: Urine 100 Other: Voiding Method Toilet Toilet # Voids 1 1 1 - Labs CBC & Chem 7: 07/31/21 10:45 08/03/21 08:21 Labs: Abnormal Lab Results - Last 24 Hours (Table) 08/03/21 Range/Units 08:21 BUN 25 H (7-17) mg/dL Creatinine 1.60 H (0.52-1.04) mg/dL Glucose 122 H (74-99) mg/dL
[2021-08-03] MEDS: ATORVASTATIN 40 MG TAB PO SCH (11:35)
[2021-08-03] MEDS: CLOPIDOGREL 75 MG TAB PO SCH (11:41)
[2021-08-03] MEDS: SACUBITRIL/VALSARTAN 97 MG-103 MG TABLET PO SCH ×3 (11:41→21:15)
[2021-08-03] MEDS: ISOSORBIDE MONONITRATE ER 30 MG TAB.ER.24H PO SCH (11:42)
[2021-08-03] MEDS: METOPROLOL TARTRATE 50 MG TAB PO SCH ×3 (11:42→20:42)
[2021-08-03] MEDS: FUROSEMIDE 40 MG TAB PO SCH ×3 (11:42→18:43)
[2021-08-03] MEDS: SPIRONOLACTONE 25 MG TAB PO SCH (11:42)
[2021-08-03] MEDS: hydrALAZINE HCL 25 MG TAB PO SCH ×3 (11:43→20:42)
[2021-08-03] MEDS: ASPIRIN 81 MG PO SCH (11:43)
--- NOTE | 2021-08-03 11:58 | MR ---
MR brain without contrast HISTORY: Stroke, aphasia Multiplanar multisequence imaging through the brain correlated to CT brain 07/31/2021, prior MR brain 09/14/2019 There is no restricted diffusion. Motion is present on the exam due to patient's claustrophobia. Area s of encephalomalacia, periventricular white matter hyperintensity on inversion recovery and T2-weigh cody sequences are again noted. No gross hemorrhage or hydrocephalus. Corpus callosum shows focal ence phalomalacia anteriorly similar to prior exam. Orbits show symmetric appearance. There is probable mu cous retention cyst within the right maxillary sinus similar to prior exam. There are expected vascul ar flow voids present. IMPRESSION: There is motion on the exam. Similar abnormal findings are suspected compared to prior ex am and most likely due to chronic small vessel ischemia.
--- NOTE | 2021-08-03 14:50 | US ---
EXAMINATION TYPE: US venous doppler duplex LE DATE OF EXAM: 08/03/2021 1:35 PM COMPARISON: NONE CLINICAL HISTORY: Edema r/o DVT. edema bilateral legs SIDE PERFORMED: bilateral TECHNIQUE: The lower extremity deep venous system is examined utilizing real time linear array sonog alberto with graded compression, doppler sonography and color-flow sonography. VESSELS IMAGED: Common Femoral Vein Deep Femoral Vein Greater Saphenous Vein * Femoral Vein Popliteal Vein Small Saphenous Vein * Proximal Calf Veins (* superficial vessels) There is normal flow, compressibility, vascular waveforms. Right Leg: no evidence of DVT Left Leg: no evidence of DVT IMPRESSION: No evident deep venous arthrosis within the lower extremities from the level of the knees centrally
--- NOTE | 2021-08-03 14:57 | PN ---
PROGRESS NOTE DATE OF SERVICE: 08/03/2021 This 69-year-old woman who was admitted with CHF exacerbation had ejection fraction about 20% to 25%. The patient had persistent lower leg edema and ultrasound of the leg was requested. The patient also had hypertension and transient episodes of dysphasia. MRI has been done today. The patient is drowsy after IV Ativan received during MRI scan at this time. Patient is being closely monitored. Past medical history reviewed. Review of systems could not be taken; the patient is drowsy. CURRENT MEDICATIONS: Reviewed. They include aspirin, Lipitor, Plavix, Lasix, Apresoline, Imdur, Lopressor, Entresto, Aldactone. Doses are reviewed. PHYSICAL EXAMINATION: The patient is stuporous, arousable. Pulse 64, blood pressure 160/85, respiration 18, temperature 97.9, pulse ox 98% on room air. HEENT: Conjunctivae normal. NECK: No jugular venous distention. CARDIOVASCULAR: S1, S2 muffled. RESPIRATION: Breath sounds diminished at the bases. A few scattered rhonchi and crackles. ABDOMEN: Soft, nontender. LEGS: No edema. No swelling. NERVOUS SYSTEM: Diffusely weak. LABS: Creatinine 1.6. Sodium noted. ASSESSMENT: 1. Congestive heart failure, acute exacerbation, with acute on chronic systolic dysfunction, ejection fraction 20% to 25%. 2. Change in mental status and dysphasia. Rule out acute stroke. 3. Hypertension. 4. Bilateral leg edema. 5. Hcz-BK-[id number]-elevation myocardial infarction, type 2. 6. Acute renal failure with acute tubular necrosis. 7. Hypokalemia. 8. Anemia, normocytic anemia of chronic disease. 9. History of sickle cell anemia. 10.History of transient ischemic attack. 11.Gait dysfunction. 12.History of continued ongoing nicotine dependence. RECOMMENDATIONS AND DISCUSSION: This 69-year-old woman who presented with multiple complex medical issues, we will monitor the patient closely, continue the current medications, continue with symptomatic treatment. Recommend repeat labs. Await MRI reports. Ultrasound of the legs. Continue the neuro checks. PT/OT evaluation. Guarded prognosis. Further recommendations to follow. Continue with speech pathology. See orders for further details. MMODL / IJN: [id number] /
--- NOTE | 2021-08-03 20:17 | P.PN ---
Subjective Progress Note Date: 08/03/21 Patient was seen for a follow-up. Patient initially seen by Dr. Ronnie Preciado. Please refer to his note for details. Patient is a 69-year-old female, with history of left occipital CVA in the past, noncompliant, also has CHF, had a stroke code activated on 08/01/2021 and her NIH stroke scale was 31. Patient was not a candidate for TPA. CTA of the head was negative. MRI revealed old left temporal occipital CVA. Patient was given Ativan 1 mg IV for MRI, now severely sedated. Objective - Vital Signs Vital signs: Vital Signs Temp 97.6 F 08/03/21 18:44 Pulse 63 08/03/21 18:44 Resp 16 08/03/21 18:44 BP 160/88 08/03/21 18:44 Pulse Ox 97 08/03/21 18:44 Intake & Output 08/03/21 08/03/21 08/04/21 06:59 18:59 06:59 Intake Total 10 Output Total 250 Balance -240 Weight 68.7 kg Intake: IV 10 Invasive Line 1 10 Oral 0 Output: Urine 250 Other: Voiding Method Toilet Toilet # Voids 1 1 # Bowel Movements 1 - Exam Patient is an elderly Afro-Cymro female, who is sleeping at this time. Patient has received Ativan. - Labs CBC & Chem 7: 07/31/21 10:45 08/03/21 08:21 Labs: Abnormal Lab Results - Last 24 Hours (Table) 08/03/21 Range/Units 08:21 BUN 25 H (7-17) mg/dL Creatinine 1.60 H (0.52-1.04) mg/dL Glucose 122 H (74-99) mg/dL Assessment and Plan Assessment: * Acute Aphasia (and on examination continues to have some appears broca aphasia. On 07/31/2021 had NIH 31)---symptoms were improving. Today examination limited because patient is sedated for MRI. * History of Old left occipital stroke * Acute systolic congestive heart failure exacerbation * Acute kidney insufficiency * Mild Hypomagnesemia * Non-ST elevation MD and was on IV heparin drip * Essential hypertension * Medication non-compliance (per patient is not on any medication at home) * Nicotine use Plan: * MRI of the brain was motion degraded exam. Again seen are areas of encephalomalacia, periventricular white matter hyperintensity on inversion recovery and T2-weighted sequences are again noted. No gross hemorrhage or hydrocephalus. * 2-D echo was reported as overall left ventricle systolic function was severely impaired with ejection fraction of 20-25%. Increase left atrial pressure grade 3 diastolic dysfunction. Left atrium is severely dilated. Aneurysmal intra-atrial septum. Severe mitral regurgitation. Severe tricuspid regurgitation. There is moderate to severe pulmonary hypertension. Inferior vena cava is dilated with no significant that ventricular collapse. There is severe global hypokinetic of left ventricle. Cardiology on board. * Currently the patient is on aspirin [address] Preciado has added Plavix 75mg daily in addition, which will be continued. Continue Lipitor 40 mg daily for secondary stroke prophylaxis * Venous Doppler of lower extremity negative for DVT. * Telemetry monitoring showing sinus bradycardia, heart rate in the 40s, some pauses, bundle-branch block, transient run of V. tach, PSVT. Bigeminy and trigeminy. Cardiology on board. * Lipid panel with cholesterol 82, LDL 20, HDL 51 and triglycerides 54. * Hemoglobin A1c 6.8, well controlled. * Upon discharge the patient needs to follow-up with her neurologist within 1-2 weeks as an outpatient.
[2021-08-03 23:36] VITALS: RESP 16
[2021-08-04 07:54] LABS: Basophils % (A) 0 %; Eosinophils # (A) 0.1 k/uL (0-0.7); Eosinophils % (A) 2 %; HCT 35.5 % (34.0-46.0); HGB 11.3 gm/dL (11.4-16.0); Lymphocytes # (A) 1.1 k/uL (1.0-4.8); Lymphocytes % (A) 25 %; MCH 26.5 pg (25.0-35.0); MCHC 31.9 g/dL (31.0-37.0); MCV 83.1 fL (80.0-100.0); Mean Platelet Volume 11.1; Monocytes # (A) 0.4 k/uL (0-1.0); Monocytes % (A) 8 %; Neutrophils # (A) 2.9 k/uL (1.3-7.7); Neutrophils % (A) 62 %; Platelet Count 182 k/uL (150-450); RBC 4.27 m/uL (3.80-5.40); RDW 15.2 % (11.5-15.5); WBC 4.6 k/uL (3.8-10.6)
[2021-08-04 08:01] LABS: Calcium 9.5 mg/dL (8.4-10.2); Potassium 3.9 mmol/L (3.5-5.1)
[2021-08-04] MEDS: ATORVASTATIN 40 MG TAB PO SCH (08:31)
[2021-08-04] MEDS: METOPROLOL TARTRATE 50 MG TAB PO SCH (08:31)
[2021-08-04] MEDS: CLOPIDOGREL 75 MG TAB PO SCH (08:32)
[2021-08-04] MEDS: FUROSEMIDE 40 MG TAB PO SCH ×2 (08:32→16:27)
[2021-08-04] MEDS: ISOSORBIDE MONONITRATE ER 30 MG TAB.ER.24H PO SCH (08:32)
[2021-08-04] MEDS: ASPIRIN 81 MG PO SCH (08:32)
[2021-08-04] MEDS: hydrALAZINE HCL 25 MG TAB PO SCH (08:32)
[2021-08-04] MEDS: SACUBITRIL/VALSARTAN 97 MG-103 MG TABLET PO SCH (08:32)
[2021-08-04] MEDS: SPIRONOLACTONE 25 MG TAB PO SCH (08:32)
[2021-08-04] MEDS ORDERED: POTASSIUM CHLORIDE ER 20 MEQ TAB.ER PO STA (09:02)
[2021-08-04] MEDS ORDERED: AMIODARONE 200 MG TAB PO SCH (09:15)
--- NOTE | 2021-08-04 09:18 | P.PN ---
Subjective HISTORY OF PRESENT ILLNESS This is a 69-year-old female with past medical history of sickle cell anemia, hypertension, chronic systolic heart failure, cardiomyopathy known EF 20-25% in 2019, hyperlipidemia, memory loss, tobacco use and dependence. 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 Patient presented to the hospital on 07/29/21 due to increasing shortness of breath which she states have been going on for 2-3 days and worsening. Echocardiogram revealed EF of 20-25% with severe global hypokinesia of the LV, mild concentric left hypertrophy, grade 3 diastolic dysfunction, aneurysmal intra-atrial septum, moderate aortic regurgi tation, severe mitral regurgitation, severe tricuspid regurgitation, moderate to severe pulmonary hypertension. Patient has been started on IV Lasix 40 mg every 12 hours, hydralazine 25 mg twice daily, Imdur 30 mg daily, Lopressor 50 mg twice daily, Entresto 97 mg103 mg 1 twice daily, Aldactone 25 mg daily. It appears from the records, patient is not on any home medications. 08/04/2021 Pt seen and examined laying flat in bed in no acute distress. She denies symptoms of chest pain, shortness of breath, palpitations or dizziness. Blood pressure 134/64 heart rate 71. Telemetry tracings reveal sinus rhythm with episodes of non-sustained ventricular tachycardia. Laboratory data reviewed, WBC 4.6, hemoglobin 11.3 and platelets 182, sodium 140, potassium 3.9, creatinine 1.52. MRI of the brain revealed old left temporal occipital CVA with no acute findings. PHYSICAL EXAMINATION Gen: This is a 69-year-old black female, sitting in recliner and appears to be in no acute distress. HEENT: Head is atraumatic, normocephalic. Pupils equal, round. Sclerae is anicteric. NECK: Supple. No JVD. No lymphadenopathy. No thyromegaly. LUNGS: Diminished in the bases. No wheezes or rhonchi. No intercostal retractions. HEART: Irregular rate and rhythm. No murmur. EXTREMITIES: trace bilateral pedal edema. No calf tenderness. ASSESSMENT Acute on chronic systolic heart failure Cardiomyopathy with EF of 20-25%, unclear it ischemic vs non-ischemic at this time Elevated troponins, ruled out acute coronary syndrome Uncontrolled hypertension Hyperlipidemia Active tobacco use and dependence Sickle cell anemia Poor short-term memory Non-sustained VT PLAN Add amiodarone 200 mg BID due to VT. Give one dose of PO potassium today. Stable for discharge from a cardiac perspective, follow up with Dr. Lu upon discharge. Nurse practitioner note has been reviewed, I agree with documented findings and plan of care. Patient was seen and examined. Objective - Vital Signs Vital signs: Vital Signs Temp 97.1 F L 08/04/21 08:24 Pulse 71 08/04/21 08:24 Resp 16 08/04/21 08:24 BP 134/64 08/04/21 08:24 Pulse Ox 94 L 08/04/21 08:24 Intake & Output 08/03/21 08/04/21 08/04/21 18:59 06:59 18:59 Intake Total 10 Output Total 250 Balance -240 Weight 64.7 kg Intake: IV 10 Invasive Line 1 10 Oral 0 Output: Urine 250 Other: Voiding Method Toilet Toilet # Voids 1 1 # Bowel Movements 1 - Labs CBC & Chem 7: 08/04/21 07:17 08/04/21 07:17 Labs: Abnormal Lab Results - Last 24 Hours (Table) 08/03/21 08/04/21 08/04/21 Range/Units 08:21 07:17 07:17 Hgb 11.3 L (11.4-16.0) gm/dL BUN 25 H 26 H (7-17) mg/dL Creatinine 1.60 H 1.52 H (0.52-1.04) mg/dL Glucose 122 H 138 H (74-99) mg/dL
[2021-08-04 12:03] VITALS: BP 107/53; PULSE 56; TEMP 98
--- NOTE | 2021-08-05 09:00 | P.DS ---
Providers Date of admission: 07/31/21 12:01 Expected date of discharge: 08/04/21 Attending physician: Phillip Chatman Consults: 07/30/21 15:25 Consult Physician Routine Consulting Provider: Pauline Lee Consult Reason/Comments: CHF Do you want consulting provider notified?: Yes 07/31/21 15:24 Consult Physician Routine Consulting Provider: González Vaughan Consult Reason/Comments: eval and treat. Do you want consulting provider notified?: Yes 07/31/21 15:25 Consult Physician Routine Consulting Provider: Ronnie Preciado Consult Reason/Comments: code stroke Do you want consulting provider notified?: Yes Primary care physician: Stated None Hospital Course: Final diagnosis Digestive heart failure acute exacerbation with acute on chronic systolic dysfunction, ejection fraction 20-25% Change in mental status and dysphasia rule out acute stroke Hypertension bilateral leg edema Non-ST segment elevation myocardial infarction, type II Acute renal failure with acute tubular necrosis hypokalemia Anemia, normocytic anemia of chronic disease History of sickle cell anemia History of transient ischemic attack Gait dysfunction history of continued ongoing nicotine dependence Discharge disposition Patient is being discharged in a stable condition with guarded prognosis to home. Patient will follow-up with Dr. Chatman in the outpatient setting upon discharge this Monday as scheduled. Patient is to follow-up with cardiology and urology in the outpatient setting. Will continue with [facility] upon discharge and recommend repeat labs to monitor CBC, BMP. Will continue on Lasix 40 mg twice daily and close outpatient following of kidney functions. Total time taken is greater than 35 minutes. Hospital course This is a 69-year-old female who was recently admitted with CHF acute exacerbation with an ejection fraction of about 20-25%. Patient had persistent lower leg swelling and ultrasound of the leg was done which was negative for DVT patient also found to have hypertension with transient episodes of dysphasia an MRI was done owing repeated areas of encephalomalacia with periventricular white matter hyper intensity sequences again noted with no gross hemorrhage or hydrocephalus, the corpus callosum shows focal encephalomalacia anteriorly similar to previous exam and the orbits are symmetric in appearance and there is probable mucus retention cyst within the right maxillary sinus similar to previous exam and findings are most likely due to chronic small vessel ischemia. Neurology evaluated the patient recommending outpatient neurological services in 1-2 weeks and patient will continue on aspirin and statin and other cardiac medications have been initiated and patient will need close follow-up with cardiology in 1-2 weeks. Encouraged the patient to avoid tobacco use and strongly recommended with medication compliance. Patient is asking when she can go home today. Currently no reports of chest pain, shortness of breath, or palpitations. Patient is afebrile. No reports of nausea or vomiting and patient is tolerating diet. Patient will be discharged home today. Guarded prognosis. On exam vital signs are stable. Cardio S1, S2 are muffled. Respiratory system shows diminished breath sounds at the bases with no wheezing or rhonchi noted. Abdomen is soft and nontender. Nervous system shows no focal deficits. Please refer to medication reconciliation sheet for a list of medications. Patient Condition at Discharge: Fair Plan - Discharge Summary Discharge Rx Participant: No New Discharge Prescriptions: New Sacubitril/Valsartan [Entresto 97 mg-103 mg Tablet] 1 each PO BID #60 tablet Amiodarone [Cordarone] 200 mg PO BID 30 Days #60 tab Spironolactone [Aldactone] 50 mg PO DAILY #30 tab hydrALAZINE HCL [Apresoline] 25 mg PO BID #60 tab Aspirin 81 mg PO DAILY #30 tab Isosorbide Mononitrate ER [Imdur] 30 mg PO DAILY #30 tablet Furosemide [Lasix] 40 mg PO BID@0900,1600 #60 tab Atorvastatin [Lipitor] 40 mg PO DAILY 30 Days #30 tab Metoprolol Tartrate [Lopressor] 50 mg PO BID #60 tab Clopidogrel [Plavix] 75 mg PO DAILY 30 Days #30 tab Continue Donepezil HCl [Aricept] 10 mg PO DAILY Discharge Medication List Donepezil HCl [Aricept] 10 mg PO DAILY 08/01/21 [History] Amiodarone [Cordarone] 200 mg PO BID 30 Days #60 tab 08/04/21 [Rx] Aspirin 81 mg PO DAILY #30 tab 08/04/21 [Rx] Atorvastatin [Lipitor] 40 mg PO DAILY 30 Days #30 tab 08/04/21 [Rx] Clopidogrel [Plavix] 75 mg PO DAILY 30 Days #30 tab 08/04/21 [Rx] Furosemide [Lasix] 40 mg PO BID@0900,1600 #60 tab 08/04/21 [Rx] Isosorbide Mononitrate ER [Imdur] 30 mg PO DAILY #30 tablet 08/04/21 [Rx] Metoprolol Tartrate [Lopressor] 50 mg PO BID #60 tab 08/04/21 [Rx] Sacubitril/Valsartan [Entresto 97 mg-103 mg Tablet] 1 each PO BID #60 tablet 08/04/21 [Rx] Spironolactone [Aldactone] 50 mg PO DAILY #30 tab 08/04/21 [Rx] hydrALAZINE HCL [Apresoline] 25 mg PO BID #60 tab 08/04/21 [Rx] Follow up Appointment(s)/Referral(s): Phillip Chatman MD [STAFF PHYSICIAN] - 08/06/21 12:30 pm [facility], [NON-STAFF] - (AGENCY WILL CONTACT YOU.) Kathy Soto MD [Medical Doctor] - 1 Week (OFFICE REQUIRES NEW PATIENT TO CALL AND SCHEDULE OWN APPOINTMENT, PLEASE CALL AND MAKE AN APPOINTMENT.) Niraj Lu MD [STAFF PHYSICIAN] - 1 Week (OFFICE WILL CALL WITH APPOINTMENT DATE AND TIME.) Ambulatory/Diagnostic Orders: Complete Blood Count w/diff [LAB.AMB] Time Frame: 3 Days, Location: None Selected Patient Instructions/Handouts: Heart Failure (DC), How to Stop Smoking (DC), Hypertension (DC), Stroke (DC) Activity/Diet/Wound Care/Special Instructions: Activity is limited until follow-up Follow-up with primary care provider on discharge Follow-up neurology outpatient Follow-up cardiology outpatient Recommend repeat labs in 2-3 days Continue taking medications as prescribed Continue heart healthy diet Avoid tobacco use Discharge Disposition: HOME WITH HOME HEALTH SERVICES
== END 2021-08-04 19:00 | disposition home health service (06) | DRG 280 ==
LOC: EC 21:27 → 6NMEDSUR 07-30 01:00 → 3SCARD 07-30 19:32 → OBSVTOIN 07-31 12:01
PROVIDERS: ADMIT Family Medicine; ATTEND Family Medicine
DX: I11.0 Hypertensive heart disease with heart failure (principal); I21.A1 Myocardial infarction type 2; I50.23 Acute on chronic systolic (congestive) heart failure; I63.9 Cerebral infarction, unspecified; N17.0 Acute kidney failure with tubular necrosis; R47.01 Aphasia; I47.2 Ventricular tachycardia; I27.20 Pulmonary hypertension, unspecified; D57.1 Sickle-cell disease without crisis; Z20.822 Contact with and (suspected) exposure to COVID-19; I49.3 Ventricular premature depolarization; I65.23 Occlusion and stenosis of bilateral carotid arteries; D63.8 Anemia in other chronic diseases classified elsewhere; E78.5 Hyperlipidemia, unspecified; E83.42 Hypomagnesemia; E87.6 Hypokalemia; F03.90 Unspecified dementia, unspecified severity, without behavioral disturbance, psychotic disturbance, mood disturbance, and anxiety; F17.210 Nicotine dependence, cigarettes, uncomplicated; I08.3 Combined rheumatic disorders of mitral, aortic and tricuspid valves; I42.9 Cardiomyopathy, unspecified; R26.9 Unspecified abnormalities of gait and mobility; R29.731 NIHSS score 31; Z79.02 Long term (current) use of antithrombotics/antiplatelets; Z79.82 Long term (current) use of aspirin; Z79.899 Other long term (current) drug therapy; Z82.49 Family history of ischemic heart disease and other diseases of the circulatory system; Z86.73 Personal history of transient ischemic attack (TIA), and cerebral infarction without residual deficits; Z91.14 Patient's other noncompliance with medication regimen; Z91.19 Patient's noncompliance with other medical treatment and regimen; Z98.51 Tubal ligation status
CPT/HCPCS: 36415; 70450; 70496; 70498; 70551; 71045; 80048; 80053; 80061; 81003; 82550; 82553; 83036; 83605; 83735; 83880; 84132; 84484; 85025; 85610; 85730; 87635; 93005; 93306; 93970; 99285

== ENCOUNTER 2021-09-11 14:40 | Emergency (ER) | payer MEDICARE ==
[2021-09-11 16:03] VITALS: TEMP 98.5
[2021-09-11 18:18] LABS: Basophils % (A) 0 %; Eosinophils # (A) 0.1 k/uL (0-0.7); Eosinophils % (A) 2 %; HCT 42.7 % (34.0-46.0); HGB 13.9 gm/dL (11.4-16.0); Lymphocytes % (A) 19 %; MCH 26.2 pg (25.0-35.0); MCHC 32.6 g/dL (31.0-37.0); MCV 80.3 fL (80.0-100.0); Mean Platelet Volume 9.6; Monocytes # (A) 0.2 k/uL (0-1.0); Monocytes % (A) 4 %; Neutrophils # (A) 4.1 k/uL (1.3-7.7); Neutrophils % (A) 75 %; Platelet Count 225 k/uL (150-450); RBC 5.32 m/uL (3.80-5.40); RDW 15.8 % (11.5-15.5); WBC 5.5 k/uL (3.8-10.6)
[2021-09-11] MEDS: SODIUM CHLORIDE 0.9% 1,000 ML IV STA (18:28)
[2021-09-11] MEDS: ONDANSETRON 4 MG/2 ML VIAL IVP STA (18:28)
[2021-09-11 18:33] LABS: Albumin 4.6 g/dL (3.5-5.0); Calcium 9.7 mg/dL (8.4-10.2); Total Bilirubin 0.9 mg/dL (0.2-1.3); Total Protein 8.9 g/dL (6.3-8.2)
[2021-09-11 18:38] LABS: Potassium 4.6 mmol/L (3.5-5.1)
--- NOTE | 2021-09-11 19:51 | ED ---
Nausea/Vomiting/Diarrhea HPI - General Chief complaint: Nausea/Vomiting/Diarrhea Stated complaint: Nausea/Vomiting Time Seen by Provider: 09/11/21 17:22 Source: patient, RN notes reviewed Mode of arrival: wheelchair Limitations: no limitations - History of Present Illness Initial comments: Patient is a 69-year-old female that presents to the emergency department complaining of nausea vomiting 2 days. Son notes that she's been having a difficult time keeping food and or food down. Patient notes she is otherwise feeling well just concerned that she might be dehydrated. Patient was otherwise well-appearing in no apparent distress. She denied any chest pain shortness of breath headache diarrhea constipation fever fatigue chills. - Related Data Home Medications Medication Instructions Recorded Confirmed Donepezil HCl [Aricept] 10 mg PO DAILY 08/01/21 09/11/21 Sacubitril/Valsartan [Entresto 97 1 tab PO BID 09/11/21 09/11/21 mg-103 mg Tablet] Spironolactone [Aldactone] 25 mg PO DAILY 09/11/21 09/11/21 Previous Rx's Medication Instructions Recorded Amiodarone [Cordarone] 200 mg PO BID 30 Days #60 tab 08/04/21 Aspirin 81 mg PO DAILY #30 tab 08/04/21 Atorvastatin [Lipitor] 40 mg PO DAILY 30 Days #30 tab 08/04/21 Clopidogrel [Plavix] 75 mg PO DAILY 30 Days #30 tab 08/04/21 Furosemide [Lasix] 40 mg PO BID@0900,1600 #60 tab 08/04/21 Isosorbide Mononitrate ER [Imdur] 30 mg PO DAILY #30 tablet 08/04/21 Metoprolol Tartrate [Lopressor] 50 mg PO BID #60 tab 08/04/21 hydrALAZINE HCL [Apresoline] 25 mg PO BID #60 tab 08/04/21 Allergies Allergy/AdvReac Type Severity Reaction Status Date / Time No Known Allergies Allergy Verified 09/11/21 19:17 Review of Systems ROS Statement: Those systems with pertinent positive or pertinent negative responses have been documented in the HPI. ROS Other: All systems not noted in ROS Statement are negative. Past Medical History Past Medical History: Heart Failure, Hyperlipidemia, Hypertension Additional Past Medical History / Comment(s): Sickle cell anemia, pt states she thinks she may have had a prior TIA History of Any Multi-Drug Resistant Organisms: None Reported Past Surgical History: Tubal Ligation Past Anesthesia/Blood Transfusion Reactions: No Reported Reaction Past Psychological History: No Psychological Hx Reported Smoking Status: Current some day smoker Past Alcohol Use History: None Reported Past Drug Use History: None Reported - Past Family History Father Family Medical History: No Reported History Additional Family Medical History / Comment(s): Father was healthy Mother Family Medical History: Hypertension General Exam Limitations: no limitations General appearance: alert, in no apparent distress Head exam: Present: atraumatic, normocephalic, normal inspection Eye exam: Present: normal appearance, PERRL, EOMI. Absent: scleral icterus, conjunctival injection, periorbital swelling ENT exam: Present: normal exam, mucous membranes moist Neck exam: Present: normal inspection. Absent: tenderness, meningismus, lymphadenopathy Respiratory exam: Present: normal lung sounds bilaterally. Absent: respiratory distress, wheezes, rales, rhonchi, stridor Cardiovascular Exam: Present: regular rate, normal rhythm, normal heart sounds. Absent: systolic murmur, diastolic murmur, rubs, gallop, clicks GI/Abdominal exam: Present: soft, normal bowel sounds. Absent: distended, tenderness, guarding, rebound, rigid Extremities exam: Present: normal inspection, full ROM, normal capillary refill. Absent: tenderness, pedal edema, joint swelling, calf tenderness Back exam: Present: normal inspection Neurological exam: Present: alert, oriented X3, CN II-XII intact Psychiatric exam: Present: normal affect, normal mood Skin exam: Present: warm, dry, intact, normal color. Absent: rash Course Vital Signs 09/11/21 15:59 Temperature 98.5 F Pulse Rate 55 L Respiratory 16 Rate Blood Pressure 157/80 O2 Sat by Pulse 99 Oximetry Medical Decision Making - Medical Decision Making 6-year-old female with nausea vomiting for the past 2 days. Covid test, influenza test, basic labs, 1 L normal saline, 4 mg Zofran ordered. Labs unremarkable initial mild dehydration. Covid and influenza negative. Patient will be given a Zofran starter pack and discharged home. Patient is removed with this plan. Line case discussed with Dr. García. - Lab Data Result diagrams: 09/11/21 18:10 09/11/21 18:10 Lab Results 09/11/21 09/11/2109/11/21 Range/Units 16:04 18:10 18:10 WBC 5.5 (3.8-10.6) k/uL RBC 5.32 (3.80-5.40) m/uL Hgb 13.9 (11.4-16.0) gm/dL Hct 42.7 (34.0-46.0) % MCV 80.3 (80.0-100.0) fL MCH 26.2 (25.0-35.0) pg MCHC 32.6 (31.0-37.0) g/dL RDW 15.8 H (11.5-15.5) % Plt Count 225 (150-450) k/uL MPV 9.6 Neutrophils % 75 % Lymphocytes % 19 % Monocytes % 4 % Eosinophils % 2 % Basophils % 0 % Neutrophils # 4.1 (1.3-7.7) k/uL Lymphocytes # 1.0 (1.0-4.8) k/uL Monocytes # 0.2 (0-1.0) k/uL Eosinophils # 0.1 (0-0.7) k/uL Basophils # 0.0 (0-0.2) k/uL Sodium 136 L (137-145) mmol/L Potassium 4.6 (3.5-5.1) mmol/L Chloride 99 (98-107) mmol/L Carbon Dioxide 23 (22-30) mmol/L Anion Gap 14 mmol/L BUN 27 H (7-17) mg/dL Creatinine 1.35 H (0.52-1.04) mg/dL Est GFR (CKD-EPI)AfAm 46 (>60 ml/min/1.73 sqM) Est GFR (CKD-EPI)NonAf 40 (>60 ml/min/1.73 sqM) Glucose 136 H (74-99) mg/dL Calcium 9.7 (8.4-10.2) mg/dL Total Bilirubin 0.9 (0.2-1.3) mg/dL AST 41 H (14-36) U/L ALT 24 (4-34) U/L Alkaline Phosphatase 147 H (38-126) U/L Total Protein 8.9 H (6.3-8.2) g/dL Albumin 4.6 (3.5-5.0) g/dL Amylase 99 (30-110) U/L Lipase 186 (23-300) U/L Coronavirus (PCR) Not Detected (Not Detectd) Influenza Type A RNA (Not Detectd) Influenza Type B (PCR) (Not Detectd) 09/11/21 Range/Units 18:31 WBC (3.8-10.6) k/uL RBC (3.80-5.40) m/uL Hgb (11.4-16.0) gm/dL Hct (34.0-46.0) % MCV (80.0-100.0) fL MCH (25.0-35.0) pg MCHC (31.0-37.0) g/dL RDW (11.5-15.5) % Plt Count (150-450) k/uL MPV Neutrophils % % Lymphocytes % % Monocytes % % Eosinophils % % Basophils % % Neutrophils # (1.3-7.7) k/uL Lymphocytes # (1.0-4.8) k/uL Monocytes # (0-1.0) k/uL Eosinophils # (0-0.7) k/uL Basophils # (0-0.2) k/uL Sodium (137-145) mmol/L Potassium (3.5-5.1) mmol/L Chloride (98-107) mmol/L Carbon Dioxide (22-30) mmol/L Anion Gap mmol/L BUN (7-17) mg/dL Creatinine (0.52-1.04) mg/dL Est GFR (CKD-EPI)AfAm (>60 ml/min/1.73 sqM) Est GFR (CKD-EPI)NonAf (>60 ml/min/1.73 sqM) Glucose (74-99) mg/dL Calcium (8.4-10.2) mg/dL Total Bilirubin (0.2-1.3) mg/dL AST (14-36) U/L ALT (4-34) U/L Alkaline Phosphatase (38-126) U/L Total Protein (6.3-8.2) g/dL Albumin (3.5-5.0) g/dL Amylase (30-110) U/L Lipase (23-300) U/L Coronavirus (PCR) (Not Detectd) Influenza Type A RNA Not Detected (Not Detectd) Influenza Type B (PCR) Not Detected (Not Detectd) Disposition Clinical Impression: Dehydration, Nausea & vomiting Disposition: HOME SELF-CARE Condition: Stable Instructions (If sedation given, give patient instructions): Acute Nausea and Vomiting (ED) Additional Instructions: Please return to the Emergency Department if symptoms worsen or any other concerns. Is patient prescribed a controlled substance at d/c from ED?: No Referrals: Phillip Chatman MD [Primary Care Provider] - 1-2 days Time of Disposition: 19:51
[2021-09-11] MEDS: ONDANSETRON 4 MG ODT STARTER PACK 2 TAB BTL PO STA (19:59)
[2021-09-11 20:03] VITALS: BP 148/69; PULSE 62; RESP 18
== END 2021-09-11 20:12 | disposition home or self-care (01) ==
LOC: EC 14:40
DX: E86.0 Dehydration (principal); R11.2 Nausea with vomiting, unspecified; Z20.822 Contact with and (suspected) exposure to COVID-19; I11.0 Hypertensive heart disease with heart failure; I50.9 Heart failure, unspecified; E78.5 Hyperlipidemia, unspecified; F17.200 Nicotine dependence, unspecified, uncomplicated; Z79.82 Long term (current) use of aspirin; Z79.899 Other long term (current) drug therapy
CPT/HCPCS: 99284; 96374; 96361 ×2; 36415; 80053; 82150; 83690; 85025; 87502; 87635; J2405; S0119

== ENCOUNTER 2022-05-04 18:44 | Emergency (ER) | payer MEDICARE ==
[2022-05-04 18:57] VITALS: RESP 16
[2022-05-04] MEDS ORDERED: SODIUM CHLORIDE 0.9% 1,000 ML IV ONE (19:16)
[2022-05-04] MEDS ORDERED: ACETAMINOPHEN TAB 500 MG TAB PO STA (19:17)
--- NOTE | 2022-05-04 19:46 | ED ---
General Adult HPI - General Chief complaint: Upper Respiratory Infection Stated complaint: dehydration,weakness Time Seen by Provider: 05/04/22 19:04 Source: patient, family, RN notes reviewed Mode of arrival: ambulatory Limitations: no limitations - History of Present Illness Initial comments: This is a pleasant 70-year-old female with a history of heart., Hyperlipidemia, and dementia. Patient also has a history of sickle cell anemia. She presents today with her son. Patient tested positive for COVID-19 today. Apparently her main symptomology has been diminished appetite and some fatigue. Patient has had no respiratory distress. No chest pain. No vomiting. Patient is taking fluids normally. Son states that she seems to urinate a little more frequently than usual. Apparently due to dementia she does have a home nurse--she was concerned about the possibility of urinary tract infection. Patient herself has no complaints at this time. No headache, no fever or chills, no changes in vision or hearing, no sore throat or difficulty with speech, no neck pain, no chest pain or shortness of breath, no abdominal pain, no nausea or vomiting, positive increased urination and some constipation per son, no numbness or tingling, no extremity pain, no skin rashes or lesions. Past medical, surgical, social, and family history reviewed. - Related Data Home Medications Medication Instructions Recorded Confirmed Donepezil HCl [Aricept] 10 mg PO DAILY 08/01/21 09/11/21 Sacubitril/Valsartan [Entresto 97 1 tab PO BID 09/11/21 09/11/21 mg-103 mg Tablet] Spironolactone [Aldactone] 25 mg PO DAILY 09/11/21 09/11/21 Previous Rx's Medication Instructions Recorded Amiodarone [Cordarone] 200 mg PO BID 30 Days #60 tab 08/04/21 Aspirin 81 mg PO DAILY #30 tab 08/04/21 Atorvastatin [Lipitor] 40 mg PO DAILY 30 Days #30 tab 08/04/21 Clopidogrel [Plavix] 75 mg PO DAILY 30 Days #30 tab 08/04/21 Furosemide [Lasix] 40 mg PO BID@0900,1600 #60 tab 08/04/21 Isosorbide Mononitrate ER [Imdur] 30 mg PO DAILY #30 tablet 08/04/21 Metoprolol Tartrate [Lopressor] 50 mg PO BID #60 tab 08/04/21 hydrALAZINE HCL [Apresoline] 25 mg PO BID #60 tab 08/04/21 Allergies Allergy/AdvReac Type Severity Reaction Status Date / Time No Known Allergies Allergy Verified 05/04/22 18:51 Review of Systems ROS Statement: Those systems with pertinent positive or pertinent negative responses have been documented in the HPI. ROS Other: All systems not noted in ROS Statement are negative. Past Medical History Past Medical History: Heart Failure, Hyperlipidemia, Hypertension Additional Past Medical History / Comment(s): Sickle cell anemia, pt states she thinks she may have had a prior TIA History of Any Multi-Drug Resistant Organisms: None Reported Past Surgical History: Tubal Ligation Past Anesthesia/Blood Transfusion Reactions: No Reported Reaction Past Psychological History: No Psychological Hx Reported Smoking Status: Current some day smoker Past Alcohol Use History: None Reported Past Drug Use History: None Reported - Past Family History Father Family Medical History: No Reported History Additional Family Medical History / Comment(s): Father was healthy Mother Family Medical History: Hypertension General Exam - General Exam Comments Initial Comments: Elderly female does not appear to be in any significant distress. Appears to be adequately hydrated. Moist mucous membranes. Adequate skin turgor. The refill is normal. No mottling Limitations: no limitations General appearance: alert, in no apparent distress Head exam: Present: atraumatic, normocephalic, normal inspection Eye exam: Present: normal appearance, PERRL, EOMI. Absent: scleral icterus, conjunctival injection, periorbital swelling ENT exam: Present: normal exam, normal oropharynx, mucous membranes moist, normal external ear exam. Absent: mucous membranes dry Neck exam: Present: normal inspection, full ROM. Absent: tenderness, meningismus, lymphadenopathy Respiratory exam: Present: normal lung sounds bilaterally. Absent: respiratory distress, wheezes, rales, rhonchi, stridor, chest wall tenderness, accessory muscle use Cardiovascular Exam: Present: regular rate, normal rhythm, normal heart sounds. Absent: systolic murmur, diastolic murmur, rubs, gallop, clicks GI/Abdominal exam: Present: soft, normal bowel sounds. Absent: distended, tenderness, guarding, rebound, rigid Extremities exam: Present: normal inspection, full ROM, normal capillary refill. Absent: tenderness, pedal edema, joint swelling, calf tenderness Back exam: Present: normal inspection Neurological exam: Present: alert, oriented X3, CN II-XII intact Psychiatric exam: Present: normal affect, normal mood Skin exam: Present: warm, dry, intact, normal color. Absent: rash Course Vital Signs 05/04/22 18:51 Temperature 99.5 F Pulse Rate 74 Respiratory 16 Rate Blood Pressure 148/81 O2 Sat by Pulse 97 Oximetry Medical Decision Making - Medical Decision Making There was no evidence of urinary tract infection.Son was educated on conservative therapy for COVID-19. Educated on quarantine measures. Educated on return of all parameters. Patient voiced understanding. Son voiced understanding. All questions answered. Patient was given monoclonal antibody here as she met criteria. Patient was told to return to the ER for any signs or symptoms worsen. Told to return immediately if any other problems arise. All questions answered. Treatment plan discussed. Patient in agreement Every effort has been made to ensure accuracy of this dictation. However, due to the limitations of electronic medical records and dictation devices, errors in charting still occur. Supervising physician, Dr. Rivera - Lab Data Lab Results 05/04/22 05/04/22 Range/Units 19:54 20:15 POC Glucose (mg/dL) 101 (70-110) mg/dL POC Glu Sand Cutter Operator ID Juany Barrios Urine Color Light Yellow Urine Appearance Cloudy H (Clear) Urine pH 5.0 (5.0-8.0) Ur Specific [place] 1.008 (1.001-1.035) Urine Protein Negative (Negative) Urine Glucose (UA) Negative (Negative) Urine Ketones Negative (Negative) Urine Blood Negative (Negative) Urine Nitrite Negative (Negative) Urine Bilirubin Negative (Negative) Urine Urobilinogen <2.0 (<2.0) mg/dL Ur Leukocyte Esterase Negative (Negative) Urine RBC <1 (0-5) /hpf Urine WBC 1 (0-5) /hpf Ur Squamous Epith Cells 1 (0-4) /hpf Urine Bacteria Occasional H (None) /hpf Hyaline Casts 1 (0-2) /lpf Urine Mucus Rare H (None) /hpf - Radiology Data Radiology results: report reviewed, image reviewed Clearing of previous right lung base abnormalities as read by radiology. Disposition Clinical Impression: COVID-19 Disposition: HOME SELF-CARE Condition: Good Instructions (If sedation given, give patient instructions): Coronavirus Disease 2019 (COVID-19) Additional Instructions: SELF QUARANTINE DISCHARGE: As you are at risk for symptoms due to coronavirus, please stay home and stay away from others as much as possible. Please maintain social distance of 6 feet if possible. You should not return to work until at least 3 days (72 hours) have passed sin ce recovery of symptoms. This defined as resolution of fever without the use of fever reducing medicines and improvement in respiratory symptoms (e.g,, cough, shortness of breath) Isolation can end at least 5 days after symptom onset and after fever ends for 24 hours (without the use of fever-reducing medication) and symptoms are improving, if these people can continue to properly wear a well-fitted mask around others for 5 more days after the 5-day isolation period. If you're still having symptoms at the end of 5 day period, isolate for an additional 5 days. More information about what to do if you are sick can be found on the CDC website at https://www.cdc.gov/coronavirus/2019-ncov/iz-qhi-zyw-sick/lichl-flts-whgq.html Expect the symptoms to last for 7-14 days from onset. Use acetaminophen (Tylenol) as needed for discomfort. You can take a maximum of 1 gram every 6 hours for discomfort, with your total dose in 24 hours not exceeding 4 grams. Be sure to maintain hydration. Drink continuous water and/or items high in vitamin C, such as orange juice and/or lemonade. Unless you have high blood pressure, you may consider Sudafed (which is [id number]) for nasal congestion. I would suggest that a short acting Sudafed rather than the 24 hour Sudafed. For a cough you may take Mucinex or Robitussin. Also consider the use of Vicks Vapor Rub or your chest when you sleep. Use a humidifier that is cleaned frequently, in the bedroom at night. For Nausea /Vomiting/Diarrhea associated with your Illness: o Small frequent sips of room temperature liquids. o Diet: [place] Foods - If you are still experiencing discomfort and/or nausea please slowly advancing your diet using the BRAT Diet = bananas, rice, apples/apple sauce, toast. o With diarrhea avoid any dairy for 48 hours after symptoms resolved. o Continue with activity as tolerated. If your symptoms do get worse and you believe that the upper respiratory infection has developed into something else, such as pneumonia or severe dehydration, please return to the emergency department or follow-up with your primary care. But expect to be symptomatic for the days as indicated above Follow-up with your regular physician as directed. Return to the ER immediately if any symptoms worsen, new symptoms arise, or any other problems develop. Use [id number] acetaminophen as directed on the bottle for fever control and discomfort. Is patient prescribed a controlled substance at d/c from ED?: No Referrals: Phillip Chatman MD [Primary Care Provider] - 05/10/22 Time of Disposition: 20:21
--- NOTE | 2022-05-04 19:53 | XR ---
EXAMINATION TYPE: XR chest 2V DATE OF EXAM: 05/04/2022 COMPARISON: 07/29/2021 HISTORY: Cough TECHNIQUE: 2 views FINDINGS: Heart is normal. Lungs are clear. Diaphragm is normal. Bony thorax is intact. IMPRESSION: Normal chest. There is clearing of the atelectasis at the right lung base and pleural vick ction compared to the old exam.
[2022-05-04] MEDS ORDERED: BEBTELOVIMAB (EUA) 175 MG/2 ML VIAL IV ONE (20:00)
[2022-05-04 20:15] LABS: Appearance,Urine Cloudy (Clear); Bacteria,Urine Occasional /hpf; Bilirubin,Urine Negative (Negative); Blood,Urine Negative (Negative); Color,Urine Light Yellow; Glucose,Urine (UA) Negative (Negative); Hyaline Casts,Urine 1 /lpf (0-2); Ketones,Urine Negative (Negative); Leukocyte Esterase,Urine Negative (Negative); Mucus,Urine Rare /hpf; Nitrite,Urine Negative (Negative); Protein,Urine Negative (Negative); RBC,Urine <1 /hpf (0-5); Specific Gravity,Urine 1.008 (1.001-1.035); Squamous Epithelial Cell,Urine 1 /hpf (0-4); Urobilinogen,Urine <2.0 mg/dL (<2.0); WBC,Urine 1 /hpf (0-5)
[2022-05-04 20:18] LABS: Glucose,Whole Blood 101 mg/dL (70-110)
[2022-05-04 20:29] VITALS: PULSE 60; TEMP 98.6
[2022-05-04 21:02] VITALS: BP 144/78
== END 2022-05-04 21:02 | disposition home or self-care (01) ==
LOC: EC 18:44
DX: U07.1 COVID-19 (principal); E78.5 Hyperlipidemia, unspecified; I11.0 Hypertensive heart disease with heart failure; F17.200 Nicotine dependence, unspecified, uncomplicated
CPT/HCPCS: 36415; 81001; 71046; 99285; 96360; 96361; Q0222

== ENCOUNTER → 2022-07-28 | Outpatient (CLI) | payer MEDICARE ==
[2022-07-28 18:55] LABS: ALT 21 U/L (8-44); AST 19 U/L (13-35); Chol/HDL Ratio 1.88 Ratio; LDL Cholesterol,Calculated 57.8 mg/dL (0.0-131.0); VLDL Calculation 13.68 mg/dL (5.00-40.00)
== END | disposition home or self-care (01) ==
LOC: LABWHC1 11:01
PROVIDERS: ATTEND Internal Medicine Interventional Cardiology
DX: E78.2 Mixed hyperlipidemia (principal)
CPT/HCPCS: 36415; 80061; 84443; 84450; 84460

== ENCOUNTER → 2023-02-01 | Outpatient (CLI) | payer MEDICARE ==
--- NOTE | 2023-02-02 18:23 | BD ---
EXAMINATION TYPE: Axial Bone Density DATE OF EXAM: 02/01/2023 CLINICAL HISTORY: 70 years old Female. ICD-10 CODE: Z13.820 SCREENING FOR OSTEOPOROSIS Height: 60 in Weight: 129 lbs FRAX RISK QUESTIONS: Secondary Osteoporosis: 3. Menopause before 45: age 39 Current Tobacco Use: yes RISK FACTORS HISTORY OF: Active: limited Diet low in dairy products/other sources of calcium: yes Postmenopausal woman: age 39 Frequent falls: yes unsteady Poor Health: yes MEDICATIONS: Additional Medications: heart meds, cholesterol meds, blood pressure meds, EXAM MEASUREMENTS: Bone mineral densitometry was performed using the [employer] System. Bone mineral density as measured about the Lumbar spine is: ----- L1-L4(G/cm2): 1.525 T Score Values are as follows: ----- L1: 1.5 ----- L2: 2.3 ----- L3: 3.2 ----- L4: 3.8 ----- L1-L4: 2.9 Z Score Values are as follows: ----- L1: 2.7 ----- L2: 3.5 ----- L3: 4.4 ----- L4: 5.0 ----- L1-L4: 4.1 Bone mineral density baseline FRAX%s: The graph provided illustrates a 6.5% chance for a major osteoporotic fx and a 2.2% chance fo r the hips probability for fx in 10 years time. IMPRESSION: Osteopenia (T Score between -2.5 and -1). There is slightly increased risk of fracture and the patient may be considered for treatment. Re-Screen 2-5 years. NOTE: T-SCORE=SD OF THE YOUNG ADULT MEAN.
== END | disposition home or self-care (01) ==
LOC: RADBDWWP 16:20
PROVIDERS: ATTEND Family Medicine
DX: Z13.820 Encounter for screening for osteoporosis (principal); M85.88 Other specified disorders of bone density and structure, other site; Z78.0 Asymptomatic menopausal state
CPT/HCPCS: 77080

== ENCOUNTER 2023-07-21 14:37 | Inpatient (IN) | payer MEDICARE, OTHER ==
[2023-07-21] MEDS ORDERED: SODIUM CHLORIDE 0.9% 500 ML 500 ML IV STA (15:29)
[2023-07-21] MEDS ORDERED: ONDANSETRON 4 MG/2 ML VIAL IVP STA (15:31)
--- NOTE | 2023-07-21 15:56 | ED ---
Weakness HPI - General Chief complaint: Weakness Stated complaint: Vomiting Time Seen by Provider: 07/21/23 15:06 Source: patient, family Mode of arrival: wheelchair Limitations: no limitations - History of Present Illness Initial comments: This patient is a 71-year-old woman with history of some underlying dementia, brought to have evaluation for generalized weakness. Patient has also been having episodes of vomiting, intermittently. Patient reportedly just not feeling well going back about 10 days now. Patient is able to give most of the history, states she is not having pains. No dyspnea. She has had a few episodes of vomiting over the past 10 days, no hematemesis or coffee grounds noted. No change in bowel movements. Patient is not having dyspnea, cough, fever or chills. MD Complaint: generalized weakness, lack of energy Onset/Timin -: days(s) Location: generalized Severity scale (1-10): 0 Consistency: constant Improves with: none Worsens with: none Associated Symptoms: nausea/vomiting - Related Data Home Medications Medication Instructions Recorded Confirmed Donepezil HCl [Aricept] 10 mg PO DAILY 08/01/21 07/21/23 Amoxic-Pot Clav 875-125Mg 1 tab PO Q12H 07/21/23 07/21/23 [Augmentin 875-125] Previous Rx's Medication Instructions Recorded Atorvastatin [Lipitor] 40 mg PO DAILY 30 Days #30 tab 08/04/21 Clopidogrel [Plavix] 75 mg PO DAILY 30 Days #30 tab 08/04/21 Furosemide [Lasix] 40 mg PO BID@0900,1600 #60 tab 08/04/21 Isosorbide Mononitrate ER [Imdur] 30 mg PO DAILY #30 tablet 08/04/21 Metoprolol Tartrate [Lopressor] 50 mg PO BID #60 tab 08/04/21 hydrALAZINE HCL [Apresoline] 25 mg PO BID #60 tab 08/04/21 Metoprolol Tartrate [Lopressor] 12.5 mg PO BID 30 Days #60 tab 07/28/23 Sacubitril/Valsartan [Entresto 49 1 each PO BID 30 Days #60 tab 07/28/23 mg-51 mg Tablet] Allergies Allergy/AdvReac Type Severity Reaction Status Date / Time No Known Allergies Allergy Verified 07/21/23 14:59 Review of Systems ROS Statement: Those systems with pertinent positive or pertinent negative responses have been documented in the HPI. ROS Other: All systems not noted in ROS Statement are negative. Constitutional: Reports: weakness. Denies: fever, chills Respiratory: Denies: cough, dyspnea Cardiovascular: Denies: chest pain, palpitations, edema Gastrointestinal: Reports: nausea, vomiting. Denies: abdominal pain, diarrhea, constipation, hematemesis, melena, hematochezia Genitourinary: Denies: dysuria, hematuria Musculoskeletal: Denies: back pain Skin: Denies: rash Neurological: Denies: headache, weakness Past Medical History Past Medical History: Heart Failure, Hyperlipidemia, Hypertension Additional Past Medical History / Comment(s): Sickle cell anemia, pt states she thinks she may have had a prior TIA History of Any Multi-Drug Resistant Organisms: None Reported Past Surgical History: Tubal Ligation Past Anesthesia/Blood Transfusion Reactions: No Reported Reaction Past Psychological History: No Psychological Hx Reported Smoking Status: Current some day smoker Past Alcohol Use History: None Reported Past Drug Use History: None Reported - Past Family History Father Family Medical History: No Reported History Additional Family Medical History / Comment(s): Father was healthy Mother Family Medical History: Hypertension General Exam Limitations: no limitations General appearance: alert, in no apparent distress Head exam: Present: atraumatic, normocephalic Eye exam: Present: normal appearance, PERRL, EOMI. Absent: scleral icterus, conjunctival injection Neck exam: Present: normal inspection, full ROM. Absent: tenderness, meningismus Respiratory exam: Present: normal lung sounds bilaterally. Absent: respiratory distress, wheezes, rales, rhonchi, stridor Cardiovascular Exam: Present: regular rate, normal rhythm, normal heart sounds. Absent: systolic murmur, diastolic murmur, rubs, gallop GI/Abdominal exam: Present: soft. Absent: distended, tenderness, guarding, rebound, rigid, mass Extremities exam: Present: normal inspection, normal capillary refill. Absent: pedal edema, calf tenderness Back exam: Present: normal inspection. Absent: CVA tenderness (R), CVA tenderness (L) Neurological exam: Present: alert Skin exam: Present: warm, dry, intact, normal color. Absent: rash Course Vital Signs 07/21/23 07/21/23 14:56 19:30 Temperature 97.4 F L Pulse Rate 48 L 49 L Respiratory 18 18 Rate Blood Pressure 92/57 110/61 O2 Sat by Pulse 96 99 Oximetry EKG Findings - EKG Results: EKG: interpreted by ERMD, sinus rhythm (Rate 43 bpm), normal axis EKG shows: bradycardia - Blocks, [place], Hypertrophy, ST Abn: AV and intraventricular conduction: right bundle branch block (fixed/intermittent, complete/incomplete) (Partial) Medical Decision Making - Medical Decision Making Troponin I presented be elevated due to acute kidney failure. Was pt. sent in by a medical professional or institution (, PA, INFO ANALYST, urgent care, hospital, or usp...) When possible be specific @ -[No] Did you speak to anyone other than the patient for history (EMS, parent, family, police, friend...)? What history was obtained from this source @ -[No] Did you review nursing and triage notes (agree or disagree)? Why? @ -[I reviewed and agree with nursing and triage notes] Were old charts reviewed (outside hosp., previous admission, EMS record, old EKG, old radiological studies, urgent care reports/EKG's, usp records)? Report findings @ -[No old charts were reviewed] Differential Diagnosis (chest pain, altered mental status, abdominal pain women, abdominal pain men, vaginal bleeding, weakness, fever, dyspnea, syncope, headache, dizziness, GI bleed, back pain, seizure, CVA, palpatations, mental health, musculoskeletal)? @ -[Differential Weakness: Hypoglycemia, shock, sepsis, hyponatremia, anemia, infection, PR, ETOH, adverse medicine reaction, overdose, stroke, this is not meant to be an all-inclusive list. EKG interpreted by me (3pts min.). @ -[I interpreted As above] X-rays interpreted by me (1pt min.). @ -[None done] CT interpreted by me (1pt min.). @ -[None done] U/S interpreted by me (1pt. min.). @ -[None done] What testing was considered but not performed or refused? (CT, X-rays, U/S, labs)? Why? @ -[None] What meds were considered but not given or refused? Why? @ -[None] Did you discuss the management of the patient with other professionals (professionals i.e. , PA, INFO ANALYST, lab, RT, psych nurse, delinquency prevention social worker, sample examiner, teacher, chief technology officer, clinical case manager)? Give summary @ -[Case discussed with admitting physician who saw the patient in emergency department Was smoking cessation discussed for >3mins.? @ -[No] Was critical care preformed (if so, how long)? @ -[No] Were there social determinants of health that impacted care today? How? (Homelessness, low income, unemployed, alcoholism, drug addiction, transportation, low edu. Level, literacy, decrease access to med. care, assisted, rehab)? @ -[No] Was there de-escalation of care discussed even if they declined (Discuss DNR or withdrawal of care, Hospice)? DNR status @ -[No] What co-morbidities impacted this encounter? (DM, HTN, Smoking, COPD, CAD, Cancer, CVA, ARF, Chemo, Hep., AIDS, mental health diagnosis, sleep apnea, morbid obesity)? @ -[Hypertension Was patient admitted / discharged? Hospital course, mention meds given and route, prescriptions, significant lab abnormalities, going to OR and other pertinent info. @ -[The patient is admitted to have IV hydration as well as nephrology consultation related to acute kidney injury Undiagnosed new problem with uncertain prognosis? @ -[No] Drug Therapy requiring intensive monitoring for toxicity (Heparin, Nitro, Insulin, Cardizem)? @ -[No] Were any procedures done? @ -[No] Diagnosis/symptom? @ -[Acute generalized weakness Acute kidney injury Hyperkalemia Elevated troponin Lactic acidosis Acute, or Chronic, or Acute on Chronic? @ -[Acute Uncomplicated (without systemic symptoms) or Complicated (systemic symptoms)? @ -[Complicated by generalized weakness Side effects of treatment? @ -[No] Exacerbation, Progression, or Severe Exacerbation? @ -[No] Poses a threat to life or bodily function? How? (Chest pain, [place], PR, pneumonia, PE, COPD, DKA, ARF, appy, cholecystitis, CVA, Diverticulitis, Homicidal, Suicidal, threat to staff... and all critical care pts) @ -[Yes there is threat to renal function/life as manifested by the elevated BUN/creatinine - Lab Data Result diagrams: 07/27/23 06:46 07/28/23 07:02 Lab Results 07/21/23 07/21/23 07/21/23 Range/Units 16:58 16:58 16:58 WBC 7.7 (3.8-10.6) k/uL RBC 4.80 (3.80-5.40) m/uL Hgb 13.2 (11.4-16.0) gm/dL Hct 39.0 (34.0-46.0) % MCV 81.2 (80.0-100.0) fL MCH 27.5 (25.0-35.0) pg MCHC 33.9 (31.0-37.0) g/dL RDW 13.3 (11.5-15.5) % Plt Count 256 (150-450) k/uL MPV 9.4 Neutrophils % 72 % Lymphocytes % 21 % Monocytes % 4 % Eosinophils % 2 % Basophils % 0 % Neutrophils # 5.5 (1.3-7.7) k/uL Lymphocytes # 1.6 (1.0-4.8) k/uL Monocytes # 0.3 (0-1.0) k/uL Eosinophils # 0.2 (0-0.7) k/uL Basophils # 0.0 (0-0.2) k/uL Sodium 138 (137-145) mmol/L Potassium 5.3 H (3.5-5.1) mmol/L Chloride 97 L (98-107) mmol/L Carbon Dioxide 26 (22-30) mmol/L Anion Gap 15 mmol/L BUN 70 H (7-17) mg/dL Creatinine 5.39 H (0.52-1.04) mg/dL Est GFR (CKD-EPI)AfAm 8 (>60 ml/min/1.73 sqM) Est GFR (CKD-EPI)NonAf 7 (>60 ml/min/1.73 sqM) Glucose 134 H (74-99) mg/dL Osmolality (280-301) mosm/kg Lactic Ac Sepsis Rflx Plasma Lactic Acid Reuben 3.5 H* (0.7-2.0) mmol/L Calcium 10.3 H (8.4-10.2) mg/dL Total Bilirubin 0.8 (0.2-1.3) mg/dL AST 25 (14-36) U/L ALT 18 (4-34) U/L Alkaline Phosphatase 119 (38-126) U/L Troponin I (0.000-0.034) ng/mL NT-Pro-B Natriuret Pep 248 pg/mL Total Protein 7.8 (6.3-8.2) g/dL Albumin 4.5 (3.5-5.0) g/dL 07/21/23 07/21/23 07/21/23 Range/Units 16:58 16:58 17:35 WBC (3.8-10.6) k/uL RBC (3.80-5.40) m/uL Hgb (11.4-16.0) gm/dL Hct (34.0-46.0) % MCV (80.0-100.0) fL MCH (25.0-35.0) pg MCHC (31.0-37.0) g/dL RDW (11.5-15.5) % Plt Count (150-450) k/uL MPV Neutrophils % % Lymphocytes % % Monocytes % % Eosinophils % % Basophils % % Neutrophils # (1.3-7.7) k/uL Lymphocytes # (1.0-4.8) k/uL Monocytes # (0-1.0) k/uL Eosinophils # (0-0.7) k/uL Basophils # (0-0.2) k/uL Sodium (137-145) mmol/L Potassium (3.5-5.1) mmol/L Chloride (98-107) mmol/L Carbon Dioxide (22-30) mmol/L Anion Gap mmol/L BUN (7-17) mg/dL Creatinine (0.52-1.04) mg/dL Est GFR (CKD-EPI)AfAm (>60 ml/min/1.73 sqM) Est GFR (CKD-EPI)NonAf (>60 ml/min/1.73 sqM) Glucose (74-99) mg/dL Osmolality 311 H (280-301) mosm/kg Lactic Ac Sepsis Rflx Y Plasma Lactic Acid Reuben (0.7-2.0) mmol/L Calcium (8.4-10.2) mg/dL Total Bilirubin (0.2-1.3) mg/dL AST (14-36) U/L ALT (4-34) U/L Alkaline Phosphatase (38-126) U/L Troponin I 0.037 H* (0.000-0.034) ng/mL NT-Pro-B Natriuret Pep pg/mL Total Protein (6.3-8.2) g/dL Albumin (3.5-5.0) g/dL Disposition Clinical Impression: Acute kidney injury Disposition: ADMITTED IP TO THIS HOSP Condition: Fair
[2023-07-21 17:18] LABS: Basophils % (A) 0 %; Eosinophils # (A) 0.2 k/uL (0-0.7); Eosinophils % (A) 2 %; HGB 13.2 gm/dL (11.4-16.0); Lymphocytes # (A) 1.6 k/uL (1.0-4.8); Lymphocytes % (A) 21 %; MCH 27.5 pg (25.0-35.0); MCHC 33.9 g/dL (31.0-37.0); MCV 81.2 fL (80.0-100.0); Mean Platelet Volume 9.4; Monocytes # (A) 0.3 k/uL (0-1.0); Monocytes % (A) 4 %; Neutrophils # (A) 5.5 k/uL (1.3-7.7); Neutrophils % (A) 72 %; Platelet Count 256 k/uL (150-450); RDW 13.3 % (11.5-15.5); WBC 7.7 k/uL (3.8-10.6)
[2023-07-21 17:26] LABS: ALT 18 U/L (4-34); AST 25 U/L (14-36); African American GFR (CKD) 8 (>60 ml/min/1.73 sqM); Albumin 4.5 g/dL (3.5-5.0); Alkaline Phosphatase 119 U/L (38-126); Anion Gap 15 mmol/L; Blood Urea Nitrogen 70 mg/dL (7-17); Calcium 10.3 mg/dL (8.4-10.2); Carbon Dioxide 26 mmol/L (22-30); Chloride 97 mmol/L (98-107); Glucose 134 mg/dL (74-99); Non-African American GFR(CKD) 7 (>60 ml/min/1.73 sqM); Potassium 5.3 mmol/L (3.5-5.1); Sodium 138 mmol/L (137-145); Total Bilirubin 0.8 mg/dL (0.2-1.3); Total Protein 7.8 g/dL (6.3-8.2)
[2023-07-21 17:34] LABS: NT-Pro-B-Type Natriuretic Pept 248 pg/mL
[2023-07-21] MEDS ORDERED: NALOXONE 0.4 MG/ML 1 ML VIAL IV PRN (17:39)
[2023-07-21] MEDS ORDERED: MAG HYDROX/AL HYDROX/SIMETH 30 ML CUP PO PRN (17:39)
[2023-07-21] MEDS: SODIUM CHLORIDE 0.9% 1,000 ML IV SCH (17:52)
--- NOTE | 2023-07-21 19:17 | US ---
EXAMINATION TYPE: US kidneys/renal and bladder DATE OF EXAM: 07/21/2023 COMPARISON: NONE CLINICAL INDICATION: Female, 71 years old with history of Acute kidney injury; pain keyanna EXAM MEASUREMENTS: Right Kidney: 9.1 x 4.3 x 5.1 cm Left Kidney: 7.3 x 3.9 x 3.5 cm Incidental finding 1.4 cm gallstone visualized. Right Kidney: No hydronephrosis or masses seen Left Kidney: No hydronephrosis or masses seen Bladder: Not fully distended Bilateral Jets seen: no There is no evidence for hydronephrosis at this point in time. No nephrolithiasis is seen. No mayuri s are identified. The urinary bladder is anechoic. IMPRESSION: 1. No evidence for obstructive uropathy. 2. Cholelithiasis
[2023-07-21] MEDS ORDERED: FAMOTIDINE 20 MG TAB PO SCH (21:00)
[2023-07-21] MEDS: FAMOTIDINE 20 MG TAB PO SCH (21:47)
--- NOTE | 2023-07-21 22:38 | P.HPIM ---
History of Present Illness H&P Date: 07/21/23 Chief Complaint: Generalized weakness Patient is a 71-year-old female with a known history of chronic CHF with systolic dysfunction ejection fraction 20 to 25%, cardiomyopathy, hypertension, hyperlipidemia, sickle cell trait and prior history of TIAs and dementia presents to ER with complaints of nausea, vomiting and not feeling well for the past 10 days. Patient also having poor oral intake. Patient is somewhat poor historian due to short-term memory loss. States that she had right flank pain this afternoon and felt like fever and mild chills. Denies any dysuria or hematuria. Denies any complaints of chest pain or shortness of breath. No complaints of leg swelling. No cough or sputum production. Patient was brought to the hospital by her son. EKG showed sinus bradycardia Blood pressure 92/57 on admission heart rate 48 and also ox 96% on room air. Respiratory rate 18 Laboratory data showed WBC 7.7 hemoglobin 13.1 platelets 256 Sodium 138 potassium 5.3 chloride 97 bicarb is 26 BUN 70 and creatinine 5.39, blood sugar is 134, Lactic acid 3.5, serum osmolality 311 Hypercalcemia 10.3. Liver enzymes are not elevated. Total bili 0.8 and troponin 0.037, proBNP 248. Review of Systems Complete review of systems could not be obtained from the patient except as per HPI Past Medical History Past Medical History: Heart Failure, Hyperlipidemia, Hypertension Additional Past Medical History / Comment(s): Sickle cell anemia, pt states she thinks she may have had a prior TIA History of Any Multi-Drug Resistant Organisms: None Reported Past Surgical History: Tubal Ligation Past Anesthesia/Blood Transfusion Reactions: No Reported Reaction Past Psychological History: No Psychological Hx Reported Smoking Status: Current some day smoker Past Alcohol Use History: None Reported Past Drug Use History: None Reported - Past Family History Father Family Medical History: No Reported History Additional Family Medical History / Comment(s): Father was healthy Mother Family Medical History: Hypertension Medications and Allergies Home Medications Medication Instructions Recorded Confirmed Type Donepezil HCl [Aricept] 10 mg PO DAILY 08/01/21 07/21/23 History Amiodarone [Cordarone] 200 mg PO BID 30 Days #60 tab 08/04/21 07/21/23 Rx Atorvastatin [Lipitor] 40 mg PO DAILY 30 Days #30 tab 08/04/21 07/21/23 Rx Clopidogrel [Plavix] 75 mg PO DAILY 30 Days #30 tab 08/04/21 07/21/23 Rx Furosemide [Lasix] 40 mg PO BID@0900,1600 #60 tab 08/04/21 07/21/23 Rx Isosorbide Mononitrate ER [Imdur] 30 mg PO DAILY #30 tablet 08/04/21 07/21/23 Rx Metoprolol Tartrate [Lopressor] 50 mg PO BID #60 tab 08/04/21 07/21/23 Rx hydrALAZINE HCL [Apresoline] 25 mg PO BID #60 tab 08/04/21 07/21/23 Rx Sacubitril/Valsartan [Entresto 97 1 tab PO BID 09/11/21 07/21/23 History mg-103 mg Tablet] Spironolactone [Aldactone] 25 mg PO DAILY 09/11/21 07/21/23 History Amoxic-Pot Clav 875-125Mg 1 tab PO Q12H 07/21/23 07/21/23 History [Augmentin 875-125] Allergies Allergy/AdvReac Type Severity Reaction Status Date / Time No Known Allergies Allergy Verified 07/21/23 14:59 Physical Exam Vitals: Vital Signs Temp Pulse Pulse Resp BP BP Pulse Ox 07/21/23 20:15 97.5 F L 48 L 114/76 100 07/21/23 19:30 49 L 18 110/61 99 07/21/23 14:56 97.4 F L 48 L 18 92/57 96 Intake and Output 07/21/23 07/21/23 07/21/23 06:59 14:59 22:59 Other: Weight 49.895 kg PHYSICAL EXAMINATION: Patient is lying in the bed. Awake alert and oriented x2-3. HEENT: Normocephalic. Neck is supple. Pupils reactive. Nostrils clear. Oral cavity is dry. Neck reveals no JVD, carotid bruits, or thyromegaly. CHEST EXAMINATION: Trachea is central. Symmetrical expansion. Lung medina clear to auscultation and percussion. CARDIAC: Normal S1, S2 with no gallops. No murmurs ABDOMEN: Soft. Bowel sounds present. Nontender. No organomegaly. No abdominal bruits. Extremities: reveal no edema. No clubbing or cyanosis Neurologically awake, alert, oriented x2. Able to move all extremities. No gross focal deficits noted Skin: No rash or skin lesions. Psychiatric: Coperative. Could not be assessed completely., Musculoskeletal: No joint swelling or deformity. Results CBC & Chem 7: 07/21/23 16:58 07/21/23 16:58 Labs: Abnormal Lab Results - Last 24 Hours (Table) 07/21/23 07/21/23 07/21/23 Range/Units 16:58 16:58 16:58 Potassium 5.3 H (3.5-5.1) mmol/L Chloride 97 L (98-107) mmol/L BUN 70 H (7-17) mg/dL Creatinine 5.39 H (0.52-1.04) mg/dL Glucose 134 H (74-99) mg/dL Osmolality (280-301) mosm/kg Plasma Lactic Acid Reuben 3.5 H* (0.7-2.0) mmol/L Calcium 10.3 H (8.4-10.2) mg/dL Troponin I 0.037 H* (0.000-0.034) ng/mL 07/21/23 Range/Units 16:58 Potassium (3.5-5.1) mmol/L Chloride (98-107) mmol/L BUN (7-17) mg/dL Creatinine (0.52-1.04) mg/dL Glucose (74-99) mg/dL Osmolality 311 H (280-301) mosm/kg Plasma Lactic Acid Reuben (0.7-2.0) mmol/L Calcium (8.4-10.2) mg/dL Troponin I (0.000-0.034) ng/mL Thrombosis Risk Factor Assmnt - DVT/VTE Prophylaxis DVT/VTE Prophylaxis: Pharmacologic Prophylaxis ordered Assessment and Plan Assessment: Acute on chronic disease stage III due to vasomotor nephropathy and possible cardiorenal with underlying cardiomyopathy. Hyperkalemia secondary to acute kidney injury Lactic acidosis Mild troponin elevation Nausea vomiting and generalized weakness. Chronic CHF with systolic and diastolic dysfunction. Ejection fraction 20 to 25%. Nonischemic versus ischemic cardiomyopathy. History of ventricular tachycardia Hypertension Hyperlipidemia Sickle cell anemia Dementia/short-term memory loss History of TIA Ongoing nicotine addiction/ smoking Medication noncompliance. DVT prophylaxis with heparin subcu Plan: Patient will be continued on telemetry monitoring. Continue with IV hydration with normal saline and monitor respiratory status closely due to underlying CHF.. Urinalysis and ultrasound renal was ordered due to complaints of right flank pain. Patient is a poor historian.. Continue with Pepcid and symptomatic management for nausea. Lasix, spironolactone and Entresto is on hold. Continue to hold other blood pressure medications. Nephrology consult for evaluation of acute kidney injury. Urine osmolality, sodium, protein and creatinine was ordered. Continue to follow closely. Discussed with her son at bedside in detail. Prognosis is guarded at this time. Time with Patient: Greater than 30
[2023-07-22 03:53] LABS: Appearance,Urine Clear (Clear); Bilirubin,Urine Negative (Negative); Blood,Urine Negative (Negative); Color,Urine Light Yellow; Glucose,Urine (UA) Negative (Negative); Hyaline Casts,Urine 9 /lpf (0-2); Ketones,Urine Negative (Negative); Leukocyte Esterase,Urine Trace (Negative); Mucus,Urine Rare /hpf; Nitrite,Urine Negative (Negative); Protein,Urine Negative (Negative); RBC,Urine <1 /hpf (0-5); Squamous Epithelial Cell,Urine 2 /hpf (0-4); Urobilinogen,Urine <2.0 mg/dL (<2.0); WBC,Urine 1 /hpf (0-5)
[2023-07-22] MEDS: SODIUM CHLORIDE 0.9% 1,000 ML IV SCH ×2 (05:44→20:17)
--- NOTE | 2023-07-22 05:52 | XR ---
EXAMINATION TYPE: XR chest 1V DATE OF EXAM: 07/22/2023 5:32 AM CLINICAL INDICATION:Female, 71 years old with history of CHF; [facility] COMPARISON: Chest x-ray 05/04/2022 TECHNIQUE: XR chest 1V Frontal view of the chest. FINDINGS: Lines/Tubes/Devices: EKG leads and other extrinsic densities overlie the chest. No indwelling lines are seen. Heart/mediastinum: Cardiac silhouette is mildly enlarged. Stable somewhat tortuous aorta. Mediastinal contours are unchanged. Pulmonary vascularity: Not increased. Lungs/Pleura: There is no evidence of pleural effusion, focal consolidation, or pneumothorax. Musculoskeletal: No evidence of an acute bony abnormaltiy. Multilevel endplate spurring in the spine . Degenerative changes of the shoulders, somewhat greater on the left than right. Other findings: None significant. IMPRESSION: Mild cardiomegaly. No acute cardiopulmonary disease/process.
[2023-07-22 06:50] LABS: Creatinine,Urine Random 163.1 mg/dL
[2023-07-22 08:21] LABS: Basophils % (A) 1 %; Eosinophils # (A) 0.1 k/uL (0-0.7); Eosinophils % (A) 2 %; HCT 34.8 % (34.0-46.0); HGB 11.6 gm/dL (11.4-16.0); Lymphocytes % (A) 33 %; MCH 27.2 pg (25.0-35.0); MCHC 33.4 g/dL (31.0-37.0); MCV 81.7 fL (80.0-100.0); Monocytes # (A) 0.4 k/uL (0-1.0); Monocytes % (A) 6 %; Neutrophils # (A) 3.5 k/uL (1.3-7.7); Neutrophils % (A) 57 %; Platelet Count 214 k/uL (150-450); RBC 4.26 m/uL (3.80-5.40); WBC 6.2 k/uL (3.8-10.6)
[2023-07-22] MEDS: CLOPIDOGREL 75 MG TAB PO SCH (08:21)
[2023-07-22] MEDS: ATORVASTATIN 40 MG TAB PO SCH (08:21)
[2023-07-22] MEDS: HEPARIN SODIUM,PORCINE 5,000 UNIT/ML 1 ML VIAL SQ SCH ×3 (08:21→20:16)
[2023-07-22] MEDS: AMIODARONE 200 MG TAB PO SCH ×2 (08:38→20:09)
[2023-07-22 09:05] LABS: African American GFR (CKD) 12 (>60 ml/min/1.73 sqM); Anion Gap 11 mmol/L; Blood Urea Nitrogen 59 mg/dL (7-17); Carbon Dioxide 26 mmol/L (22-30); Chloride 102 mmol/L (98-107); Glucose 97 mg/dL (74-99); Non-African American GFR(CKD) 10 (>60 ml/min/1.73 sqM); Potassium 4.6 mmol/L (3.5-5.1); Sodium 139 mmol/L (137-145)
--- NOTE | 2023-07-22 11:38 | P.NPCON ---
History of Present Illness - Reason for Consult acute renal failure, chronic renal failure - History of Present Illness Reason for consultation: Acute kidney injury on chronic kidney disease History of present illness: Patient is a 71-year-old female seen in renal consultation for acute kidney injury on chronic kidney disease. Patient has chronic kidney disease stage IIIB with baseline creatinine 1.3-1.5 secondary to nephrosclerosis. Patient came to the hospital due to nausea and vomiting going on for the last 2-3 days. Patient does admit to taking Lasix twice daily at home. I also see and Entresto, spironolactone in her home medication list. She is currently receiving IV fluids. Patient does have history of systolic CHF with ejection fraction of 20- 25% with severe mitral and tricuspid regurgitation. She denies history of diabetes. No history of coronary artery disease. Denies family history of renal disease. Denies was hematuria or dysuria. UA noted to be benign this admission. Renal imaging showed atrophic left kidney without any hydronephrosis. No evidence of fluid overload noted on chest x-ray. No edema. Vital signs are stable. General: No acute distress. HEENT: Head exam is unremarkable. LUNGS: No audible rhonchi or wheezes. HEART: Rate and Rhythm are regular. ABDOMEN: Nontender. EXTREMITITES: No edema. Past Medical History Past Medical History: Heart Failure, Hyperlipidemia, Hypertension Additional Past Medical History / Comment(s): Sickle cell anemia, pt states she thinks she may have had a prior TIA History of Any Multi-Drug Resistant Organisms: None Reported Past Surgical History: Tubal Ligation Past Anesthesia/Blood Transfusion Reactions: No Reported Reaction Past Psychological History: No Psychological Hx Reported Smoking Status: Current some day smoker Past Alcohol Use History: None Reported Past Drug Use History: None Reported - Past Family History Father Family Medical History: No Reported History Additional Family Medical History / Comment(s): Father was healthy Mother Family Medical History: Hypertension Medications and Allergies Home Medications Medication Instructions Recorded Confirmed Type Donepezil HCl [Aricept] 10 mg PO DAILY 08/01/21 07/21/23 History Amiodarone [Cordarone] 200 mg PO BID 30 Days #60 tab 08/04/21 07/21/23 Rx Atorvastatin [Lipitor] 40 mg PO DAILY 30 Days #30 tab 08/04/21 07/21/23 Rx Clopidogrel [Plavix] 75 mg PO DAILY 30 Days #30 tab 08/04/21 07/21/23 Rx Furosemide [Lasix] 40 mg PO BID@0900,1600 #60 tab 08/04/21 07/21/23 Rx Isosorbide Mononitrate ER [Imdur] 30 mg PO DAILY #30 tablet 08/04/21 07/21/23 Rx Metoprolol Tartrate [Lopressor] 50 mg PO BID #60 tab 08/04/21 07/21/23 Rx hydrALAZINE HCL [Apresoline] 25 mg PO BID #60 tab 08/04/21 07/21/23 Rx Sacubitril/Valsartan [Entresto 97 1 tab PO BID 09/11/21 07/21/23 History mg-103 mg Tablet] Spironolactone [Aldactone] 25 mg PO DAILY 09/11/21 07/21/23 History Amoxic-Pot Clav 875-125Mg 1 tab PO Q12H 07/21/23 07/21/23 History [Augmentin 875-125] Allergies Allergy/AdvReac Type Severity Reaction Status Date / Time No Known Allergies Allergy Verified 07/21/23 14:59 Physical Exam Vitals: Vital Signs Temp Pulse Pulse Resp BP BP Pulse Ox 07/22/23 06:58 98.2 F 49 L 18 110/52 100 07/22/23 01:54 98.7 F 51 L 92/52 100 07/21/23 20:15 97.5 F L 48 L 114/76 100 07/21/23 20:00 45 L 07/21/23 19:30 49 L 18 110/61 99 07/21/23 14:56 97.4 F L 48 L 18 92/57 96 Intake and Output 07/21/23 07/22/23 07/22/23 22:59 06:59 14:59 Other: # Voids 2 Weight 49.895 kg Results - Lab Results Most recent lab results Calcium 9.0 mg/dL (8.4-10.2) 07/22/23 07:50 07/22/23 07:50 07/22/23 07:50 Assessment and Plan Plan: Assessment: 1. Acute kidney injury secondary to ATN secondary to hypovolemia further worsened with the use of diuretics, ARB. UA benign. No hydronephrosis noted on kidney ultrasound. Left kidney atrophic. Creatinine 5.39 on admission and is 4.19 today. 2. Mild hyperkalemia secondary to acute kidney injury, Aldactone and entresto. Improved. 3. Chronic systolic CHF with ejection fraction of 20-25% with severe mitral and tricuspid regurgitation. 4. Chronic kidney disease stage IIIB with baseline creatinine 1.3-1.5 secondary to nephrosclerosis. Plan: Maintain IV fluids. Continue to hold diuretics and antihypertensives. Avoid nephrotoxins. Continue to monitor renal function and urine output. Thank you for the consultation. I will continue to follow the patient with you during her hospital stay.
[2023-07-22 14:01] LABS: Potassium,Urine Random 14.9 mmol/L (25.0-125.0)
[2023-07-22] MEDS: FAMOTIDINE 20 MG TAB PO SCH (20:16)
[2023-07-23] MEDS: SODIUM CHLORIDE 0.9% 1,000 ML IV SCH ×2 (04:59→20:35)
[2023-07-23] MEDS: AMIODARONE 200 MG TAB PO SCH ×2 (08:10→20:30)
[2023-07-23] MEDS: CLOPIDOGREL 75 MG TAB PO SCH (08:17)
[2023-07-23] MEDS: HEPARIN SODIUM,PORCINE 5,000 UNIT/ML 1 ML VIAL SQ SCH ×2 (08:17→20:43)
[2023-07-23] MEDS: ATORVASTATIN 40 MG TAB PO SCH (08:17)
[2023-07-23 08:57] LABS: African American GFR (CKD) 22 (>60 ml/min/1.73 sqM); Anion Gap 9 mmol/L; Blood Urea Nitrogen 34 mg/dL (7-17); Calcium 8.5 mg/dL (8.4-10.2); Carbon Dioxide 24 mmol/L (22-30); Chloride 108 mmol/L (98-107); Glucose 92 mg/dL (74-99); Magnesium 2.3 mg/dL (1.6-2.3); Non-African American GFR(CKD) 19 (>60 ml/min/1.73 sqM); Potassium 4.3 mmol/L (3.5-5.1); Sodium 141 mmol/L (137-145)
--- NOTE | 2023-07-23 12:12 | P.PN ---
Subjective Patient is seen in follow-up for acute kidney injury on chronic kidney disease. Renal function improving with IV fluids. Admits to good urine output. Oral intake fair. No vomiting or diarrhea. Hemodynamically stable. Vital signs are stable. General: No acute distress. HEENT: Head exam is unremarkable. LUNGS: No audible rhonchi or wheezes. HEART: Rate and Rhythm are regular. ABDOMEN: Nontender. EXTREMITITES: No edema. Objective - Vital Signs Vital signs: Vital Signs Temp 98.3 F 07/23/23 07:30 Pulse 49 L 07/23/23 07:30 Resp 18 07/23/23 07:30 BP 134/56 07/23/23 07:30 Pulse Ox 99 07/23/23 07:30 FiO2 Intake & Output 07/22/23 07/23/23 07/23/23 19:59 06:59 18:59 Intake Total 600 Balance 600 Intake: Intake, IV Titration 600 Amount Sodium Chloride 0.9% 1, 600 000 ml @ 75 mls/hr IV . [id number] [facility] Rx#:[id number] Other: # Voids - Labs CBC & Chem 7: 07/22/23 07:50 07/23/23 06:35 Labs: Abnormal Lab Results - Last 24 Hours (Table) 07/22/23 07/23/23 Range/Units 03:26 06:35 Chloride 108 H (98-107) mmol/L BUN 34 H (7-17) mg/dL Creatinine 2.42 H (0.52-1.04) mg/dL Ur Random Sodium 32 L (40-220) mmol/L Ur Random Potassium 14.9 L (25.0-125.0) mmol/L Assessment and Plan Plan: Assessment: 1. Acute kidney injury secondary to ATN secondary to hypovolemia further worsened with the use of diuretics, ARB. UA benign. No hydronephrosis noted on kidney ultrasound. Left kidney atrophic. Creatinine 5.39 on admission and is 2.42 today. 2. Mild hyperkalemia secondary to acute kidney injury, Aldactone and entresto. Improved. 3. Chronic systolic CHF with ejection fraction of 20-25% with severe mitral and tricuspid regurgitation. 4. Chronic kidney disease stage IIIB with baseline creatinine 1.3-1.5 secondary to nephrosclerosis. Plan: Maintain IV fluids. Continue to hold diuretics and antihypertensives. Avoid nephrotoxins. Continue to monitor renal function and urine output.
[2023-07-23] MEDS: FAMOTIDINE 20 MG TAB PO SCH (20:35)
--- NOTE | 2023-07-24 01:15 | P.PN ---
Subjective Progress Note Date: 07/22/23 Patient is a 71-year-old female with a known history of chronic CHF with systolic dysfunction ejection fraction 20 to 25%, cardiomyopathy, hypertension, hyperlipidemia, sickle cell trait and prior history of TIAs and dementia presents to ER with complaints of nausea, vomiting and not feeling well for the past 10 days. Patient also having poor oral intake. Patient is somewhat poor historian due to short-term memory loss. States that she had right flank pain this afternoon and felt like fever and mild chills. Denies any dysuria or hematuria. Denies any complaints of chest pain or shortness of breath. No complaints of leg swelling. No cough or sputum production. Patient was brought to the hospital by her son. EKG showed sinus bradycardia Blood pressure 92/57 on admission heart rate 48 and also ox 96% on room air. Respiratory rate 18 Laboratory data showed WBC 7.7 hemoglobin 13.1 platelets 256 Sodium 138 potassium 5.3 chloride 97 bicarb is 26 BUN 70 and creatinine 5.39, blood sugar is 134, Lactic acid 3.5, serum osmolality 311 Hypercalcemia 10.3. Liver enzymes are not elevated. Total bili 0.8 and troponin 0.037, proBNP 248. 07/22/2023 Patient is lying in the bed. Awake alert and mentation is at baseline. Tolerating oral diet slowly. No complaints of chest pain or shortness of b reath. No flank pain. No fever no chills. Chest x-ray this morning showed mild cardiomegaly. No acute cardiopulmonary process. Ultrasound renal showed no evidence for obstructive uropathy. Cholelithiasis. Laboratory pressure BUN 59 and creatinine improved to 4.19 today. Patient is voiding.. Nephrology is on board. Current medications reviewed. Objective - Vital Signs Vital signs: Vital Signs Temp 98.2 F 07/22/23 06:58 Pulse 49 L 07/22/23 06:58 Resp 18 07/22/23 06:58 BP 110/52 07/22/23 06:58 Pulse Ox 100 07/22/23 06:58 FiO2 Intake & Output 07/21/23 07/22/23 07/22/23 18:59 06:59 18:59 Weight 49.895 kg 49.895 kg Other: # Voids 2 - Exam PHYSICAL EXAMINATION: Patient is lying in the bed. Awake alert and oriented x2-3. HEENT: Normocephalic. Neck is supple. Pupils reactive. Nostrils clear. Oral cavity is dry. Neck reveals no JVD, carotid bruits, or thyromegaly. CHEST EXAMINATION: Trachea is central. Symmetrical expansion. Lung medina clear to auscultation and percussion. CARDIAC: Normal S1, S2 with no gallops. No murmurs ABDOMEN: Soft. Bowel sounds present. Nontender. No organomegaly. No abdominal bruits. Extremities: reveal no edema. No clubbing or cyanosis Neurologically awake, alert, oriented x2. Able to move all extremities. No gross focal deficits noted Skin: No rash or skin lesions. Psychiatric: Coperative. Could not be assessed completely., Musculoskeletal: No joint swelling or deformity. - Labs CBC & Chem 7: 07/22/23 07:50 07/23/23 06:35 Labs: Abnormal Lab Results - Last 24 Hours (Table) 07/21/23 07/21/23 07/21/23 Range/Units 16:58 16:58 16:58 Potassium 5.3 H (3.5-5.1) mmol/L Chloride 97 L (98-107) mmol/L BUN 70 H (7-17) mg/dL Creatinine 5.39 H (0.52-1.04) mg/dL Glucose 134 H (74-99) mg/dL Osmolality (280-301) mosm/kg Plasma Lactic Acid Reuben 3.5 H* (0.7-2.0) mmol/L Calcium 10.3 H (8.4-10.2) mg/dL Troponin I 0.037 H* (0.000-0.034) ng/mL Ur Leukocyte Esterase (Negative) Hyaline Casts (0-2) /lpf Urine Mucus (None) /hpf 07/21/23 07/22/23 07/22/23 Range/Units 16:58 03:26 07:50 Potassium (3.5-5.1) mmol/L Chloride (98-107) mmol/L BUN 59 H (7-17) mg/dL Creatinine 4.19 H (0.52-1.04) mg/dL Glucose (74-99) mg/dL Osmolality 311 H (280-301) mosm/kg Plasma Lactic Acid Reuben (0.7-2.0) mmol/L Calcium (8.4-10.2) mg/dL Troponin I (0.000-0.034) ng/mL Ur Leukocyte Esterase Trace H (Negative) Hyaline Casts 9 H (0-2) /lpf Urine Mucus Rare H (None) /hpf Assessment and Plan Assessment: Acute on chronic disease stage III due to vasomotor nephropathy and possible cardiorenal with underlying cardiomyopathy. Hyperkalemia secondary to acute kidney injury. resolved Lactic acidosis. resolved Mild troponin elevation Nausea vomiting and generalized weakness. Chronic CHF with systolic and diastolic dysfunction. Ejection fraction 20 to 25%. Nonischemic versus ischemic cardiomyopathy. History of ventricular tachycardia Hypertension Hyperlipidemia Sickle cell anemia Dementia/short-term memory loss History of TIA Ongoing nicotine addiction/ smoking Medication noncompliance. DVT prophylaxis with heparin subcu Plan: Patient will be continued on telemetry monitoring. Continue with IV hydration with normal saline and monitor respiratory status closely due to underlying CHF.. Urinalysis and ultrasound renal showed no obstruction. Patient is a poor historian.. Continue with Pepcid and symptomatic management for nausea. Lasix, spironolactone and Entresto is on hold. Continue to hold other blood pressure medications. Nephrology consult is on board Continue to follow closely. Prognosis is guarded at this time. Time with Patient: Greater than 30
--- NOTE | 2023-07-24 01:19 | P.PN ---
Subjective Progress Note Date: 07/23/23 Patient is a 71-year-old female with a known history of chronic CHF with systolic dysfunction ejection fraction 20 to 25%, cardiomyopathy, hypertension, hyperlipidemia, sickle cell trait and prior history of TIAs and dementia presents to ER with complaints of nausea, vomiting and not feeling well for the past 10 days. Patient also having poor oral intake. Patient is somewhat poor historian due to short-term memory loss. States that she had right flank pain this afternoon and felt like fever and mild chills. Denies any dysuria or hematuria. Denies any complaints of chest pain or shortness of breath. No complaints of leg swelling. No cough or sputum production. Patient was brought to the hospital by her son. EKG showed sinus bradycardia Blood pressure 92/57 on admission heart rate 48 and also ox 96% on room air. Respiratory rate 18 Laboratory data showed WBC 7.7 hemoglobin 13.1 platelets 256 Sodium 138 potassium 5.3 chloride 97 bicarb is 26 BUN 70 and creatinine 5.39, blood sugar is 134, Lactic acid 3.5, serum osmolality 311 Hypercalcemia 10.3. Liver enzymes are not elevated. Total bili 0.8 and troponin 0.037, proBNP 248. 07/22/2023 Patient is lying in the bed. Awake alert and mentation is at baseline. Tolerating oral diet slowly. No complaints of chest pain or shortness of b reath. No flank pain. No fever no chills. Chest x-ray this morning showed mild cardiomegaly. No acute cardiopulmonary process. Ultrasound renal showed no evidence for obstructive uropathy. Cholelithiasis. Laboratory pressure BUN 59 and creatinine improved to 4.19 today. Patient is voiding.. Nephrology is on board. 07/23/2023 Patient is sitting in the seat today. Awake alert and oriented. No complaints of chest pain or shortness of breath. Patient did have bowel movement today. No headache or dizziness or lightheadedness. Currently on IV hydration with normal saline at 75 cc/h. Renal function is improving with creatinine level 2.42 today. BUN 34. Potassium level is 4.3. Patient is tolerating oral diet. No nausea vomiting or diarrhea. No complaints of abdominal pain. Current medications reviewed. Objective - Vital Signs Vital signs: Vital Signs Temp 97.9 F 07/23/23 19:35 Pulse 91 11/05/23 19:35 Resp 16 07/23/23 19:35 BP 103/53 07/23/23 19:35 Pulse Ox 98 07/23/23 19:35 FiO2 Intake & Output 07/23/23 07/23/23 07/24/23 06:59 18:59 06:59 Intake Total 600 Balance 600 Intake: Intake, IV Titration 600 Amount Sodium Chloride 0.9% 1, 600 000 ml @ 75 mls/hr IV . [id number] [facility] Rx#:[id number] Other: # Voids - Exam PHYSICAL EXAMINATION: Patient is lying in the bed. Awake alert and oriented x2-3. HEENT: Normocephalic. Neck is supple. Pupils reactive. Nostrils clear. Oral ca vity is dry. Neck reveals no JVD, carotid bruits, or thyromegaly. CHEST EXAMINATION: Trachea is central. Symmetrical expansion. Lung medina clear to auscultation and percussion. CARDIAC: Normal S1, S2 with no gallops. No murmurs ABDOMEN: Soft. Bowel sounds present. Nontender. No organomegaly. No abdominal bruits. Extremities: reveal no edema. No clubbing or cyanosis Neurologically awake, alert, oriented x2. Able to move all extremities. No gross focal deficits noted Skin: No rash or skin lesions. Psychiatric: Coperative. Could not be assessed completely., Musculoskeletal: No joint swelling or deformity. - Labs CBC & Chem 7: 07/22/23 07:50 07/23/23 06:35 Labs: Abnormal Lab Results - Last 24 Hours (Table) 07/23/23 Range/Units 06:35 Chloride 108 H (98-107) mmol/L BUN 34 H (7-17) mg/dL Creatinine 2.42 H (0.52-1.04) mg/dL Assessment and Plan Assessment: Acute on chronic disease stage III due to vasomotor nephropathy and possible cardiorenal with underlying cardiomyopathy. Hyperkalemia secondary to acute kidney injury. resolved Lactic acidosis. resolved Mild troponin elevation Nausea vomiting and generalized weakness. Chronic CHF with systolic and diastolic dysfunction. Ejection fraction 20 to 25%. Nonischemic versus ischemic cardiomyopathy. History of ventricular tachycardia Hypertension Hyperlipidemia Sickle cell anemia Dementia/short-term memory loss History of TIA Ongoing nicotine addiction/ smoking Medication noncompliance. DVT prophylaxis with heparin subcu Plan: Patient will be continued on telemetry monitoring. Continue with IV hydration with normal saline and monitor respiratory status closely due to underlying C HF.. Urinalysis and ultrasound renal showed no obstruction. Patient is a poor historian.. Continue with Pepcid and symptomatic management for nausea. Lasix, spironolactone and Entresto is on hold. Continue to hold other blood pressure medications. Nephrology consult is on board Continue to follow closely. Prognosis is guarded at this time.
[2023-07-24] MEDS: SODIUM CHLORIDE 0.9% 1,000 ML IV SCH (05:45)
[2023-07-24] MEDS: CLOPIDOGREL 75 MG TAB PO SCH (08:06)
[2023-07-24] MEDS: AMIODARONE 200 MG TAB PO SCH ×2 (08:06→20:00)
[2023-07-24] MEDS: HEPARIN SODIUM,PORCINE 5,000 UNIT/ML 1 ML VIAL SQ SCH ×2 (08:06→20:44)
[2023-07-24] MEDS: ATORVASTATIN 40 MG TAB PO SCH (08:06)
[2023-07-24 08:42] LABS: BUN/Creat Ratio 12.06 Ratio (12.00-20.00); Blood Urea Nitrogen 20.5 mg/dL (9.0-27.0); Calcium 8.4 mg/dL (8.7-10.3); Carbon Dioxide 25.9 mmol/L (21.6-31.8); Chloride 113 mmol/L (96-109); Glucose 76 mg/dL (70-110); Potassium 4.7 mmol/L (3.5-5.5); Sodium 146 mmol/L (135-145)
--- NOTE | 2023-07-24 13:01 | P.PN ---
Subjective For follow-up for acute kidney injury. Renal function has improved significantly with creatinine down to 1.7 from 5.3 on initial admission. Currently maintained on IV fluids. No evidence of obstructive uropathy on ultrasound. No significant complaints today. Objective - Vital Signs Vital signs: Vital Signs Temp 97.8 F 07/24/23 07:10 Pulse 59 L 07/24/23 07:10 Resp 16 07/24/23 08:00 BP 148/55 07/24/23 07:10 Pulse Ox 99 07/24/23 07:10 FiO2 Intake & Output 07/23/23 07/24/23 07/24/23 18:59 06:59 18:59 Intake Total 600 Balance 600 Intake: Intake, IV Titration 600 Amount Sodium Chloride 0.9% 1, 600 000 ml @ 75 mls/hr IV . 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 Acute kidney injury secondary to ATN secondary to hypovolemia further worsened with the use of diuretics, ARB. UA benign. No hydronephrosis noted on kidney ultrasound. Left kidney atrophic. Creatinine 5.39 on admission and is 1.7 today. 2. Mild hyperkalemia secondary to acute kidney injury, Aldactone and entresto. Improved. 3. Chronic systolic CHF with ejection fraction of 20-25% with severe mitral and tricuspid regurgitation. 4. Chronic kidney disease stage IIIB with baseline creatinine 1.3-1.5 secondary to nephrosclerosis. Plan: Continue IV fluids. Change to half normal saline. Repeat labs in a.m.
[2023-07-24] MEDS: SODIUM CHLORIDE 0.45% 1,000 ML IV SCH (13:26)
[2023-07-24] MEDS: FAMOTIDINE 20 MG TAB PO SCH (20:44)
[2023-07-25] MEDS: SODIUM CHLORIDE 0.45% 1,000 ML IV SCH ×2 (02:39→17:31)
[2023-07-25] MEDS: HEPARIN SODIUM,PORCINE 5,000 UNIT/ML 1 ML VIAL SQ SCH ×2 (08:33→21:24)
[2023-07-25] MEDS: CLOPIDOGREL 75 MG TAB PO SCH (08:33)
[2023-07-25] MEDS: ATORVASTATIN 40 MG TAB PO SCH (08:33)
[2023-07-25] MEDS: AMIODARONE 200 MG TAB PO SCH ×2 (08:33→21:24)
--- NOTE | 2023-07-25 13:04 | P.PN ---
Subjective For follow-up for acute kidney injury. Renal function has improved significantly with creatinine down to 1.7 from 5.3 on initial admission. Currently maintained on IV fluids. No evidence of obstructive uropathy on ultrasound. No significant complaints today. Patient's IV access was lost. She is currently refusing another IV. Labs pending from today. Objective - Vital Signs Vital signs: Vital Signs Temp 98.4 F 07/25/23 07:12 Pulse 56 L 07/25/23 07:12 Resp 16 07/25/23 07:12 BP 143/62 07/25/23 07:12 Pulse Ox 100 07/25/23 07:12 FiO2 Intake & Output 07/24/23 07/25/23 07/25/23 18:59 06:59 18:59 Intake Total 600 300 Balance 600 300 Intake: Intake, IV Titration 600 300 Amount Sodium Chloride 0.45% 1, 300 300 000 ml @ 75 mls/hr IV . [id number] [facility] Rx#:[id number] Sodium Chloride 0.9% 1, 300 000 ml @ 75 mls/hr IV . 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 Acute kidney injury secondary to ATN secondary to hypovolemia further worsened with the use of diuretics, ARB. UA benign. No hydronephrosis noted on kidney ultrasound. Left kidney atrophic. Creatinine 5.39 on admission and is 1.7 yesterday. 2. Mild hyperkalemia secondary to acute kidney injury, Aldactone and entresto. Improved. 3. Chronic systolic CHF with ejection fraction of 20-25% with severe mitral and tricuspid regurgitation. 4. Chronic kidney disease stage IIIB with baseline creatinine 1.3-1.5 secondary to nephrosclerosis. Plan: Check labs today. If renal function continues to improve we can keep off of IV fluids. Patient is encouraged to increase oral intake.
[2023-07-25 14:49] VITALS: BMI 20.7
[2023-07-25 15:21] LABS: Basophils % (A) 1 %; Eosinophils # (A) 0.2 k/uL (0-0.7); Eosinophils % (A) 4 %; HCT 38.4 % (34.0-46.0); HGB 12.3 gm/dL (11.4-16.0); Lymphocytes # (A) 1.7 k/uL (1.0-4.8); Lymphocytes % (A) 30 %; MCH 27.1 pg (25.0-35.0); MCHC 32.1 g/dL (31.0-37.0); MCV 84.5 fL (80.0-100.0); Mean Platelet Volume 9.8; Monocytes # (A) 0.2 k/uL (0-1.0); Monocytes % (A) 3 %; Neutrophils # (A) 3.5 k/uL (1.3-7.7); Neutrophils % (A) 61 %; Platelet Count 182 k/uL (150-450); RBC 4.55 m/uL (3.80-5.40); RDW 13.4 % (11.5-15.5); WBC 5.8 k/uL (3.8-10.6)
[2023-07-25 16:57] LABS: ALT 17 U/L (8-44); AST 20 U/L (13-35); Albumin 3.3 d/dL (3.8-4.9); Albumin/Globulin Ratio 1.43 Ratio (1.60-3.17); Alkaline Phosphatase 92 U/L (41-126); BUN/Creat Ratio 10.43 Ratio (12.00-20.00); Blood Urea Nitrogen 14.6 mg/dL (9.0-27.0); Calcium 8.8 mg/dL (8.7-10.3); Carbon Dioxide 22.5 mmol/L (21.6-31.8); Chloride 109 mmol/L (96-109); Globulin 2.3 d/dL (1.6-3.3); Glucose 92 mg/dL (70-110); Magnesium 1.8 mg/dL (1.5-2.4); Potassium 4.4 mmol/L (3.5-5.5); Sodium 140 mmol/L (135-145); Total Bilirubin 0.3 mg/dL (0.3-1.2); Total Protein 5.6 d/dL (6.2-8.2)
[2023-07-25] MEDS: FAMOTIDINE 20 MG TAB PO SCH (21:24)
--- NOTE | 2023-07-25 23:12 | P.PN ---
Subjective Progress Note Date: 07/25/23 Patient is a 71-year-old female with a known history of chronic CHF with systolic dysfunction ejection fraction 20 to 25%, cardiomyopathy, hypertension, hyperlipidemia, sickle cell trait and prior history of TIAs and dementia presents to ER with complaints of nausea, vomiting and not feeling well for the past 10 days. Patient also having poor oral intake. Patient is somewhat poor historian due to short-term memory loss. States that she had right flank pain this afternoon and felt like fever and mild chills. Denies any dysuria or hematuria. Denies any complaints of chest pain or shortness of breath. No complaints of leg swelling. No cough or sputum production. Patient was brought to the hospital by her son. EKG showed sinus bradycardia Blood pressure 92/57 on admission heart rate 48 and also ox 96% on room air. Respiratory rate 18 Laboratory data showed WBC 7.7 hemoglobin 13.1 platelets 256 Sodium 138 potassium 5.3 chloride 97 bicarb is 26 BUN 70 and creatinine 5.39, blood sugar is 134, Lactic acid 3.5, serum osmolality 311 Hypercalcemia 10.3. Liver enzymes are not elevated. Total bili 0.8 and troponin 0.037, proBNP 248. 07/22/2023 Patient is lying in the bed. Awake alert and mentation is at baseline. Tolerating oral diet slowly. No complaints of chest pain or shortness of b reath. No flank pain. No fever no chills. Chest x-ray this morning showed mild cardiomegaly. No acute cardiopulmonary process. Ultrasound renal showed no evidence for obstructive uropathy. Cholelithiasis. Laboratory pressure BUN 59 and creatinine improved to 4.19 today. Patient is voiding.. Nephrology is on board. 07/23/2023 Patient is sitting in the seat today. Awake alert and oriented. No complaints of chest pain or shortness of breath. Patient did have bowel movement today. No headache or dizziness or lightheadedness. Currently on IV hydration with normal saline at 75 cc/h. Renal function is improving with creatinine level 2.42 today. BUN 34. Potassium level is 4.3. Patient is tolerating oral diet. No nausea vomiting or diarrhea. No complaints of abdominal pain. 07/24/2023 Patient is currently sitting in the chair. Awake alert and baseline cognitive impairment. No complaints of chest pain or shortness of breath no nausea vomiting. No cough or sputum production. Patient is being current on IV hydration with normal saline. Laboratory showed sodium 146, potassium 4.7 chloride 103, BUN 20.5 and creatinine 1.7 and calcium 8.4. Patient has been afebrile. 07/25/2023 Patient is resting in the bed. Awake alert and oriented x2. Mentation is at baseline. No complaints of chest pain or shortness of breath. No nausea vomiting abdominal pain or diarrhea. Patient is tolerating oral diet. Blood pressure improved to 137/67, pulse 59 and respiration 15. Patient has been afebrile. Repeat laboratory data showed BUN 14.6 and creatinine 1.4., WBC 5.8 hemoglobin 12.3 and platelets 182. Magnesium 1.8. Current medications reviewed. Objective - Vital Signs Vital signs: Vital Signs Temp 98.1 F 07/25/23 19:50 Pulse 64 07/25/23 19:50 Resp 16 07/25/23 19:50 BP 154/77 07/25/23 19:50 Pulse Ox 91 L 07/25/23 13:15 FiO2 Intake & Output 07/25/23 07/25/23 07/26/23 06:59 18:59 06:59 Intake Total 300 Balance 300 Weight 49.895 kg Intake: Intake, IV Titration 300 Amount Sodium Chloride 0.45% 1, 300 000 ml @ 75 mls/hr IV . [id number] Rx#:[id number] Other: # Voids 1 1 - Exam PHYSICAL EXAMINATION: Patient is lying in the bed. Awake alert and oriented x2-3. HEENT: Normocephalic. Neck is supple. Pupils reactive. Nostrils clear. Oral cavity is dry. Neck reveals no JVD, carotid bruits, or thyromegaly. CHEST EXAMINATION: Trachea is central. Symmetrical expansion. Lung medina clear to auscultation and percussion. CARDIAC: Normal S1, S2 with no gallops. No murmurs ABDOMEN: Soft. Bowel sounds present. Nontender. No organomegaly. No abdominal bruits. Extremities: reveal no edema. No clubbing or cyanosis Neurologically awake, alert, oriented x2. Able to move all extremities. No gross focal deficits noted Skin: No rash or skin lesions. Psychiatric: Coperative. Could not be assessed completely., Musculoskeletal: No joint swelling or deformity. - Labs CBC & Chem 7: 07/25/23 14:05 07/25/23 11:17 Labs: Abnormal Lab Results - Last 24 Hours (Table) 07/25/23 Range/Units 11:17 Est GFR (CKD-EPI) 40 L (>=60) BUN/Creatinine Ratio 10.43 L (12.00-20.00) Ratio Total Protein 5.6 L (6.2-8.2) d/dL Albumin 3.3 L (3.8-4.9) d/dL Albumin/Globulin Ratio 1.43 L (1.60-3.17) Ratio Assessment and Plan Assessment: Acute on chronic disease stage III due to vasomotor nephropathy and possible cardiorenal with underlying cardiomyopathy. improving Hyperkalemia secondary to acute kidney injury. resolved Lactic acidosis. resolved Mild troponin elevation Nausea vomiting and generalized weakness. Chronic CHF with systolic and diastolic dysfunction. Ejection fraction 20 to 25%. Nonischemic versus ischemic cardiomyopathy. History of ventricular tachycardia Hypertension Hyperlipidemia Sickle cell anemia Dementia/short-term memory loss History of TIA Ongoing nicotine addiction/ smoking Medication noncompliance. DVT prophylaxis with heparin subcu Plan: Patient will be continued on telemetry monitoring. IV fluids have been discontinued. Renal function is improved. Encourage oral intake.. Urinalysis and ultrasound renal showed no obstruction. Continue with Pepcid and symptomatic management for nausea. Patient will be started back on Imdur, metoprolol and Entresto at lower dose. Continue to monitor blood pressure closely. Lasix and spironolactone is on hold. Nephrology is on board Continue to follow closely. Prognosis is guarded at this time. Time with Patient: Greater than 30
--- NOTE | 2023-07-25 23:30 | P.PN ---
Subjective Progress Note Date: 07/24/23 Patient is a 71-year-old female with a known history of chronic CHF with systolic dysfunction ejection fraction 20 to 25%, cardiomyopathy, hypertension, hyperlipidemia, sickle cell trait and prior history of TIAs and dementia presents to ER with complaints of nausea, vomiting and not feeling well for the past 10 days. Patient also having poor oral intake. Patient is somewhat poor historian due to short-term memory loss. States that she had right flank pain this afternoon and felt like fever and mild chills. Denies any dysuria or hematuria. Denies any complaints of chest pain or shortness of breath. No complaints of leg swelling. No cough or sputum production. Patient was brought to the hospital by her son. EKG showed sinus bradycardia Blood pressure 92/57 on admission heart rate 48 and also ox 96% on room air. Respiratory rate 18 Laboratory data showed WBC 7.7 hemoglobin 13.1 platelets 256 Sodium 138 potassium 5.3 chloride 97 bicarb is 26 BUN 70 and creatinine 5.39, blood sugar is 134, Lactic acid 3.5, serum osmolality 311 Hypercalcemia 10.3. Liver enzymes are not elevated. Total bili 0.8 and troponin 0.037, proBNP 248. 07/22/2023 Patient is lying in the bed. Awake alert and mentation is at baseline. Tolerating oral diet slowly. No complaints of chest pain or shortness of b reath. No flank pain. No fever no chills. Chest x-ray this morning showed mild cardiomegaly. No acute cardiopulmonary process. Ultrasound renal showed no evidence for obstructive uropathy. Cholelithiasis. Laboratory pressure BUN 59 and creatinine improved to 4.19 today. Patient is voiding.. Nephrology is on board. 07/23/2023 Patient is sitting in the seat today. Awake alert and oriented. No complaints of chest pain or shortness of breath. Patient did have bowel movement today. No headache or dizziness or lightheadedness. Currently on IV hydration with normal saline at 75 cc/h. Renal function is improving with creatinine level 2.42 today. BUN 34. Potassium level is 4.3. Patient is tolerating oral diet. No nausea vomiting or diarrhea. No complaints of abdominal pain. 07/24/2023 Patient is currently sitting in the chair. Awake alert and baseline cognitive impairment. No complaints of chest pain or shortness of breath no nausea vomiting. No cough or sputum production. Patient is being current on IV hydration with normal saline. Laboratory showed sodium 146, potassium 4.7 chloride 103, BUN 20.5 and creatinine 1.7 and calcium 8.4. Patient has been afebrile. Current medications reviewed. Objective - Vital Signs Vital signs: Vital Signs Temp 97.9 F 07/24/23 13:52 Pulse 55 L 07/24/23 13:52 Resp 14 07/24/23 13:52 BP 112/65 07/24/23 13:52 Pulse Ox 97 07/24/23 13:52 FiO2 Intake & Output 07/23/23 07/24/23 07/24/23 18:59 06:59 18:59 Intake Total 600 600 Balance 600 600 Intake: Intake, IV Titration 600 600 Amount Sodium Chloride 0.45% 1, 300 000 ml @ 75 mls/hr IV . [id number] [facility] Rx#:[id number] Sodium Chloride 0.9% 1, 600 300 000 ml @ 75 mls/hr IV . [id number] [facility] Rx#:[id number] Other: Voiding Method Toilet # Voids 3 3 - Exam PHYSICAL EXAMINATION: Patient is lying in the bed. Awake alert and oriented x2-3. HEENT: Normocephalic. Neck is supple. Pupils reactive. Nostrils clear. Oral cavity is dry. Neck reveals no JVD, carotid bruits, or thyromegaly. CHEST EXAMINATION: Trachea is central. Symmetrical expansion. Lung medina clear to auscultation and percussion. CARDIAC: Normal S1, S2 with no gallops. No murmurs ABDOMEN: Soft. Bowel sounds present. Nontender. No organomegaly. No abdominal bruits. Extremities: reveal no edema. No clubbing or cyanosis Neurologically awake, alert, oriented x2. Able to move all extremities. No gross focal deficits noted Skin: No rash or skin lesions. Psychiatric: Coperative. Could not be assessed completely., Musculoskeletal: No joint swelling or deformity. - Labs CBC & Chem 7: 07/25/23 14:05 07/25/23 11:17 Labs: Abnormal Lab Results - Last 24 Hours (Table) 07/24/23 Range/Units 05:31 Sodium 146 H (135-145) mmol/L Chloride 113 H (96-109) mmol/L Creatinine 1.7 H (0.6-1.5) mg/dL Est GFR (CKD-EPI) 32 L (>=60) Calcium 8.4 L (8.7-10.3) mg/dL Assessment and Plan Assessment: Acute on chronic disease stage III due to vasomotor nephropathy and possible cardiorenal with underlying cardiomyopathy. improving Hyperkalemia secondary to acute kidney injury. resolved Lactic acidosis. resolved Mild troponin elevation Nausea vomiting and generalized weakness. Chronic CHF with systolic and diastolic dysfunction. Ejection fraction 20 to 25%. Nonischemic versus ischemic cardiomyopathy. History of ventricular tachycardia Hypertension Hyperlipidemia Sickle cell anemia Dementia/short-term memory loss History of TIA Ongoing nicotine addiction/ smoking Medication noncompliance. DVT prophylaxis with heparin subcu Plan: Patient will be continued on telemetry monitoring. IV fluids changed to half- normal saline. / monitor respiratory status closely due to underlying CHF.. Urinalysis and ultrasound renal showed no obstruction. Continue with Pepcid and symptomatic management for nausea. Lasix, spironolactone and Entresto is on hold. Continue to hold other blood pressure medications. Nephrology is on board Continue to follow closely. Prognosis is guarded at this time.
[2023-07-26] MEDS ORDERED: MAGNESIUM SULFATE-D5W PMX 1 GM in DEXTROSE/WATER 1 100ML.BAG IVPB ONE
[2023-07-26] MEDS: METOPROLOL TARTRATE 12.5 MG TAB PO SCH ×2 (08:06→21:20)
[2023-07-26] MEDS: ISOSORBIDE MONONITRATE ER 30 MG TAB.ER.24H PO SCH (08:06)
[2023-07-26] MEDS: AMIODARONE 200 MG TAB PO SCH ×2 (08:06→21:20)
[2023-07-26] MEDS: CLOPIDOGREL 75 MG TAB PO SCH (08:06)
[2023-07-26] MEDS: HEPARIN SODIUM,PORCINE 5,000 UNIT/ML 1 ML VIAL SQ SCH ×2 (08:06→21:20)
[2023-07-26] MEDS: ATORVASTATIN 40 MG TAB PO SCH (08:06)
[2023-07-26] MEDS: SACUBITRIL/VALSARTAN 24 MG-26 MG TABLET PO SCH ×2 (08:06→21:20)
[2023-07-26 09:47] LABS: African American GFR (CKD) 40 (>60 ml/min/1.73 sqM); Anion Gap 8 mmol/L; Blood Urea Nitrogen 16 mg/dL (7-17); Calcium 8.2 mg/dL (8.4-10.2); Carbon Dioxide 20 mmol/L (22-30); Chloride 111 mmol/L (98-107); Glucose 132 mg/dL (74-99); Non-African American GFR(CKD) 35 (>60 ml/min/1.73 sqM); Potassium 3.9 mmol/L (3.5-5.1); Sodium 139 mmol/L (137-145)
--- NOTE | 2023-07-26 18:00 | P.PN ---
Subjective For follow-up for acute kidney injury. Renal function has improved significantly with creatinine down to 1.5 from 5.3 on initial admission. No evidence of obstructive uropathy on ultrasound. No significant complaints today. Patient's IV access was lost. She is currently refusing another IV. Cr stable at 1.5, was 1.4 yesterday. No IVF yesterday. Objective - Vital Signs Vital signs: Vital Signs Temp 98.4 F 07/26/23 16:20 Pulse 50 L 07/26/23 16:20 Resp 16 07/26/23 16:20 BP 133/70 07/26/23 16:24 Pulse Ox 98 07/26/23 16:20 FiO2 Intake & Output 07/25/23 07/26/23 07/26/23 18:59 06:59 18:59 Intake Total 300 600 Balance 300 600 Weight 49.895 kg Intake: Intake, IV Titration 300 Amount Sodium Chloride 0.45% 1, 300 000 ml @ 75 mls/hr IV . 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 Acute kidney injury secondary to ATN secondary to hypovolemia further worsened with the use of diuretics, ARB. UA benign. No hydronephrosis noted on kidney ultrasound. Left kidney atrophic. Creatinine 5.39 on admission and is 1.5 now. 2. Mild hyperkalemia secondary to acute kidney injury, Aldactone and entresto. Improved. 3. Chronic systolic CHF with ejection fraction of 20-25% with severe mitral and tricuspid regurgitation. 4. Chronic kidney disease stage IIIB with baseline creatinine 1.3-1.5 secondary to nephrosclerosis. Plan: OK to continue off of IVF. Patient is encouraged to increase oral intake.
[2023-07-26] MEDS: FAMOTIDINE 20 MG TAB PO SCH (21:20)
--- NOTE | 2023-07-27 00:19 | P.PN ---
Subjective Progress Note Date: 07/27/23 Patient is a 71-year-old female with a known history of chronic CHF with systolic dysfunction ejection fraction 20 to 25%, cardiomyopathy, hypertension, hyperlipidemia, sickle cell trait and prior history of TIAs and dementia presents to ER with complaints of nausea, vomiting and not feeling well for the past 10 days. Patient also having poor oral intake. Patient is somewhat poor historian due to short-term memory loss. States that she had right flank pain this afternoon and felt like fever and mild chills. Denies any dysuria or hematuria. Denies any complaints of chest pain or shortness of breath. No complaints of leg swelling. No cough or sputum production. Patient was brought to the hospital by her son. EKG showed sinus bradycardia Blood pressure 92/57 on admission heart rate 48 and also ox 96% on room air. Respiratory rate 18 Laboratory data showed WBC 7.7 hemoglobin 13.1 platelets 256 Sodium 138 potassium 5.3 chloride 97 bicarb is 26 BUN 70 and creatinine 5.39, blood sugar is 134, Lactic acid 3.5, serum osmolality 311 Hypercalcemia 10.3. Liver enzymes are not elevated. Total bili 0.8 and troponin 0.037, proBNP 248. 07/22/2023 Patient is lying in the bed. Awake alert and mentation is at baseline. Tolerating oral diet slowly. No complaints of chest pain or shortness of b reath. No flank pain. No fever no chills. Chest x-ray this morning showed mild cardiomegaly. No acute cardiopulmonary process. Ultrasound renal showed no evidence for obstructive uropathy. Cholelithiasis. Laboratory pressure BUN 59 and creatinine improved to 4.19 today. Patient is voiding.. Nephrology is on board. 07/23/2023 Patient is sitting in the seat today. Awake alert and oriented. No complaints of chest pain or shortness of breath. Patient did have bowel movement today. No headache or dizziness or lightheadedness. Currently on IV hydration with normal saline at 75 cc/h. Renal function is improving with creatinine level 2.42 today. BUN 34. Potassium level is 4.3. Patient is tolerating oral diet. No nausea vomiting or diarrhea. No complaints of abdominal pain. 07/24/2023 Patient is currently sitting in the chair. Awake alert and baseline cognitive impairment. No complaints of chest pain or shortness of breath no nausea vomiting. No cough or sputum production. Patient is being current on IV hydration with normal saline. Laboratory showed sodium 146, potassium 4.7 chloride 103, BUN 20.5 and creatinine 1.7 and calcium 8.4. Patient has been afebrile. 07/25/2023 Patient is resting in the bed. Awake alert and oriented x2. Mentation is at baseline. No complaints of chest pain or shortness of breath. No nausea vomiting abdominal pain or diarrhea. Patient is tolerating oral diet. Blood pressure improved to 137/67, pulse 59 and respiration 15. Patient has been afebrile. Repeat laboratory data showed BUN 14.6 and creatinine 1.4., WBC 5.8 hemoglobin 12.3 and platelets 182. Magnesium 1.8. 07/26/2023 Patient is resting in the bed. Awake alert and mentation is at baseline. No complaints of chest pain or shortness of breath. Patient is tolerating oral diet today. Otherwise renal function is slightly worsened with creatinine level 1.5 today. Blood sugar is 132 and calcium 8.2. Blood pressure is also elevated and was started back on home regimen. Diuretics still on hold. Nephrology is on board. Other laboratory data reviewed. Current medications reviewed. Objective - Vital Signs Vital signs: Vital Signs Temp 98.5 F 07/26/23 19:50 Pulse 54 L 07/26/23 19:50 Resp 18 07/26/23 19:50 BP 145/69 07/26/23 19:50 Pulse Ox 98 07/26/23 19:50 FiO2 Intake & Output 07/26/23 07/26/23 07/27/23 06:59 18:59 06:59 Intake Total 600 Balance 600 Intake: Oral 600 Other: # Voids 1 1 # Bowel Movements 1 - Exam PHYSICAL EXAMINATION: Patient is lying in the bed. Awake alert and oriented x2-3. HEENT: Normocephalic. Neck is supple. Pupils reactive. Nostrils clear. Oral cavity is dry. Neck reveals no JVD, carotid bruits, or thyromegaly. CHEST EXAMINATION: Trachea is central. Symmetrical expansion. Lung medina clear to auscultation and percussion. CARDIAC: Normal S1, S2 with no gallops. No murmurs ABDOMEN: Soft. Bowel sounds present. Nontender. No organomegaly. No abdominal bruits. Extremities: reveal no edema. No clubbing or cyanosis Neurologically awake, alert, oriented x2. Able to move all extremities. No gross focal deficits noted Skin: No rash or skin lesions. Psychiatric: Coperative. Could not be assessed completely., Musculoskeletal: No joint swelling or deformity. - Labs CBC & Chem 7: 07/27/23 06:46 07/28/23 07:02 Labs: Abnormal Lab Results - Last 24 Hours (Table) 07/26/23 Range/Units 09:01 Chloride 111 H (98-107) mmol/L Carbon Dioxide 20 L (22-30) mmol/L Creatinine 1.50 H (0.52-1.04) mg/dL Glucose 132 H (74-99) mg/dL Calcium 8.2 L (8.4-10.2) mg/dL Assessment and Plan Assessment: Acute on chronic disease stage III due to vasomotor nephropathy and possible cardiorenal with underlying cardiomyopathy. improving Hyperkalemia secondary to acute kidney injury. resolved Lactic acidosis. resolved Mild troponin elevation Nausea vomiting and generalized weakness. Chronic CHF with systolic and diastolic dysfunction. Ejection fraction 20 to 25%. Nonischemic versus ischemic cardiomyopathy. History of ventricular tachycardia Hypertension Hyperlipidemia Sickle cell anemia Dementia/short-term memory loss History of TIA Ongoing nicotine addiction/ smoking Medication noncompliance. DVT prophylaxis with heparin subcu Plan: Patient will be continued on telemetry monitoring. IV fluids have been disco ntinued. Renal function is improved. Encourage oral intake.. Urinalysis and ultrasound renal showed no obstruction. Continue with Pepcid and symptomatic management for nausea. Patient will be started back on Imdur, metoprolol and Entresto at lower dose. Continue to monitor blood pressure closely. Lasix and spironolactone is on hold. Nephrology is on board. Consider cardiology evaluation for titration of CHF medications. Continue to follow closely. Prognosis is guarded at this time.
[2023-07-27] MEDS: SACUBITRIL/VALSARTAN 24 MG-26 MG TABLET PO SCH (08:45)
[2023-07-27] MEDS: METOPROLOL TARTRATE 12.5 MG TAB PO SCH ×2 (08:45→20:13)
[2023-07-27] MEDS: HEPARIN SODIUM,PORCINE 5,000 UNIT/ML 1 ML VIAL SQ SCH ×2 (08:45→20:13)
[2023-07-27] MEDS: AMIODARONE 200 MG TAB PO SCH (08:45)
[2023-07-27] MEDS: ATORVASTATIN 40 MG TAB PO SCH (08:45)
[2023-07-27] MEDS: CLOPIDOGREL 75 MG TAB PO SCH (08:45)
[2023-07-27] MEDS: ISOSORBIDE MONONITRATE ER 30 MG TAB.ER.24H PO SCH (08:45)
[2023-07-27 11:50] LABS: Blood Urea Nitrogen 13.5 mg/dL (9.0-27.0); Calcium 8.9 mg/dL (8.7-10.3); Carbon Dioxide 25.6 mmol/L (21.6-31.8); Chloride 110 mmol/L (96-109); Glucose 108 mg/dL (70-110); Potassium 4.5 mmol/L (3.5-5.5); Sodium 143 mmol/L (135-145)
[2023-07-27 11:53] LABS: Basophils # (A) 0.05 X 10*3/uL (0.00-0.10); Basophils % (A) 0.8 %; Eosinophils # (A) 0.29 X 10*3/uL (0.04-0.35); Eosinophils % (A) 4.4 %; HGB 10.4 g/dL (12.0-15.0); Lymphocytes # (A) 2.32 X 10*3/uL (0.90-5.00); Lymphocytes % (A) 35.2 %; MCH 26.5 pg (27.0-32.0); MCHC 32.5 g/dL (32.0-37.0); MCV 81.4 FL (80.0-97.0); Mean Platelet Volume 12.2 FL (9.5-12.2); Monocytes # (A) 0.61 X 10*3/uL (0.20-1.00); Monocytes % (A) 9.2 %; NRBC Per 100 WBC 0 X 10*3/uL (0.00-0.01); Neutrophils # (A) 3.31 X 10*3/uL (1.80-7.70); Neutrophils % (A) 50.1 %; Platelet Count 216 X 10*3/uL (140-440); RBC 3.93 X 10*6/uL (4.10-5.20)
[2023-07-27] MEDS: hydrALAZINE HCL 25 MG TAB PO SCH ×2 (12:00→20:13)
--- NOTE | 2023-07-27 12:21 | P.CRDCN ---
History of Present Illness History of present illness: HISTORY OF PRESENT ILLNESS: This is a 71-year-old female with a past medical history significant for cardiomyopathy, valvular heart disease, hypertension, hyperlipidemia, TIA, and congestive heart failure. Patient follows in the office with Dr. Bear. We have been asked to see the patient in consultation for hypertension. Patient examined at the bedside. Patient states she is unsure as to why she is in the hospital. She does report that she was nauseated at home. She states that she was not vomiting and did not have any diarrhea. At the time of examination, the patient denies any chest pain or pressure. She denies any shortness of breath. Blood pressure elevated with a recent reading of 173/76. Heart rate around 50. Patient was asked about her oral medication list and she is unsure of what medications she is currently taking. She does not believe she is taking amiodarone. She is unable to recall if she is still taking Entresto at home. She states her son would be able to verify her home medication list. * EKG reveals sinus mechanism with nonspecific ST-T wave changes. * Chest xray mild cardio medically. Negative for acute cardiopulmonary process * Most recent echocardiogram obtained in the office in February 2023 revealed ejection fraction 55%, [id number] mitral regurgitation, mild aortic regurgitation, mild tricuspid regurgitation * Cardiac catheterization history: Unknown REVIEW OF SYSTEMS: At the time of my exam: CONSTITUTIONAL: Denies fever or chills. HEENT: Denies blurred vision, vision changes, or eye pain. Denies hemoptysis CARDIOVASCULAR: Denies chest pain. Denies orthopnea. Denies PND. Denies palpitations RESPIRATORY: Denies shortness of breath. GASTROINTESTINAL: Denies abdominal pain. Denies nausea or vomiting. HEMATOLOGIC: Denies bleeding disorders. GENITOURINARY: Denies any blood in urine. SKIN: Denies pruitis. Denies rash. PHYSICAL EXAM: VITAL SIGNS: Reviewed. GENERAL: Well-developed in no acute distress. HEENT: Head is normocephalic. Pupils are equal, round. Sclerae anicteric. Mucous membranes of the mouth are moist. Neck supple. No JVD or thyromegaly LUNGS: Respirations even and unlabored. Lungs essentially clear to auscultation bilaterally. HEART: Regular rate and rhythm. S1 and S2 heard. Systolic murmur noted ABDOMEN: Soft. Nondistended. Nontender. EXTREMITIES: Normal range of motion. No clubbing or cyanosis. Peripheral pulses intact. No lower extremity edema NEUROLOGIC: Awake and alert. Oriented x 3. ASSESSMENT: Nausea Acute on chronic kidney disease Hypertension, uncontrolled History of cardiomyopathy, suspected nonischemic, with recovered EF, most recently 55% in February 2023 Hypertension Hyperlipidemia Valvular heart disease Chronic congestive heart failure with recovered EF, currently euvolemic History of TIA PLAN: Obtain 2-D echo to assess cardiac structure and function Discontinue amiodarone. Unsure of why patient was prescribed amiodarone previously. There is no documented history of atrial fibrillation. Check TSH Add hydralazine 25 mg twice a day Increase Entresto to 49 mg51 mg twice a day Continue to monitor blood pressure Nursing to verify home medication list with patient's son Further recommendations pending patient's course Nurse practitioner note has been reviewed by physician. Signing provider agrees with the documented findings, assessment, and plan of care. Past Medical History Past Medical History: Heart Failure, Hyperlipidemia, Hypertension Additional Past Medical History / Comment(s): Sickle cell anemia, pt states she thinks she may have had a prior TIA History of Any Multi-Drug Resistant Organisms: None Reported Past Surgical History: Tubal Ligation Past Anesthesia/Blood Transfusion Reactions: No Reported Reaction Past Psychological History: No Psychological Hx Reported Smoking Status: Current some day smoker Past Alcohol Use History: None Reported Past Drug Use History: None Reported - Past Family History Father Family Medical History: No Reported History Additional Family Medical History / Comment(s): Father was healthy Mother Family Medical History: Hypertension Medications and Allergies Home Medications Medication Instructions Recorded Confirmed Type Donepezil HCl [Aricept] 10 mg PO DAILY 08/01/21 07/21/23 History Amiodarone [Cordarone] 200 mg PO BID 30 Days #60 tab 08/04/21 07/21/23 Rx Atorvastatin [Lipitor] 40 mg PO DAILY 30 Days #30 tab 08/04/21 07/21/23 Rx Clopidogrel [Plavix] 75 mg PO DAILY 30 Days #30 tab 08/04/21 07/21/23 Rx Furosemide [Lasix] 40 mg PO BID@0900,1600 #60 tab 08/04/21 07/21/23 Rx Isosorbide Mononitrate ER [Imdur] 30 mg PO DAILY #30 tablet 08/04/21 07/21/23 Rx Metoprolol Tartrate [Lopressor] 50 mg PO BID #60 tab 08/04/21 07/21/23 Rx hydrALAZINE HCL [Apresoline] 25 mg PO BID #60 tab 08/04/21 07/21/23 Rx Sacubitril/Valsartan [Entresto 97 1 tab PO BID 09/11/21 07/21/23 History mg-103 mg Tablet] Spironolactone [Aldactone] 25 mg PO DAILY 09/11/21 07/21/23 History Amoxic-Pot Clav 875-125Mg 1 tab PO Q12H 07/21/23 07/21/23 History [Augmentin 875-125] Allergies Allergy/AdvReac Type Severity Reaction Status Date / Time No Known Allergies Allergy Verified 07/21/23 14:59 Physical Exam Vitals: Vital Signs Temp Pulse Resp BP BP Pulse Ox 07/27/23 08:45 45 L 18 07/27/23 07:13 98.6 F 45 L 18 173/76 100 07/27/23 02:06 98.2 F 50 L 17 167/76 100 07/26/23 19:50 98.5 F 54 L 18 145/69 98 07/26/23 16:24 133/70 07/26/23 16:20 98.4 F 50 L 16 98 07/26/23 12:49 98.0 F 65 16 164/85 100 Intake and Output 07/26/23 07/27/23 07/27/23 22:59 06:59 14:59 Intake Total 800 Balance 800 Intake: Oral 800 Other: Voiding Method Toilet # Voids 1 # Bowel Movements 1 Results 07/27/23 06:46 07/27/23 06:46 CBC 07/27/23 Range/Units 06:46 WBC 6.60 (4.50-10.00) X 10*3/uL RBC 3.93 L (4.10-5.20) X 10*6/uL Hgb 10.4 L (12.0-15.0) g/dL Hct 32.0 L (37.2-46.3) % Plt Count 216 (140-440) X 10*3/uL Comprehensive Metabolic Panel 07/27/23 Range/Units 06:46 Sodium 143 (135-145) mmol/L Potassium 4.5 (3.5-5.5) mmol/L Chloride 110 H (96-109) mmol/L Carbon Dioxide 25.6 (21.6-31.8) mmol/L BUN 13.5 (9.0-27.0) mg/dL Creatinine 1.5 (0.6-1.5) mg/dL Glucose 108 (70-110) mg/dL Calcium 8.9 (8.7-10.3) mg/dL Current Medications Generic Name Dose Route Start Last Admin Trade Name Freq PRN Reason Stop Dose Admin Al Hydroxide/Mg Hydroxide 15 ml 07/21/23 17:39 Mag Hydrox/Al Hydrox/Simeth 30 Ml Cup PO Q6HR PRN Indigestion Atorvastatin Calcium 40 mg 07/22/23 09:00 07/27/23 08:45 Atorvastatin 40 Mg Tab PO 40 mg DAILY CHARI Administration Clopidogrel Bisulfate 75 mg 07/22/23 09:00 07/27/23 08:45 Clopidogrel 75 Mg Tab PO 75 mg DAILY CHARI Administration Famotidine 20 mg 07/21/23 21:00 07/26/23 21:20 Famotidine 20 Mg Tab PO 20 mg HS CHARI Administration Heparin Sodium (Porcine) 5,000 unit 07/22/23 09:00 07/27/23 08:45 Heparin Sodium,Porcine 5,000 Unit/Ml 1 Ml Vial SQ 5,000 unit Q12HR CHARI Administration Hydralazine HCl 25 mg 07/27/23 11:15 07/27/23 12:00 Hydralazine Hcl 25 Mg Tab PO 25 mg BID CHARI Administration Isosorbide Mononitrate 30 mg 07/26/23 09:00 07/27/23 08:45 Isosorbide Mononitrate Er 30 Mg Tab.Er.24h PO 30 mg DAILY CHARI Administration Metoprolol Tartrate 12.5 mg 07/26/23 09:00 07/27/23 08:45 Metoprolol Tartrate 12.5 Mg Tab PO 12.5 mg BID CHARI Administration Naloxone HCl 0.2 mg 07/21/23 17:39 Naloxone 0.4 Mg/Ml 1 Ml Vial IV Q2M PRN Opioid Reversal Sacubitril/Valsartan 1 each 07/27/23 21:00 Sacubitril/Valsartan 49 Mg-51 Mg Tablet PO BID CHARI Intake and Output 07/26/23 07/27/23 07/27/23 22:59 06:59 14:59 Intake Total 800 Balance 800 Intake: Oral 800 Other: Voiding Method Toilet # Voids 1 # Bowel Movements 1 07/27/23 06:46 07/27/23 06:46
--- NOTE | 2023-07-27 14:10 | P.PN ---
Subjective For follow-up for acute kidney injury. Renal function has improved significantly with creatinine down to 1.5 from 5.3 on initial admission. No evidence of obstructive uropathy on ultrasound. No significant complaints today. Patient's IV access was lost. She is currently refusing another IV. Cr stable at 1.5 Objective - Vital Signs Vital signs: Vital Signs Temp 97.4 F L 07/27/23 13:55 Pulse 62 07/27/23 13:55 Resp 17 07/27/23 13:55 BP 154/69 07/27/23 13:55 Pulse Ox 99 07/27/23 13:55 FiO2 Intake & Output 07/26/23 07/27/23 07/27/23 18:59 06:59 18:59 Intake Total 800 Balance 800 Intake: Oral 800 Other: Voiding Method Toilet # Voids 1 1 # Bowel Movements 1 - Exam Patient is awake, comfortable, no acute distress Examination of the heart S1 and S2 Examination of the lungs bilateral breath sounds are heard Abdomen is soft nontender Examination of lower extremities shows no evidence of edema D[employer]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 Acute kidney injury secondary to ATN secondary to hypovolemia further wors ened with the use of diuretics, ARB. UA benign. No hydronephrosis noted on kidney ultrasound. Left kidney atrophic. Creatinine 5.39 on admission and is 1.5 now. 2. Mild hyperkalemia secondary to acute kidney injury, Aldactone and entresto. Improved. 3. Chronic systolic CHF with ejection fraction of 20-25% with severe mitral and tricuspid regurgitation in 2020. 4. Chronic kidney disease stage IIIB with baseline creatinine 1.3-1.5 secondary to nephrosclerosis. 5. Hypertension with CK D. Blood pressure was low on initial admission but has increased over the last day or so. Hydralazine was restarted. Plan: OK to continue off of IVF. Patient is encouraged to increase oral intake.
--- NOTE | 2023-07-27 14:50 | P.PN ---
Subjective Progress Note Date: 07/27/23 Patient is a 71-year-old female with a known history of chronic CHF with systolic dysfunction ejection fraction 20 to 25%, cardiomyopathy, hypertension, hyperlipidemia, sickle cell trait and prior history of TIAs and dementia presents to ER with complaints of nausea, vomiting and not feeling well for the past 10 days. Patient also having poor oral intake. Patient is somewhat poor historian due to short-term memory loss. States that she had right flank pain this afternoon and felt like fever and mild chills. Denies any dysuria or hematuria. Denies any complaints of chest pain or shortness of breath. No complaints of leg swelling. No cough or sputum production. Patient was brought to the hospital by her son. EKG showed sinus bradycardia Blood pressure 92/57 on admission heart rate 48 and also ox 96% on room air. Respiratory rate 18 Laboratory data showed WBC 7.7 hemoglobin 13.1 platelets 256 Sodium 138 potassium 5.3 chloride 97 bicarb is 26 BUN 70 and creatinine 5.39, blood sugar is 134, Lactic acid 3.5, serum osmolality 311 Hypercalcemia 10.3. Liver enzymes are not elevated. Total bili 0.8 and troponin 0.037, proBNP 248. 07/22/2023 Patient is lying in the bed. Awake alert and mentation is at baseline. Tolerating oral diet slowly. No complaints of chest pain or shortness of br eath. No flank pain. No fever no chills. Chest x-ray this morning showed mild cardiomegaly. No acute cardiopulmonary process. Ultrasound renal showed no evidence for obstructive uropathy. Cholelithiasis. Laboratory pressure BUN 59 and creatinine improved to 4.19 today. Patient is voiding.. Nephrology is on board. 07/23/2023 Patient is sitting in the seat today. Awake alert and oriented. No complaints of chest pain or shortness of breath. Patient did have bowel movement today. No headache or dizziness or lightheadedness. Currently on IV hydration with normal saline at 75 cc/h. Renal function is improving with creatinine level 2.42 today. BUN 34. Potassium level is 4.3. Patient is tolerating oral diet. No nausea vomiting or diarrhea. No complaints of abdominal pain. 07/24/2023 Patient is currently sitting in the chair. Awake alert and baseline cognitive impairment. No complaints of chest pain or shortness of breath no nausea vomiting. No cough or sputum production. Patient is being current on IV hydration with normal saline. Laboratory showed sodium 146, potassium 4.7 chloride 103, BUN 20.5 and creatinine 1.7 and calcium 8.4. Patient has been afebrile. 07/25/2023 Patient is resting in the bed. Awake alert and oriented x2. Mentation is at baseline. No complaints of chest pain or shortness of breath. No nausea vomiting abdominal pain or diarrhea. Patient is tolerating oral diet. Blood pressure improved to 137/67, pulse 59 and respiration 15. Patient has been afebrile. Repeat laboratory data showed BUN 14.6 and creatinine 1.4., WBC 5.8 hemoglobin 12.3 and platelets 182. Magnesium 1.8. 07/27/2023 Patient is evaluated today she is currently resting in bed no acute complaints. Echocardiogram pending, cardiology has evaluated the patient and medications are being adjusted. Entresto increased and now off amiodarone. Renal function stable and patient remains off IV fluids at this time. TSH is normal at 1.850. Pt is afebrile, heart rate 62, blood pressure 154/69, 99%. Review of Systems Constitutional: Denied any fatigue denied any fever. Cardio vascular: denied any chest pain, palpitations Gastrointestinal: denied any nausea, vomiting, diarrhea Pulmonary: Denied any shortness of breath cough Neurologic denied any new focal deficits All inpatient medications were reviewed and appropriate changes in these medications as dictated in the interval history and assessment and plan. PHYSICAL EXAMINATION: Patient is lying in the bed. Awake alert and oriented x2-3. HEENT: Normocephalic. Neck is supple. Pupils reactive. Nostrils clear. Oral c avity is dry. Neck reveals no JVD, carotid bruits, or thyromegaly. CHEST EXAMINATION: Trachea is central. Symmetrical expansion. Lung medina clear to auscultation and percussion. CARDIAC: Normal S1, S2 with no gallops. No murmurs ABDOMEN: Soft. Bowel sounds present. Nontender. No organomegaly. No abdominal bruits. Extremities: reveal no edema. No clubbing or cyanosis Neurologically awake, alert, oriented x2. Able to move all extremities. No gross focal deficits noted Skin: No rash or skin lesions. Psychiatric: Coperative. Could not be assessed completely., Musculoskeletal: No joint swelling or deformity. Assessment Acute on chronic disease stage III due to vasomotor nephropathy and possible cardiorenal with underlying cardiomyopathy. improving Hyperkalemia secondary to acute kidney injury. resolved Lactic acidosis. resolved Mild troponin elevation Nausea vomiting and generalized weakness. Chronic CHF with systolic and diastolic dysfunction. Ejection fraction 20 to 25%. Nonischemic versus ischemic cardiomyopathy. History of ventricular tachycardia Hypertension Hyperlipidemia Sickle cell anemia Dementia/short-term memory loss History of TIA Ongoing nicotine addiction/ smoking Medication noncompliance. DVT prophylaxis with heparin subcu Plan: Patient will be continued on telemetry monitoring. IV fluids have been discontinued. Renal function is improved. Encourage oral intake.. Urinalysis and ultrasound renal showed no obstruction. Continue with Pepcid and symptomatic management for nausea. Cardiology consulted for evaluation, medications are being adjusted and confirmed with family Repeat echocardiogram pending. Lasix and spironolactone is on hold. Nephrology is on board Continue to follow closely. Home with family on discharge likely in the next 24 hours. The impression and plan of care has been dictated by Tayla Rios, Nurse Practitioner as directed. Dr. Herrera MD I have performed a history and physical examination and medical decision making of this patient, discussed the same with the dictator, and agree with the dic tators assessment and plan as written, documented as a scribe. Based on total visit time, I have performed more than 50% of this visit. Objective - Vital Signs Vital signs: Vital Signs Temp 97.4 F L 07/27/23 13:55 Pulse 62 07/27/23 13:55 Resp 17 07/27/23 13:55 BP 154/69 07/27/23 13:55 Pulse Ox 99 07/27/23 13:55 FiO2 Intake & Output 07/26/23 07/27/23 07/27/23 18:59 06:59 18:59 Intake Total 800 Balance 800 Intake: Oral 800 Other: Voiding Method Toilet # Voids 1 1 # Bowel Movements 1 - Labs CBC & Chem 7: 07/27/23 06:46 07/27/23 06:46 Labs: Abnormal Lab Results - Last 24 Hours (Table) 07/27/23 07/27/23 Range/Units 06:46 06:46 RBC 3.93 L (4.10-5.20) X 10*6/uL Hgb 10.4 L (12.0-15.0) g/dL Hct 32.0 L (37.2-46.3) % MCH 26.5 L (27.0-32.0) pg Chloride 110 H (96-109) mmol/L Est GFR (CKD-EPI) 37 L (>=60) BUN/Creatinine Ratio 9.00 L (12.00-20.00) Ratio Assessment and Plan Time with Patient: Less than 30
--- NOTE | 2023-07-27 18:08 | CA ---
Transthoracic Echo Report Name: Mariano Camara Age: 71 Gender: F : 03/27/1952 Exam Date: 07/27/2023 15:39 Exam Location: [place] [facility] Ht (in): 61 Wt (lb): 110 Ordering Physician: Christina Lama Attending/Referring Phys: Magazine Grinder Loader Jose Oropeza Procedure CPT: Indications: LV function Cardiac Hx: Technical Quality: Fair Contrast 1: Total Dose (mL): Contrast 2: Total Dose (mL): MEASUREMENTS (Male / Female) Normal Values 2D ECHO LV Diastolic Diameter PLAX 4.0 cm 4.2 - 5.9 / 3.9 - 5.3 cm LV Systolic Diameter PLAX 2.0 cm IVS Diastolic Thickness 1.3 cm 0.6 - 1.0 / 0.6 - 0.9 cm LVPW Diastolic Thickness 1.4 cm 0.6 - 1.0 / 0.6 - 0.9 cm LV Relative Wall Thickness 0.7 RV Internal Dim ED PLAX 2.7 cm LVOT Diameter 2.1 cm Aortic Root Diameter 3.0 cm LA Systolic Diameter LX 2.7 cm 3.0 - 4.0 / 2.7 - 3.8 cm LV Diastolic Volume MOD BP 44.8 cm??? 67 - 155 / 56 - 104 cm??? LV Systolic Volume MOD BP 19.1 cm??? 22 - 58 / 19 - 49 cm??? LV Ejection Fraction MOD BP 57.3 % >= 55 % LV Cardiac Index MOD BP 1066.6 cm???/min???m??? LV Diastolic Volume MOD 4C 48.9 cm??? LV Systolic Volume MOD 4C 21.7 cm??? LV Ejection Fraction MOD 4C 55.6 % LV Cardiac Index MOD 4C 1131.7 cm???/min???m??? LV Diastolic Length 4C 6.3 cm LV Systolic Length 4C 5.7 cm LV Diastolic Volume MOD 2C 40.9 cm??? LV Systolic Volume MOD 2C 16.5 cm??? LV Ejection Fraction MOD 2C 59.7 % LV Cardiac Index MOD 2C 1014.8 cm???/min???m??? LV Diastolic Length 2C 6.2 cm LV Systolic Length 2C 5.3 cm LA Volume 41.4 cm??? 18 - 58 / 22 - 52 cm??? LA Volume Index 28.2 cm???/m??? 16 - 28 cm???/m??? Ascending Aorta Diameter 3.2 cm DOPPLER AV Peak Velocity 160.7 cm/s AV Peak Gradient 10.3 mmHg AI Peak Velocity 377.0 cm/s AI Peak Gradient 56.8 mmHg AI Pressure Half Time 878.0 ms LVOT Peak Velocity 108.3 cm/s LVOT Peak Gradient 4.7 mmHg LVOT Velocity Time Integral 25.6 cm LVOT Stroke Volume 91.3 cm??? LVOT Stroke Volume Index 62.3 ml/m??? LVOT Cardiac Index 3795.1 cm???/min???m??? AV Area Cont Eq pk 2.4 cm??? MV Peak Velocity 96.6 cm/s MV Peak Gradient 3.7 mmHg MV Mean Velocity 47.1 cm/s MV Mean Gradient 1.2 mmHg MV Velocity Time Integral 29.8 cm MR Peak Velocity 343.2 cm/s MR Peak Gradient 47.1 mmHg Mitral E Point Velocity 62.7 cm/s Mitral A Point Velocity 95.5 cm/s Mitral E to A Ratio 0.7 MV Deceleration Time 244.1 ms MV E' Velocity 3.3 cm/s Mitral E to MV E' Ratio 19.3 TR Peak Velocity 285.7 cm/s TR Peak Gradient 32.6 mmHg Right Ventricular Systolic Press 37.6 mmHg PV Peak Velocity 111.6 cm/s PV Peak Gradient 5.0 mmHg FINDINGS Left Ventricle Normal LV size. Moderate concentric LVH. Left ventricular ejection fraction is estimated at 55-60 %.normal left ventricular wall motion. Grade 2 diastolic dysfunction. Right Ventricle Normal right ventricular size. Right Atrium Normal right atrial size. Left Atrium Normal left atrial size. Mitral Valve Structurally normal mitral valve. Mild to moderate MR. Aortic Valve Trileaflet aortic valve. Mild AI. Tricuspid Valve Structurally normal tricuspid valve. Mild TR. Pulmonic Valve Structurally normal pulmonic valve. Mild PI. Pericardium No pericardial effusion. Aorta Normal size aortic root and proximal ascending aorta. CONCLUSIONS 1. Normal left ventricular size and systolic function 2. Mild to moderate mitral with mild aortic and tricuspid regurgitation and mild pulmonary hypertension. Previewed by: Dr. Pauline Lee MD (Electronically Signed) Final Date: 27 July 2023 18:07
[2023-07-27] MEDS: FAMOTIDINE 20 MG TAB PO SCH (20:13)
[2023-07-27] MEDS: SACUBITRIL/VALSARTAN 49 MG-51 MG TABLET PO SCH (20:13)
[2023-07-28] MEDS: ATORVASTATIN 40 MG TAB PO SCH (09:45)
[2023-07-28] MEDS: hydrALAZINE HCL 25 MG TAB PO SCH (09:46)
[2023-07-28] MEDS: ISOSORBIDE MONONITRATE ER 30 MG TAB.ER.24H PO SCH (09:46)
[2023-07-28] MEDS: CLOPIDOGREL 75 MG TAB PO SCH (09:46)
[2023-07-28] MEDS: SACUBITRIL/VALSARTAN 49 MG-51 MG TABLET PO SCH (09:46)
[2023-07-28] MEDS: METOPROLOL TARTRATE 12.5 MG TAB PO SCH (09:47)
[2023-07-28] MEDS: HEPARIN SODIUM,PORCINE 5,000 UNIT/ML 1 ML VIAL SQ SCH (09:47)
--- NOTE | 2023-07-28 10:34 | P.PN ---
Subjective HISTORY OF PRESENT ILLNESS: This is a 71-year-old female with a past medical history significant for cardiomyopathy, valvular heart disease, hypertension, hyperlipidemia, TIA, and congestive heart failure. Patient follows in the office with Dr. Bear. We have been asked to see the patient in consultation for hypertension. Patient examined at the bedside. Patient states she is unsure as to why she is in the hospital. She does report that she was nauseated at home. She states that she was not vomiting and did not have any diarrhea. At the time of examination, the patient denies any chest pain or pressure. She denies any shortness of breath. Blood pressure elevated with a recent reading of 173/76. Heart rate around 50. Patient was asked about her oral medication list and she is unsure of what medications she is currently taking. She does not believe she is taking amiodarone. She is unable to recall if she is still taking Entresto at home. She states her son would be able to verify her home medication list. * EKG reveals sinus mechanism with nonspecific ST-T wave changes. * Chest xray mild cardio medically. Negative for acute cardiopulmonary process * Most recent echocardiogram obtained in the office in February 2023 revealed ejection fraction 55%, [id number] mitral regurgitation, mild aortic re gurgitation, mild tricuspid regurgitation * Cardiac catheterization history: Unknown 07/28/2023 Patient examined this morning at the bedside. Patient denies chest pain or pressure. She denies shortness of breath. Echocardiogram completed revealing ejection fraction 55-60%, mild to moderate MR, mild TR. PHYSICAL EXAM: VITAL SIGNS: Reviewed. GENERAL: Well-developed in no acute distress. HEENT: Head is normocephalic. Pupils are equal, round. Sclerae anicteric. Mucous membranes of the mouth are moist. Neck supple. No JVD or thyromegaly LUNGS: Respirations even and unlabored. Lungs essentially clear to auscultation bilaterally. HEART: Regular rate and rhythm. S1 and S2 heard. Systolic murmur noted ABDOMEN: Soft. Nondistended. Nontender. EXTREMITIES: Normal range of motion. No clubbing or cyanosis. Peripheral pulses intact. No lower extremity edema NEUROLOGIC: Awake and alert. Oriented x 3. ASSESSMENT: Nausea Acute on chronic kidney disease Hypertension, uncontrolled History of cardiomyopathy, suspected nonischemic, with recovered EF, most recently 55% in February 2023 Hypertension Hyperlipidemia Valvular heart disease Chronic congestive heart failure with recovered EF, currently euvolemic History of TIA PLAN: Continue current cardiac medications Continue to monitor blood pressure Patient is currently stable for discharge from a cardiac standpoint Patient to follow-up in the office with Dr. Bear post discharge Nurse practitioner note has been reviewed by physician. Signing provider agrees with the documented findings, assessment, and plan of care. Objective - Vital Signs Vital signs: Vital Signs Temp 98.7 F 07/28/23 08:00 Pulse 62 07/28/23 08:03 Resp 16 07/28/23 08:03 BP 127/83 07/28/23 08:00 Pulse Ox 100 07/28/23 08:00 FiO2 Intake & Output 07/27/23 07/28/23 07/28/23 18:59 06:59 18:59 Other: Voiding Method Toilet Toilet # Voids 5 2 1 - Labs CBC & Chem 7: 07/27/23 06:46 07/27/23 06:46 Labs: Abnormal Lab Results - Last 24 Hours (Table) 07/27/23 07/27/23 Range/Units 06:46 06:46 RBC 3.93 L (4.10-5.20) X 10*6/uL Hgb 10.4 L (12.0-15.0) g/dL Hct 32.0 L (37.2-46.3) % MCH 26.5 L (27.0-32.0) pg Chloride 110 H (96-109) mmol/L Est GFR (CKD-EPI) 37 L (>=60) BUN/Creatinine Ratio 9.00 L (12.00-20.00) Ratio
[2023-07-28 11:14] LABS: BUN/Creat Ratio 11.72 Ratio (12.00-20.00); Blood Urea Nitrogen 21.1 mg/dL (9.0-27.0); Calcium 8.7 mg/dL (8.7-10.3); Carbon Dioxide 25.5 mmol/L (21.6-31.8); Chloride 110 mmol/L (96-109); Glucose 93 mg/dL (70-110); Potassium 4.6 mmol/L (3.5-5.5); Sodium 144 mmol/L (135-145)
[2023-07-28 13:18] VITALS: BP 112/63; PULSE 58; RESP 17; TEMP 97.7
--- NOTE | 2023-07-28 21:22 | P.PN ---
Subjective For follow-up for acute kidney injury. Renal function has improved significantly with creatinine down to 1.5 from 5.3 on initial admission. No evidence of obstructive uropathy on ultrasound. No significant complaints today. Patient's IV access was lost. She is currently refusing another IV. Cr stable at 1.5 Objective - Vital Signs Vital signs: Vital Signs Temp 97.7 F 07/28/23 12:31 Pulse 58 L 07/28/23 12:31 Resp 17 07/28/23 12:31 BP 112/63 07/28/23 12:31 Pulse Ox 98 07/28/23 12:31 FiO2 Intake & Output 07/28/23 07/28/23 07/29/23 06:59 18:59 06:59 Weight 49.895 kg Other: Voiding Method Toilet # Voids 2 1 - Exam Patient is awake, comfortable, no acute distress Examination of the heart S1 and S2 Examination of the lungs bilateral breath sounds are heard Abdomen is soft nontender Examination of lower extremities shows no evidence of edema MORNING CAREGIVER exam grossly intact - Labs CBC & Chem 7: 07/27/23 06:46 07/28/23 07:02 Labs: Abnormal Lab Results - Last 24 Hours (Table) 07/28/23 Range/Units 07:02 Chloride 110 H (96-109) mmol/L Creatinine 1.8 H (0.6-1.5) mg/dL Est GFR (CKD-EPI) 30 L (>=60) BUN/Creatinine Ratio 11.72 L (12.00-20.00) Ratio Assessment and Plan Assessment: 1. Acute kidney injury secondary to ATN secondary to hypovolemia further worsened with the use of diuretics, ARB. UA benign. No hydronephrosis noted on kidney ultrasound. Left kidney atrophic. Creatinine 5.39 on admission and is 1.5 now. 2. Mild hyperkalemia secondary to acute kidney injury, Aldactone and entresto. Improved. 3. Chronic systolic CHF with ejection fraction of 20-25% with severe mitral and tricuspid regurgitation in 2020. 4. Chronic kidney disease stage IIIB with baseline creatinine 1.3-1.5 secondary to nephrosclerosis. 5. Hypertension with CK D. Blood pressure was low on initial admission but has increased over the last day or so. Hydralazine was restarted. Plan: OK to continue off of IVF. Patient is encouraged to increase oral intake.
--- NOTE | 2023-07-31 08:51 | CDI ---
Documentation Clarification Form Date: 07/31/23 From: Oliva Lamb Admit Date: 07/21/2023 05:39:00 PM Patient Name: Mariano Camara Visit Number: [id number] Discharge Date: 07/28/2023 03:10:00 PM ATTENTION: The Clinical Documentation Specialists (CDI) and [facility] Coding Staff appreciate your assistance in clarifying documentation. Please respond to the clarification below the line at the bottom and electronically sign. The CDI & [facility] Coding staff will review the response and follow-up if needed. Please note: Queries are made part of the Legal Health Record. If you have any questions, please contact the author of this message via ITS. Dr. Jena Alegre, Your patient has troponin level of: 1/3- 0.037. Please clarify if there is an additional diagnosis and/or clinical significance related to this value. Patient history/risk factors: HTN w CKD 3b & chronic combined systolic & diastolic CHF, sickle-cell disease, dementia, HLD Clinical indicators: Per H&P hyperkalemia secondary to JONO, lactic acidosis, mild troponin elevation. Treatment: IV fluids, EKG, ECHO, IV Heparin Is there an additional diagnosis and/or clinical significance related to the above lab result/information: [ x ] Type 2 [place] due to (specify cause _CHF___) [ ] Non-ischemic with acute myocardial injury [ ] No additional diagnosis/Not clinically significant [ ] Other, please specify [ ] Unable to determine Reference: [employer] Fourth [place] Definition of Myocardial Infraction Elevated Cardiac Troponin >99th percentile with Troponin rise and/or fall With Acute ischemia Acute Myocardial Infarction Atherosclerosis thrombosis Type I [place] Oxygen supply and demand imbalance Type II [place] (Please indicate etiology) Without acute ischemia Acute Myocardial Injury MTDD
--- NOTE | 2023-08-30 16:09 | CDI ---
Documentation Clarification Form Date: From: Sunita Tavera Phone: [phone] Admit Date: 07/21/2023 05:39:00 PM Patient Name: Mariano Camara Visit Number: [id number] Discharge Date: 07/28/2023 03:10:00 PM ATTENTION: The Clinical Documentation Specialists (CDI) and [facility] Coding Staff appreciate your assistance in clarifying documentation. Please respond to the clarification below the line at the bottom and electronically sign. The CDI & [facility] Coding staff will review the response and follow-up if needed. Please note: Queries are made part of the Legal Health Record. If you have any questions, please contact the author of this message via ITS. Dr. Pauline Lee Your patient has an elevated troponin level. Please clarify if there is an additional diagnosis and/or clinical significance related to this value. Patient history/risk factors: "71-year-old female with a known history of chronic CHF with systolic dysfunction ejection fraction 20 to 25%, cardiomyopathy, hypertension, hyperlipidemia, sickle cell trait and prior history of TIAs and dementia presents to ER with complaints of nausea, vomiting and not feeling well for the past 10 days." - Per Medical H&P on 07/21 Clinical indicators: "Troponin I presented be elevated due to acute kidney failure." "Denies: chest pain, palpitations, edema" "Denies: cough, dyspnea" - Per ED Note on 07/21 "We have been asked to see the patient in consultation for hypertension" - Per Cardiology note on 07/27 EKG: interpreted by RIANNAD, sinus rhythm (Rate 43 bpm), normal axis - Per ED Note on 07/21 Troponin: 07/21 - 0.037 Treatment: "Patient will be continued on telemetry monitoring. Continue with IV hydration with normal saline and monitor respiratory status closely" - Per Medical H&P on 07/21 Is there an additional diagnosis and/or clinical significance related to the above lab result/information: [xx ] Non-ischemic with acute myocardial injury [ ] No additional diagnosis/Not clinically significant [ ] Other, please specify [ ] Unable to determine MTDD
== END 2023-07-28 15:10 | disposition home or self-care (01) | DRG 683 ==
LOC: EC 14:37 → 4SSUR 17:39
PROVIDERS: ADMIT Internal Medicine; ATTEND Internal Medicine
DX: N17.0 Acute kidney failure with tubular necrosis (principal); E87.20 Acidosis, unspecified; I42.9 Cardiomyopathy, unspecified; I5A Non-ischemic myocardial injury (non-traumatic); I13.0 Hypertensive heart and chronic kidney disease with heart failure and stage 1 through stage 4 chronic kidney disease, or unspecified chronic kidney disease; I50.42 Chronic combined systolic (congestive) and diastolic (congestive) heart failure; D57.1 Sickle-cell disease without crisis; F03.90 Unspecified dementia, unspecified severity, without behavioral disturbance, psychotic disturbance, mood disturbance, and anxiety; N18.32 Chronic kidney disease, stage 3b; E87.5 Hyperkalemia; E78.5 Hyperlipidemia, unspecified; E86.1 Hypovolemia; E83.52 Hypercalcemia; I08.1 Rheumatic disorders of both mitral and tricuspid valves; K80.20 Calculus of gallbladder without cholecystitis without obstruction; F17.200 Nicotine dependence, unspecified, uncomplicated; Z91.148 Patient's other noncompliance with medication regimen for other reason; Z79.02 Long term (current) use of antithrombotics/antiplatelets; Z79.899 Other long term (current) drug therapy; Z86.73 Personal history of transient ischemic attack (TIA), and cerebral infarction without residual deficits; Z86.79 Personal history of other diseases of the circulatory system
CPT/HCPCS: 36415; 71045; 76770; 80048; 80053; 81001; 82570; 83605; 83735; 83880; 83930; 83935; 84133; 84300; 84443; 84484; 85025; 93005; 93306; 96361; 96374; 99285

== ENCOUNTER → 2023-10-27 | Outpatient (CLI) | payer MEDICARE, OTHER ==
--- NOTE | 2023-10-27 12:56 | XR ---
EXAMINATION TYPE: XR ankle complete LT DATE OF EXAM: 10/27/2023 COMPARISON: 08/01/2021 HISTORY: Pain FINDINGS: Three views of the ankle demonstrate the ankle mortise to be intact and symmetric. The joint spaces are preserved. The osseous structures are intact. Pes planus deformity with tiny plantar calcaneal spur. Mild demineralization and chronic appearing densities along the inferior margin of the medial m alleolus. Suspect this is related to remote trauma. Mild narrowing of the tibiotalar joint anteriorly with marginal spurring. IMPRESSION: 1. Finding suggests remote trauma involving the medial malleolus. 2. Pes planus deformity tiny calcaneal spur.
--- NOTE | 2023-10-27 12:58 | XR ---
EXAMINATION TYPE: XR foot complete LT DATE OF EXAM: 10/27/2023 COMPARISON: NONE HISTORY: Pain TECHNIQUE: Three views are submitted. FINDINGS: The osseous structures are intact. There is no acute fracture or dislocation. Mild hypertrophic ar thropathy first MTP. Small plantar calcaneal spur. Marginal spurring along the anterior margin of the tibiotalar joint. Mild demineralization. IMPRESSION: 1. Mild first MTP joint hypertrophic arthropathy. No erosive changes. 2. Pes planus deformity with tiny calcaneal spur.
[2023-10-27 15:24] LABS: Basophils # (A) 0.04 X 10*3/uL (0.00-0.10); Basophils % (A) 0.7 %; Eosinophils # (A) 0.09 X 10*3/uL (0.04-0.35); Eosinophils % (A) 1.6 %; HGB 11.3 g/dL (12.0-15.0); Lymphocytes # (A) 1.65 X 10*3/uL (0.90-5.00); Lymphocytes % (A) 28.9 %; MCH 26.5 pg (27.0-32.0); MCHC 32.3 g/dL (32.0-37.0); Mean Platelet Volume 12.7 FL (9.5-12.2); Monocytes # (A) 0.43 X 10*3/uL (0.20-1.00); Monocytes % (A) 7.5 %; NRBC Per 100 WBC 0 X 10*3/uL (0.00-0.01); Neutrophils # (A) 3.47 X 10*3/uL (1.80-7.70); Neutrophils % (A) 60.9 %; Platelet Count 242 X 10*3/uL (140-440); RBC 4.27 X 10*6/uL (4.10-5.20); RDW 14.2 % (11.5-14.5)
[2023-10-27 15:32] LABS: Chol/HDL Ratio 1.93 Ratio; LDL Cholesterol,Calculated 29.5 mg/dL (0.0-131.0)
[2023-10-27 15:58] LABS: ALT 17 U/L (8-44); AST 24 U/L (13-35); Albumin/Globulin Ratio 1.25 Ratio (1.60-3.17); Alkaline Phosphatase 100 U/L (41-126); Blood Urea Nitrogen 17.4 mg/dL (9.0-27.0); Calcium 9.7 mg/dL (8.7-10.3); Chloride 103 mmol/L (96-109); Globulin 3.2 g/dL (1.6-3.3); Glucose 104 mg/dL (70-110); Potassium 4.1 mmol/L (3.5-5.5); Sodium 142 mmol/L (135-145); Total Bilirubin 0.8 mg/dL (0.3-1.2); Total Protein 7.2 g/dL (6.2-8.2)
== END | disposition home or self-care (01) ==
LOC: LABWHC1 11:34
PROVIDERS: ATTEND Nurse Practitioner Family
DX: Z11.59 Encounter for screening for other viral diseases (principal); M77.32 Calcaneal spur, left foot; M21.40 Flat foot [pes planus] (acquired), unspecified foot; M19.072 Primary osteoarthritis, left ankle and foot; R73.03 Prediabetes
CPT/HCPCS: 36415; 80053; 80061; 85025

== ENCOUNTER 2023-11-09 12:25 | Emergency (ER) | payer MEDICARE, OTHER ==
[2023-11-09 12:44] VITALS: RESP 16; TEMP 98.4
--- NOTE | 2023-11-09 12:47 | ED ---
General Adult HPI - General Chief complaint: Extremity Injury, Lower Stated complaint: pain in left foot Time Seen by Provider: 11/09/23 12:30 Source: patient, RN notes reviewed, old records reviewed Mode of arrival: wheelchair - History of Present Illness Initial comments: This is 71-year-old female who presents to the emergency department with a history of dementia and her son does give most of the history. Patient's son states that 2 weeks ago she injured her left ankle she had x-rays and blood work and no one got back to her on the results of the x-ray and the patient is still limping around and she was given an ankle brace but he has been unable to get that prescription filled. Patient just wants us to take a look at the x-ray and see if she needs another x-ray to determine if she is fallen since then because the patient often does not remember. Patient denies any fever or chills. Patient denies any leg pain or foot pain. Patient only complains of ankle pain. Patient has had no other injury that he knows of but he states it is very possible she could have twisted it and not told him and forgotten about it - Related Data Home Medications Medication Instructions Recorded Confirmed Donepezil HCl [Aricept] 10 mg PO DAILY 08/01/21 07/21/23 Amoxic-Pot Clav 875-125Mg 1 tab PO Q12H 07/21/23 07/21/23 [Augmentin 875-125] Previous Rx's Medication Instructions Recorded Atorvastatin [Lipitor] 40 mg PO DAILY 30 Days #30 tab 08/04/21 Clopidogrel [Plavix] 75 mg PO DAILY 30 Days #30 tab 08/04/21 Furosemide [Lasix] 40 mg PO BID@0900,1600 #60 tab 08/04/21 Isosorbide Mononitrate ER [Imdur] 30 mg PO DAILY #30 tablet 08/04/21 Metoprolol Tartrate [Lopressor] 50 mg PO BID #60 tab 08/04/21 hydrALAZINE HCL [Apresoline] 25 mg PO BID #60 tab 08/04/21 Metoprolol Tartrate [Lopressor] 12.5 mg PO BID 30 Days #60 tab 07/28/23 Sacubitril/Valsartan [Entresto 49 1 each PO BID 30 Days #60 tab 07/28/23 mg-51 mg Tablet] Allergies Allergy/AdvReac Type Severity Reaction Status Date / Time No Known Allergies Allergy Verified 07/21/23 14:59 Review of Systems ROS Statement: Those systems with pertinent positive or pertinent negative responses have been documented in the HPI. ROS Other: All systems not noted in ROS Statement are negative. Past Medical History Past Medical History: Heart Failure, Dementia, Hyperlipidemia, Hypertension Additional Past Medical History / Comment(s): Sickle cell anemia, pt states she thinks she may have had a prior TIA History of Any Multi-Drug Resistant Organisms: None Reported Past Surgical History: Tubal Ligation Past Anesthesia/Blood Transfusion Reactions: No Reported Reaction Past Psychological History: No Psychological Hx Reported Smoking Status: Current some day smoker Past Alcohol Use History: None Reported Past Drug Use History: None Reported - Past Family History Father Family Medical History: No Reported History Additional Family Medical History / Comment(s): Father was healthy Mother Family Medical History: Hypertension General Exam - General Exam Comments Initial Comments: GENERAL Patient is well-developed and well-nourished. Patient is in mild distress. EYES Patient's pupils are equal and round. Extraocular motion is intact SKIN Unremarkable NEURO The patient is alert and oriented -3 PYSCH Patient has normal interpersonal interactions. MUSCULOSKELETAL Patient's left ankle is swollen in the lateral and medial malleolus. Both lateral and medial are also tender. There is no warmth to the ankle is no redness patient has good cap refill. Course Vital Signs 11/09/23 11/09/23 12:29 12:43 Temperature 98.4 F Pulse Rate 65 86 Respiratory 16 16 Rate Blood Pressure 94/55 100/60 O2 Sat by Pulse 94 L 98 Oximetry Medical Decision Making - Medical Decision Making Was pt. sent in by a medical professional or institution (, PA, SETTER OUT, urgent care, hospital, or group home...) When possible be specific @ -No Did you speak to anyone other than the patient for history (EMS, parent, family, police, friend...)? What history was obtained from this source @ -Son gave most of the history because the patient has significant dementia Did you review nursing and triage notes (agree or disagree)? Why? @ -I reviewed and agree with nursing and triage notes Were old charts reviewed (outside hosp., previous admission, EMS record, old EKG, old radiological studies, urgent care reports/EKG's, group home records)? Report findings @ -I reviewed prior radiological studies Differential Diagnosis (chest pain, altered mental status, abdominal pain women, abdominal pain men, vaginal bleeding, weakness, fever, dyspnea, syncope, headache, dizziness, GI bleed, back pain, seizure, CVA, palpatations, mental health, musculoskeletal)? @ -Differential Musculoskeletal Muscular strain, contusion, ligament sprain, fracture, arthritis, septic arthritis, bursitis, cellulitis, muscle spasm, nerve compression, DVT, arterial occlusion, herpes zoster, electrolyte abnormality, tumor.... This is not meant to be in all inclusive list EKG interpreted by me (3pts min.). @ -As above X-rays interpreted by me (1pt min.). @ -X-ray of the ankle shows no acute abnormality CT interpreted by me (1pt min.). @ -None done U/S interpreted by me (1pt. min.). @ -None done What testing was considered but not performed or refused? (CT, X-rays, U/S, labs)? Why? @ -None What meds were considered but not given or refused? Why? @ -None Did you discuss the management of the patient with other professionals (professionals i.e. , PA, SETTER OUT, lab, RT, psych nurse, nursing home social worker, brim shaper, teacher, admissions officer, case management social worker)? Give summary @ -No Was smoking cessation discussed for >3mins.? @ -No Was critical care preformed (if so, how long)? @ -No Were there social determinants of health that impacted care today? How? (Homelessness, low income, unemployed, alcoholism, drug addiction, transp ortation, low edu. Level, literacy, decrease access to med. care, snf, rehab)? @ -No Was there de-escalation of care discussed even if they declined (Discuss DNR or withdrawal of care, Hospice)? DNR status @ -No What co-morbidities impacted this encounter? (DM, HTN, Smoking, COPD, CAD, Cancer, CVA, ARF, Chemo, Hep., AIDS, mental health diagnosis, sleep apnea, morbid obesity)? @ -None Was patient admitted / discharged? Hospital course, mention meds given and route, prescriptions, significant lab abnormalities, going to OR and other pertinent info. @ -Patient was given an air splint and told to follow-up with orthopedics and weight-bear as tolerated Undiagnosed new problem with uncertain prognosis? @ -No Drug Therapy requiring intensive monitoring for toxicity (Heparin, Nitro, Insulin, Cardizem)? @ -No Were any procedures done? @ -No Diagnosis/symptom? @ -Ankle sprain Acute, or Chronic, or Acute on Chronic? @ -Acute Uncomplicated (without systemic symptoms) or Complicated (systemic symptoms)? @ -Uncomplicated Side effects of treatment? @ -No Exacerbation, Progression, or Severe Exacerbation? @ -No Poses a threat to life or bodily function? How? (Chest pain, [place], [place], pneumonia, PE, COPD, DKA, ARF, appy, cholecystitis, CVA, Diverticulitis, Homicidal, Suicidal, threat to staff... and all critical care pts) @ -No Disposition Clinical Impression: Ankle sprain Disposition: HOME SELF-CARE Condition: Good Instructions (If sedation given, give patient instructions): Ankle Sprain (ED) Is patient prescribed a controlled substance at d/c from ED?: No Referrals: Kalpesh Gaona MD [STAFF PHYSICIAN] - 1-2 days Time of Disposition: 14:19
[2023-11-09] MEDS: KETOROLAC 15 MG/ML 1 ML VIAL IM STA (12:53)
--- NOTE | 2023-11-09 14:11 | XR ---
EXAMINATION TYPE: XR foot complete LT DATE OF EXAM: 11/09/2023 COMPARISON: 10/27/2013 HISTORY: Pain TECHNIQUE: Three views are submitted. FINDINGS: The osseous structures are intact. There is no acute fracture or dislocation. Diffuse osteopenia. There is slight hallux valgus deformity first digit with mild first MTP joint arthropathy. Tiny calca nakul spur. Diffuse mild osteopenia. There is a subtle or slight pes planus deformity. Stable sclerosi s along the posterior margin of the calcaneus likely chronic. Tiny spur based fifth metatarsal. IMPRESSION: 1. No acute fracture or dislocation. If symptoms persist, follow-up exam in 7 to 10 days could be ob tained. 2. Small plantar calcaneal spur. 3. Mild first MTP joint hypertrophic arthropathy
[2023-11-09 14:53] VITALS: BP 132/65; PULSE 68
== END 2023-11-09 14:41 | disposition home or self-care (01) ==
LOC: EC 12:25
DX: S93.409A Sprain of unspecified ligament of unspecified ankle, initial encounter (principal); I11.0 Hypertensive heart disease with heart failure; I50.9 Heart failure, unspecified; F17.200 Nicotine dependence, unspecified, uncomplicated; X58.XXXA Exposure to other specified factors, initial encounter
CPT/HCPCS: 73630; 99284; 96372; J1885

== ENCOUNTER 2024-01-17 14:37 | Emergency (ER) | payer MEDICARE, OTHER ==
[2024-01-17 15:12] VITALS: RESP 18; TEMP 97.9
--- NOTE | 2024-01-17 15:15 | XR ---
EXAMINATION TYPE: XR ankle complete LT DATE OF EXAM: 01/17/2024 COMPARISON: NONE HISTORY: Pain FINDINGS: Three views of the ankle demonstrate the ankle mortise to be intact and symmetric. The joint spaces are preserved. The osseous structures are intact. Tiny density inferior to the medial malleolus sta ble and chronic. Tiny plantar calcaneal spur. Mild generalized osteopenia. IMPRESSION: 1. Chronic deformities along the inferior medial malleolus likely on the basis remote trauma and anjelica lar to prior exam.
--- NOTE | 2024-01-17 15:32 | ED ---
Lower Extremity Injury HPI - General Chief Complaint: Extremity Injury, Lower Stated Complaint: Injury to L ankle Time Seen by Provider: 01/17/24 14:50 Source: patient, RN notes reviewed Mode of arrival: wheelchair Limitations: no limitations - History of Present Illness Initial Comments: This is a 71-year-old female presents emergency department chief complaint of left ankle pain that is chronic but started worsening in pain yesterday evening. She denies any falls or injuries over the last 24 hours. She denies paresthesias or decrease in motor function. She denies previous surgery to the ankle. States she has not taken anything today for the pain. - Related Data Home Medications Medication Instructions Recorded Confirmed Donepezil HCl [Aricept] 10 mg PO DAILY 08/01/21 07/21/23 Amoxic-Pot Clav 875-125Mg 1 tab PO Q12H 07/21/23 07/21/23 [Augmentin 875-125] Previous Rx's Medication Instructions Recorded Atorvastatin [Lipitor] 40 mg PO DAILY 30 Days #30 tab 08/04/21 Clopidogrel [Plavix] 75 mg PO DAILY 30 Days #30 tab 08/04/21 Furosemide [Lasix] 40 mg PO BID@0900,1600 #60 tab 08/04/21 Isosorbide Mononitrate ER [Imdur] 30 mg PO DAILY #30 tablet 08/04/21 Metoprolol Tartrate [Lopressor] 50 mg PO BID #60 tab 08/04/21 hydrALAZINE HCL [Apresoline] 25 mg PO BID #60 tab 08/04/21 Metoprolol Tartrate [Lopressor] 12.5 mg PO BID 30 Days #60 tab 07/28/23 Sacubitril/Valsartan [Entresto 49 1 each PO BID 30 Days #60 tab 07/28/23 mg-51 mg Tablet] Allergies Allergy/AdvReac Type Severity Reaction Status Date / Time No Known Allergies Allergy Verified 01/17/24 14:49 Review of Systems ROS Statement: Those systems with pertinent positive or pertinent negative responses have been documented in the HPI. ROS Other: All systems not noted in ROS Statement are negative. Past Medical History Past Medical History: Heart Failure, Dementia, Hyperlipidemia, Hypertension Additional Past Medical History / Comment(s): Sickle cell anemia, pt states she thinks she may have had a prior TIA History of Any Multi-Drug Resistant Organisms: None Reported Past Surgical History: Tubal Ligation Past Anesthesia/Blood Transfusion Reactions: No Reported Reaction Past Psychological History: No Psychological Hx Reported Smoking Status: Current some day smoker Past Alcohol Use History: None Reported Past Drug Use History: None Reported - Past Family History Father Family Medical History: No Reported History Additional Family Medical History / Comment(s): Father was healthy Mother Family Medical History: Hypertension General Exam - General Exam Comments Initial Comments: Visual Physical Exam Vital signs reviewed General: Well-appearing, nontoxic, no acute distress. Head: Normocephalic, atraumatic Eyes: PERRLA, EOMI ENT: Airway patent Chest: Nonlabored breathing Skin: No visual rash, normal skin tone Neuro: Alert and oriented 3 Musculoskeletal: No gross abnormalities Limitations: no limitations General appearance: alert, in no apparent distress Head exam: Present: atraumatic, normocephalic, normal inspection Eye exam: Present: normal appearance, PERRL, EOMI. Absent: scleral icterus, conjunctival injection, periorbital swelling ENT exam: Present: normal exam, mucous membranes moist Neck exam: Present: normal inspection. Absent: tenderness, meningismus, lymphadenopathy Respiratory exam: Present: normal lung sounds bilaterally. Absent: respiratory distress, wheezes, rales, rhonchi, stridor Cardiovascular Exam: Present: regular rate, normal rhythm, normal heart sounds. Absent: systolic murmur, diastolic murmur, rubs, gallop, clicks GI/Abdominal exam: Present: soft, normal bowel sounds. Absent: distended, tenderness, guarding, rebound, rigid Extremities exam: Present: normal inspection, full ROM, normal capillary refill. Absent: tenderness, pedal edema, joint swelling, calf tenderness Left Ankle exam: Present: normal inspection, full ROM (passive ROM pain with plantar and dorsiflexion), tenderness (medial malleolus). Absent: swelling Back exam: Present: normal inspection Neurological exam: Present: alert, oriented X3, CN II-XII intact Psychiatric exam: Present: normal affect, normal mood Skin exam: Present: warm, dry, intact, normal color. Absent: rash Course Vital Signs 01/17/24 01/17/24 14:47 16:44 Temperature 97.9 F Pulse Rate 70 72 Respiratory 18 18 Rate Blood Pressure 128/72 124/84 O2 Sat by Pulse 98 97 Oximetry Medical Decision Making - Medical Decision Making Was pt. sent in by a medical professional or institution (, LUCILA, SHOPPER MARKETING MANAGER, urgent care, hospital, or correction...) When possible be specific @ -No Did you speak to anyone other than the patient for history (EMS, parent, family, police, friend...)? What history was obtained from this source @ -No Did you review nursing and triage notes (agree or disagree)? Why? @ -I reviewed and agree with nursing and triage notes Were old charts reviewed (outside hosp., previous admission, EMS record, old EKG, old radiological studies, urgent care reports/EKG's, correction records)? Report findings @ -No old charts were reviewed Differential Diagnosis (chest pain, altered mental status, abdominal pain women, abdominal pain men, vaginal bleeding, weakness, fever, dyspnea, syncope, headache, dizziness, GI bleed, back pain, seizure, CVA, palpatations, mental health, musculoskeletal)? @ -Differential Musculoskeletal Muscular strain, contusion, ligament sprain, fracture, arthritis, septic arthritis, bursitis, cellulitis, muscle spasm, nerve compression, DVT, arterial occlusion, herpes zoster, electrolyte abnormality, tumor.... This is not meant to be in all inclusive list EKG interpreted by me (3pts min.). @ -None X-rays interpreted by me (1pt min.). @ -x-ray of the left ankle reveals chronic deformities along the inferior medial malleolus CT interpreted by me (1pt min.). @ -None done U/S interpreted by me (1pt. min.). @ -None done What testing was considered but not performed or refused? (CT, X-rays, U/S, labs)? Why? @ -None What meds were considered but not given or refused? Why? @ -None Did you discuss the management of the patient with other professionals (professionals i.e. LUCILA Montalvo, SHOPPER MARKETING MANAGER, lab, RT, psych nurse, vp digital marketing social media and crm, gang head saw operator, teacher, admissions officer, case packer and sealer)? Give summary @ -No Was smoking cessation discussed for >3mins.? @ -No Was critical care preformed (if so, how long)? @ -No Were there social determinants of health that impacted care today? How? (Homelessness, low income, unemployed, alcoholism, drug addiction, transportation, low edu. Level, literacy, decrease access to med. care, residential, rehab)? @ -No Was there de-escalation of care discussed even if they declined (Discuss DNR or withdrawal of care, Hospice)? DNR status @ -No What co-morbidities impacted this encounter? (DM, HTN, Smoking, COPD, CAD, Cancer, CVA, ARF, Chemo, Hep., AIDS, mental health diagnosis, sleep apnea, morbid obesity)? @ -None Was patient admitted / discharged? Hospital course, mention meds given and route, prescriptions, significant lab abnormalities, going to OR and other pertinent info. @ -Discharge. 71-year-old female chief complaint of left ankle pain. On examination there is no noted neurovascular deficits and normal cap refill. Pain is elicited with passive range of motion including plantar and dorsiflexion of the ankle. There is point tenderness over the medial malleolus. X-ray nonconcerning for acute fracture. Patient given dose of Toradol which aided in symptomatic relief. Recommend that patient spanish moss picker over the counter Biofreeze or lidocaine to apply directly to her area of concern for more comfort. Recommend resting the ankle in addition to icing and elevating. Recommend patient follows up with her primary care physician within the next week for further evaluation. Case discussed with Dr. Florez Undiagnosed new problem with uncertain prognosis? @ -No Drug Therapy requiring intensive monitoring for toxicity (Heparin, Nitro, Insulin, Cardizem)? @ -No Were any procedures done? @ -No Diagnosis/symptom? @ -ankle pain Acute, or Chronic, or Acute on Chronic? @ -acute Uncomplicated (without systemic symptoms) or Complicated (systemic symptoms)? @ -uncomplicated Side effects of treatment? @ -No Exacerbation, Progression, or Severe Exacerbation? @ -No Poses a threat to life or bodily function? How? (Chest pain, [place], [place], pneumonia, PE, COPD, DKA, ARF, appy, cholecystitis, CVA, Diverticulitis, Homicidal, Suicidal, threat to staff... and all critical care pts) @ -No Disposition Clinical Impression: Ankle pain, left Narrative: Please return to the Emergency Department if symptoms worsen or any other concerns. Disposition: HOME SELF-CARE Condition: Good Instructions (If sedation given, give patient instructions): Ankle Strain (ED) Is patient prescribed a controlled substance at d/c from ED?: No Referrals: Phillip Chatman MD [Primary Care Provider] - 1-2 days Time of Disposition: 16:15
[2024-01-17] MEDS: KETOROLAC 15 MG/ML 1 ML VIAL IM STA (16:22)
[2024-01-17 16:54] VITALS: BP 124/84; PULSE 72
== END 2024-01-17 16:45 | disposition home or self-care (01) ==
LOC: EC 14:37
DX: M25.572 Pain in left ankle and joints of left foot (principal); F17.200 Nicotine dependence, unspecified, uncomplicated
CPT/HCPCS: 73610; 99283; 96372; J1885

== ENCOUNTER 2024-04-30 13:55 | Emergency (ER) | payer MEDICARE, OTHER ==
--- NOTE | 2024-06-05 06:43 | XR ---
Patient Mariano Camara ID [id number] Order # EXAMINATION TYPE: XR ankle complete RT DATE OF EXAM: 04/30/2024 COMPARISON: No comparisons on downtime PACS. HISTORY: Right-sided pain TECHNIQUE: 3 view right ankle FINDINGS: Ankle mortise is intact. No acute displaced fractures evident. Soft tissues appear normal. Small plantar calcaneal heel spur present. Follow up exams can be performed 7-10 days from acute trau ma for continued pain. IMPRESSION: 1. No acute osseous abnormality right ankle
--- NOTE | 2024-06-05 06:43 | XR ---
Patient Mariano Camara ID [id number] Order # EXAMINATION TYPE: XR foot complete RT DATE OF EXAM: 04/30/2024 COMPARISON: No comparison on downtime PACS HISTORY: Right-sided pain TECHNIQUE: 3 view right foot FINDINGS: Hallux valgus deformity is present. Joint spaces appear preserved. Alignment is otherwise p reserved. Plantar calcaneal heel spur is present. Soft tissues are unremarkable. No acute fracture or dislocation evident. Follow up exams can be performed 7-10 days from acute traum a for continued pain. IMPRESSION: 1. No acute osseous abnormality right foot. 2. Hallux valgus deformity.
== END 2024-04-30 16:10 | disposition home or self-care (01) ==
LOC: EC 13:55
CPT/HCPCS: 99283